=== PATIENT | male | born 1935 | race Caucasian/White ===

== ENCOUNTER → 2016-04-10 | Outpatient (CLI) | payer BC ==
[~2016-04-10] MED LIST: ACET-1175 PO; ALBUAER INH; ASCA500 PO; ASPI81TA28 PO; ATOR-26 PO; CHOL100010 PO; CLOP1TAB15 PO; DICL1GEL12 TOP; DOCU-94 PO; DXY100 PO; FINA5TAB PO; FLVHFA110 INH; INSDGI SC; INSPMPHMLG; INSPMPHMLG SC; IPRA1AER2 INH; LEVO-17 PO; LSN5 PO; MELO15TA4 PO; METO-217 PO; METO100T44 PO; MGNO400 PO; MULT-618 PO; MULT-845 PO; OXYC-57 PO; PHEN-876 PO; PLN/10 PO; PLV75 PO; POLY335019 PO; RBTUDL5 PO; SULF800T23 PO; TAMS0.4C38 PO
[2016-04-10 11:00] LABS: ESTIMATED AVERAGE GLUCOSE 169 mg/dl; HA1C FLAG Normal (Normal)
== END | disposition home or self-care (01) ==
LOC: C.LABBC 08:39
PROVIDERS: ATTEND Nurse Practitioner Adult Health
DX: E10.8 Type 1 diabetes mellitus with unspecified complications (principal)

== ENCOUNTER → 2016-05-24 | Outpatient (CLI) | payer BC ==
[~2016-05-24] MED LIST changes: -CHOL100010 PO; -DXY100 PO; -FLVHFA110 INH; -INSPMPHMLG SC; -METO100T44 PO; +METO1TAB69 PO; -SULF800T23 PO
--- NOTE | 2016-05-24 14:19 | DIAGNOSTIC IMAGING REPORT ---
ULTRASOUND KIDNEYS AND BLADDER CLINICAL HISTORY: Chronic kidney disease. COMPARISON STUDY: Abdominal CT dated 11/05/2015. Renal ultrasound dated 02/07/2014. TECHNIQUE: Real-time, grayscale, and color flow sonography of the kidneys and bladder is performed. Images are reviewed in the transverse and longitudinal planes. FINDINGS: Kidneys: The kidneys are enlarged and demonstrate cortical atrophy. The kidneys are echogenic echogenic suggest with medical renal disease. The right kidney measures 16.5 x 8.4 x 7.6 cm and the left kidney measures 14.1 x 5.0 x 5.3 cm. There is no hydronephrosis. No shadowing renal calculi are identified. There is no sonographic evidence of contour deforming renal mass lesion. No perinephric fluid is identified. Bladder: Prostatomegaly is noted. The bladder is decompressed. The bladder wall appears thickened and trabeculated suggesting chronic outlet obstruction. A left ureteral jet was noted. IMPRESSION: 1. The kidneys are enlarged but demonstrate cortical atrophy and increased echotexture consistent with medical renal disease. 2. There is mild right hydronephrosis. No hydronephrosis is seen on the left. 3. Prostatomegaly with evidence of chronic bladder outlet obstruction. Electronically signed by: Arvind Rea M.D. 05/24/2016 2:18 PM Dictated Date/Time: 05/24/2016 2:15 PM
[2016-05-24 16:55] LABS: BLOOD UREA NITROGEN 52 mg/dl (7-18)
== END | disposition home or self-care (01) ==
LOC: C.ULTRBC 13:02
PROVIDERS: ATTEND Nurse Practitioner Family
DX: D49.4 Neoplasm of unspecified behavior of bladder (principal); N28.9 Disorder of kidney and ureter, unspecified

== ENCOUNTER → 2016-05-30 | Outpatient (CLI) | payer BC ==
[2016-05-30 14:48] LABS: BLOOD UREA NITROGEN 51 mg/dl (7-18); BUN/CREATININE RATIO 17.1 (10-20); CALCIUM 8.7 mg/dl (8.5-10.1); CARBON DIOXIDE 23 mmol/L (21-32); CHLORIDE 107 mmol/L (98-107); GLUCOSE 157 mg/dl (70-99); MAGNESIUM 1.9 mg/dl (1.8-2.4); PHOSPHORUS 3.8 mg/dl (2.5-4.9); POTASSIUM 4.1 mmol/L (3.5-5.1); SODIUM 139 mmol/L (136-145)
== END | disposition home or self-care (01) ==
LOC: C.LAB1850 12:25
PROVIDERS: ATTEND Internal Medicine Nephrology
DX: N28.9 Disorder of kidney and ureter, unspecified (principal)

== ENCOUNTER 2016-06-03 05:04 | Day surgery (SDC) | payer BC ==
[2016-05-23 09:37] VITALS: BMI 29.0
--- NOTE | 2016-05-23 10:18 | PAT Medication Instructions ---
Service Date May 23, 2016. Current Home Medication List Acetaminophen (Tylenol), 650 MG PO HS Albuterol (Proventil Hfa), 2 PUFFS INH Q4 PRN for Cough Ascorbic Acid (Vitamin C), 1 TAB PO QAM Aspirin (Aspirin Ec), 81 MG PO QAM Atorvastatin (Lipitor), 80 MG PO HS Diclofenac Sodium (Topical) (Voltaren 1% Top Gel), 1 DOSE TOP UD PRN for Pain Felodipine (Felodipine ER), 10 MG PO QAM Finasteride (Proscar), 5 MG PO QAM Insulin Human Lispro (Insulin Humalog Pump ), 1 EA N/A UD Ipratropium-Albuterol (Combivent Respimat), 1 PUFFS INH QID PRN for SOB/Wheezing Lisinopril (Lisinopril), 5 MG PO QAM Meloxicam (Meloxicam), 15 MG PO DAILY Metoprolol Succ (Toprol Xl) (Toprol-Xl ), 100 MG PO QAM Metoprolol Succinate (Toprol Xl), 50 MG PO HS Multiple Vitamins W/ Minerals (Centrum Silver Adult 50+), 1 TAB PO QAM Tamsulosin Hcl (Flomax), 0.4 MG PO HS Medication Instructions For Your Scheduled Surgery - Hold the following medications 24 hours prior to surgery: Diclofenac Sodium (Topical) (Voltaren 1% Top Gel), 1 DOSE TOP UD PRN for Pain - Hold the following medications the morning of surgery: Ascorbic Acid (Vitamin C), 1 TAB PO QAM Multiple Vitamins W/ Minerals (Centrum Silver Adult 50+), 1 TAB PO QAM Meloxicam (Meloxicam), 15 MG PO DAILY (otherwise okay to continue per surgeon) Lisinopril (Lisinopril), 5 MG PO QAM - Take the following medications the morning of surgery with a sip of water: Aspirin (Aspirin Ec), 81 MG PO QAM Albuterol (Proventil Hfa), 2 PUFFS INH Q4 PRN for Cough (use if needed; BRING TO HOSPITAL) Metoprolol Succ (Toprol Xl) (Toprol-Xl ), 100 MG PO QAM Felodipine (Felodipine ER), 10 MG PO QAM Finasteride (Proscar), 5 MG PO QAM Ipratropium-Albuterol (Combivent Respimat), 1 PUFFS INH QID PRN for SOB/Wheezing - Take the following medications as scheduled the night before surgery: Tamsulosin Hcl (Flomax), 0.4 MG PO HS Albuterol (Proventil Hfa), 2 PUFFS INH Q4 PRN for Cough Metoprolol Succinate (Toprol Xl), 50 MG PO HS Acetaminophen (Tylenol), 650 MG PO HS Atorvastatin (Lipitor), 80 MG PO HS Ipratropium-Albuterol (Combivent Respimat), 1 PUFFS INH QID PRN for SOB/Wheezing - Keep at basal rate and do not bolus after midnight: Insulin Human Lispro (Insulin Humalog Pump ), 1 EA N/A UD If you have any questions please call us at [phone] or [phone] or [phone]
[2016-05-23 10:56] LABS: BASO % 0.1 %; BASO ABS # 0.01 K/uL (0-0.2); COMPLETE YES; EOS % 1.3 %; HEMATOCRIT 40.1 % (42-52); IG% 0.4 %; LYMPH % 14.7 %; LYMPH ABS # 1.22 K/uL (1.2-3.4); MEAN CELL VOLUME 87.9 fL (80-100); MEAN CORPUSCULAR HEMOGLOBIN 29.4 pg (25-34); MEAN CORPUSCULAR HGB CONC 33.4 g/dl (32-36); MEAN PLATELET VOLUME 10.6 fL (7.4-10.4); MONO % 10.5 %; PLATELET COUNT 202 K/uL (130-400); RED BLOOD COUNT 4.56 M/uL (4.7-6.1)
[2016-05-23 10:58] LABS: URINE APPEARANCE CLEAR (CLEAR); URINE BILIRUBIN NEG (NEG); URINE COLOR YELLOW; URINE EPITHELIAL CELL AUTO 20-30 /lpf (0-5); URINE NITRITE NEG (NEG); URINE PH 5.5 (4.5-7.5); URINE SPECIFIC GRAVITY 1.016 (1.000-1.030); UROBILINOGEN NEG (NEG)
[2016-05-23 11:00] LABS: MANUAL MICROSCOPIC REQUIRED? NO; REVIEW REQ? NO
--- NOTE | 2016-05-23 11:07 | DIAGNOSTIC IMAGING REPORT ---
TWO VIEW CHEST CLINICAL HISTORY: Preoperative examination. FINDINGS: AP and lateral chest radiographs are compared to study dated 11/08/2015 and correlated with chest CT dated 08/31/2011. The heart is enlarged and there is atherosclerotic calcification of the thoracic and. The pulmonary vascular is noncongested. Enlargement the central pulmonary arteries suggests pulmonary artery hypertension. Advanced emphysema with chronic interstitial thickening and nodularity are similar to previous. There is no airspace consolidation typical for pneumonia and no pleural effusion is seen. Apical scarring is observed. There is no pneumothorax. The skeletal structures are osteopenic. The bony thorax appears intact. IMPRESSION: Cardiomegaly and emphysema with no active disease in the chest. Electronically signed by: Arvind Rea M.D. 05/23/2016 11:06 AM Dictated Date/Time: 05/23/2016 11:04 AM
[2016-05-23 11:21] LABS: BUN/CREATININE RATIO 18.6 (10-20); CALCIUM 8.6 mg/dl (8.5-10.1); CREATININE 3.1 mg/dl (0.60-1.40); POTASSIUM 4.1 mmol/L (3.5-5.1)
[~2016-06-03] VITALS: Ht 185.4 cm; Wt 101.6 kg
[~2016-06-03 05:04] MED LIST changes: -CLOP1TAB15 PO; -DOCU-94 PO; -INSDGI SC; -LEVO-17 PO; -MGNO400 PO; -MULT-618 PO; -OXYC-57 PO; -PHEN-876 PO; -PLV75 PO; -POLY335019 PO; -RBTUDL5 PO
[2016-06-03 05:40] VITALS: BP 190/73; PULSE 89; TEMP 36.7; O2SAT 91; Ht 185.4 cm; Wt 101.6 kg
[2016-06-03] MEDS ORDERED: LEVO-17 PO (05:58)
[2016-06-03] MEDS ORDERED: CIPROFLOXACIN / D5W 400 MG IV SCH (06:00)
[2016-06-03] MEDS ORDERED: SODIUM CHLORIDE 0.9% 1000ML 1,000 ML IV ONE (06:00)
[2016-06-03 06:23] LABS: BUN/CREATININE RATIO 18.9 (10-20); CALCIUM 8.3 mg/dl (8.5-10.1); CREATININE 2.9 mg/dl (0.60-1.40)
[2016-06-03 06:34] LABS: BETA-HYDROXYBUTYRATE 6.34 mg/dL (0.2-2.81)
[2016-06-03] MEDS ORDERED: PROPOFOL IV EMULSION 10 MG/ML 20 ML VIAL IV ONE (06:43)
[2016-06-03] MEDS ORDERED: DEXAMETHASONE SOD INJ 4 MG/ML VIAL ONE (06:43)
[2016-06-03] MEDS ORDERED: LIDOCAINE HCL 2% 2 ML VIAL (20MG/ML) ONE (06:43)
[2016-06-03] MEDS ORDERED: FENTANYL CITRATE INJ 50 MCG/1 ML 2 ML VIAL ONE ×2 (06:43→07:58)
[2016-06-03] MEDS ORDERED: MIDAZOLAM HCL 1 MG/ML 2ML VIAL ONE (06:43)
[2016-06-03] MEDS ORDERED: ONDANSETRON INJ 2 MG/ML 2 ML VIAL ONE (06:43)
--- NOTE | 2016-06-03 06:51 | History & Physical Bridge Note ---
H&P Re-Evaluation Bridge Note: I have examined the patient, reviewed the History & Physical and in the interval since the performance of the History & Physical I have noted the following changes of clinical significance: No changes noted
[2016-06-03] MEDS ORDERED: SODIUM CHLORIDE 0.9% 1000ML 1,000 ML IV PRN (07:00)
[2016-06-03] MEDS ORDERED: FENTANYL CITRATE INJ 50 MCG/1 ML 2 ML VIAL IV PRN (07:00)
[2016-06-03] MEDS ORDERED: ONDANSETRON INJ 2 MG/ML 2 ML VIAL IV PRN (07:00)
[2016-06-03] MEDS ORDERED: CONRAY 30% 150ML BOTTLE INSTIL ONE (08:34)
--- NOTE | 2016-06-03 08:36 | [facility] Post Operative Brief Note ---
Immediate Operative Summary Operative Date Jun 03, 2016. Pre-Operative Diagnosis Bladder cancer Post-Operative Diagnosis Bladder cancer Procedure(s) Performed Transuretheral resection bladder tumor Surgeon Dr. 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 Bladder tumor (sent at 0800) - results called by Dr. Duke at 0822; muscle invasive cancer
[2016-06-03] MEDS ORDERED: OXYC-57 PO (08:37)
[2016-06-03] MEDS ORDERED: PHEN-876 PO (08:37)
--- NOTE | 2016-06-03 08:38 | Discharge Instructions ---
Discharge Instructions Visit Reason for Visit: Bladder Neoplasm Discharge Discharge Diagnosis / Problem: BLADDER CANCER Discharge Goals Goal(s): Therapeutic intervention Activity Recommendations Activity Limitations: resume your previous activity (TAKE IT EASY TODAY) Anesthesia . Post Anesthesia Instructions: If you have had General Anesthesia or IV Sedation: * Do not drive today. * Resume driving when surgeon permits. * Do not make important decisions or sign legal documents today. * Call surgeon for: 1. Temperature elevations greater than 101 degrees F. 2. Uncontrollable pain. 3. Excessive bleeding. 4. Persistent nausea and vomiting. 5. Medication intolerance (nausea, vomiting or rash). * For nausea and vomiting use only clear liquids such as: tea, soda, bouillon until nausea subsides, then gradually increase diet as tolerated. * If you have any concerns or questions, call your surgeon's office. If physician is unavailable and it is an emergency, call 911 or go to the nearest emergency room. . Diet Recommendations Recommended Home Diet: resume previous diet Procedures Procedures Performed: Transuretheral resection bladder tumor Pending Studies Studies pending at discharge: no Medical Emergencies . Who to Call and When: Medical Emergencies: If at any time you feel your situation is an emergency, please call 911 immediately. . Non-Emergent Contact Non-Emergency issues call your: Urologist . . "Provider Documentation" section prepared by Corby Jon. PA Drug Monitoring Program Search Results: patient reviewed within database
[2016-06-03] MEDS ORDERED: OXYCODONE/ACETAMINOPHEN 5-325 TAB PO PRN (08:45)
--- NOTE | 2016-06-03 09:04 | Anesthesiology Progress Note ---
Anesthesia Post Op Note Date & Time Jun 03, 2016 at 09:04 Vital Signs Pain Intensity: 0 Vital Signs Past 12 Hours Date Time Temp Pulse Resp B/P Pulse Ox O2 Delivery O2 Flow Rate FiO2 06/03/16 08:55 80 11 06/03/16 08:55 80 11 95 06/03/16 08:54 145/66 06/03/16 08:50 78 15 100 06/03/16 08:50 78 15 06/03/16 08:49 78 15 06/03/16 08:49 78 15 148/68 100 06/03/16 08:44 82 18 153/64 100 06/03/16 08:44 82 18 06/03/16 08:39 36.7 80 19 139/64 99 Mask 10 06/03/16 08:39 80 27 146/64 98 06/03/16 08:39 80 27 06/03/16 05:40 36.7 89 20 190/73 91 Room Air Notes Mental Status: alert / awake / arousable, participated in evaluation Pt Amnestic to Procedure: Yes Nausea / Vomiting: adequately controlled Pain: adequately controlled Airway Patency, RR, SpO2: stable & adequate BP & HR: stable & adequate Hydration State: stable & adequate Anesthetic Complications: no major complications apparent
[2016-06-03 09:23] VITALS: BP 143/69; PULSE 78; TEMP 36.2; O2SAT 86
--- NOTE | 2016-06-03 09:37 | OPERATIVE REPORT ---
DATE OF OPERATION: 06/03/2016 PREOPERATIVE DIAGNOSIS: Bladder cancer. POSTOPERATIVE DIAGNOSIS: Muscle invasive bladder cancer, plus distal right ureteral stricture. PROCEDURE: Cystoscopy, bilateral retrograde pyelograms, transurethral resection of large bladder tumor with fulguration. FINDINGS: Cystoscopic exam revealed normal urethra, prostatic fossa was ischemic secondary to his radiation. Bladder showed a papillary frondular tumor on the dome and right lateral wall. Left and right retrogrades showed a distal right ureteral stricture with proximal hydronephrosis. There were no filling defects in the collecting system. SURGEON: Dr. Jon. ANESTHESIA: General. DRAINS: None. COMPLICATIONS: None. SPECIMENS: Bladder tumor fragments. INDICATIONS: The patient is an 81-year-old white male who on routine surveillance cystoscopy for hematuria evaluation was found to have a large bladder tumor. He is being brought in for resection. PROCEDURE: After the induction of an adequate general anesthetic and appropriate time-out, the patient was placed in the dorsal lithotomy position, lower abdomen and genitalia were prepped with Hibiclens and draped in a sterile fashion. Next, using an open ended catheter, retrograde pyelograms were performed on the left side. The dye went up freely on the right side. There was a distal ureteral stricture. I tried to pass a wire on the right side past the stricture, but was unable to get anything to go by the stricture, but as I watched the right ureteral orifice dye that I put up and the kidney did drain. After completing the retrograde I switched to a resection scope and hot cautery loop and resected the tumor primarily at the dome, and then fulgurated the area for hemostasis. I sent some of the fragments for frozen section and they came back as a muscle invasive carcinoma. So at this point I fulgurated the rest of the resection site for hemostasis. There is still some tumor remaining, but since the patient is going to need additional treatment, I felt that I did not need to resect anymore. After completing this and making sure there was no bleeding and getting all of the tumor fragments out of the bladder with an Ellik evacuator, the bladder was drained. The resection scope and sheath were removed. All needle, sponge and instrument counts were correct at the end of the case. The patient tolerated the procedure well and went to the recovery room in stable condition. I attest to the content of the Intraoperative Record and any orders documented therein. Any exceptio ns are noted below.
--- NOTE | 2016-06-03 09:49 | DIAGNOSTIC IMAGING REPORT ---
Retrograde pyelogram RETROGRADE INCLUDES KUB CLINICAL HISTORY: RETROGRADE abnormal ultrasound TECHNIQUE: Image intensifier COMPARISON STUDY: None FINDINGS: Retrograde opacification of the left ureter and collecting system shows a small filling defect of the left ureteropelvic junction. This potentially represents an air bubble. Retrograde opacification of the right ureter and collecting system demonstrates moderate dilatation of the right ureter and collecting system. Etiology is unknown. IMPRESSION: Moderate dilatation right ureter and right renal collecting system. Negative upper left tracts possible, with a small filling defect versus air bubble at ureteral pelvic junction. Electronically signed by: Jose Pereyra M.D. 06/03/2016 9:48 AM Dictated Date/Time: 06/03/2016 9:46 AM
[2016-06-03 09:54] VITALS: BP 133/54; PULSE 77; O2SAT 98
[2016-06-03 10:41] VITALS: BP 133/54; PULSE 77; TEMP 36.2; O2SAT 98
[2016-08-29] MEDS ORDERED: MGNO400 PO (15:30)
[2016-08-29] MEDS ORDERED: RBTUDL5 PO (15:30)
[2016-09-04] MEDS ORDERED: DOCU-94 PO (11:52)
[2016-09-04] MEDS ORDERED: INSPMPHMLG (12:12)
[2016-11-21] MEDS ORDERED: PLV75 PO (11:06)
[2016-11-22] MEDS ORDERED: CLOP1TAB15 PO (09:26)
== END 2016-06-03 10:20 | disposition home or self-care (01) ==
LOC: C.ACU 05:04
PROVIDERS: ATTEND Urology
DX: C67.1 Malignant neoplasm of dome of bladder (principal); C67.2 Malignant neoplasm of lateral wall of bladder; L57.0 Actinic keratosis; N13.1 Hydronephrosis with ureteral stricture, not elsewhere classified; E10.3299 Type 1 diabetes mellitus with mild nonproliferative diabetic retinopathy without macular edema, unspecified eye; R80.9 Proteinuria, unspecified; I25.10 Atherosclerotic heart disease of native coronary artery without angina pectoris; E10.21 Type 1 diabetes mellitus with diabetic nephropathy; E78.5 Hyperlipidemia, unspecified; Z85.46 Personal history of malignant neoplasm of prostate; G47.33 Obstructive sleep apnea (adult) (pediatric); I73.9 Peripheral vascular disease, unspecified; I10 Essential (primary) hypertension; Z87.891 Personal history of nicotine dependence

== ENCOUNTER → 2016-06-05 | Outpatient (CLI) | payer BC ==
[~2016-06-05] MED LIST changes: +CLOP1TAB15 PO; +DOCU-94 PO; +INSDGI SC; +LEVO-17 PO; -LSN5 PO; +MGNO400 PO; +MULT-618 PO; +OXYC-57 PO; +PHEN-876 PO; +PLV75 PO; +POLY335019 PO; +RBTUDL5 PO
[2016-06-05 16:58] LABS: BLOOD UREA NITROGEN 45 mg/dl (7-18); GLUCOSE 151 mg/dl (70-99)
[2016-06-05 16:59] LABS: BUN/CREATININE RATIO 15.6 (10-20); CALCIUM 8.6 mg/dl (8.5-10.1); CARBON DIOXIDE 23 mmol/L (21-32); CHLORIDE 109 mmol/L (98-107); PHOSPHORUS 3.8 mg/dl (2.5-4.9); POTASSIUM 3.9 mmol/L (3.5-5.1); SODIUM 143 mmol/L (136-145)
== END | disposition home or self-care (01) ==
LOC: C.LABBC 14:51
PROVIDERS: ATTEND Urology
DX: N28.9 Disorder of kidney and ureter, unspecified (principal)

== ENCOUNTER → 2016-06-11 | Outpatient (CLI) | payer BC ==
--- NOTE | 2016-06-11 16:02 | DIAGNOSTIC IMAGING REPORT ---
ABDOMEN AND PELVIS CT WITHOUT CONTRAST CT DOSE: 1002.26 mGycm HISTORY: Prostate carcinoma C61 Malignant neoplasm of [id number] Bladder cancer non contra TECHNIQUE: Multiaxial CT images of the abdomen and pelvis were performed without contrast. COMPARISON STUDY: Retrograde Amended dated 05/24/2016 FINDINGS: Bases are clear. Liver spleen and pancreas are unremarkable. Small gallstone the region of the gallbladder neck. Kidneys negative for hydronephrosis. There is significant right renal hydroureteronephrosis. Somewhat progressive perinephric fat stranding is present. Etiology of the obstructive change is not clear. There is significant bladder wall thickening. There is air within the bladder. Bowel pattern overall is nonobstructive. IMPRESSION: 1. Right renal hydroureteronephrosis with distended right ureter extending to the bladder. 2. Bladder wall thickening of uncertain etiology. 3. Repeat cystoscope of the bladder is recommended to exclude to exclude an obstructing lesion at the ureteropelvic junction. 4. Study is otherwise negative status post total left hip arthroplasty Electronically signed by: Jose Pereyra M.D. 06/11/2016 4:00 PM Dictated Date/Time: 06/11/2016 3:56 PM
== END | disposition home or self-care (01) ==
LOC: C.CTS 15:39
PROVIDERS: ATTEND Urology
DX: C61 Malignant neoplasm of prostate (principal); C67.9 Malignant neoplasm of bladder, unspecified; N13.30 Unspecified hydronephrosis; Z96.642 Presence of left artificial hip joint

== ENCOUNTER → 2016-06-21 | Outpatient (CLI) | payer BC ==
--- NOTE | 2016-06-21 17:48 | DIAGNOSTIC IMAGING REPORT ---
ABDOMEN AND PELVIS CT WITHOUT CONTRAST CT DOSE: 887.60 mGy.cm HISTORY: Bladder carcinoma. Kidney obstruction. BLADDER CANCER TECHNIQUE: Multiaxial CT images of the abdomen and pelvis were performed without contrast. COMPARISON STUDY: 06/11/2016 FINDINGS: 3 mm nodular density posterior aspect right lower lobe. Lung bases otherwise are clear. Small calcified granuloma medial aspect left base. Underlying emphysematous change. Gallstone within the gallbladder. Liver is uniform. Spleen contains multiple calcified granulomas. Left kidney is negative for hydronephrosis. There are findings of progressive hydroureteronephrosis of the right kidney. Progressive right perinephric infiltrative change as well as periureteral infiltrative change. Possible debris distal aspect right ureter. A persistent asymmetric bladder wall thickening. Total left hip arthroplasty. Radioactive seeds within the prosthetic bed. Bowel pattern overall is nonobstructive. IMPRESSION: 1. Progressive right-sided hydroureteronephrosis. 2. Progressive right perinephric and periureteral infiltrative change. 3. Possible abnormal debris and/or soft tissue within the distal right ureter. Graft 4. Unchanged asymmetric bladder wall thickening. 5. Nonobstructive bowel pattern. 6. Small gallstone unchanged Electronically signed by: Jose Pereyra M.D. 06/21/2016 5:46 PM Dictated Date/Time: 06/21/2016 5:42 PM
== END | disposition home or self-care (01) ==
LOC: C.CTS 17:05
PROVIDERS: ATTEND Urology
DX: C61 Malignant neoplasm of prostate (principal); C67.9 Malignant neoplasm of bladder, unspecified

== ENCOUNTER → 2016-06-28 | Outpatient (CLI) | payer BC ==
--- NOTE | 2016-06-28 16:46 | DIAGNOSTIC IMAGING REPORT ---
CHEST CT WITHOUT CONTRAST CT DOSE: 528.49 mGy.cm HISTORY: Leukemia ACUTE MYELOID LEUKEMIA WITH 11Q23 TECHNIQUE: Multiaxial CT images of the chest were performed without contrast. COMPARISON: 05/24/2008 FINDINGS: Lungs are considered generally clear. Minimal scattered fibrotic changes present. There are several scattered calcified granulomas. Several nodular densities right midlung measuring up to 7 mm. Several calcified mediastinal and/or hilar nodes. Several noncalcified nodes are present measuring up to 1.9 cm in the pretracheal region. There is moderate atherosclerotic change thoracic aorta. Evaluation the upper abdomen shows presence of small gallstone the region of the gallbladder neck. Moderate right renal hydronephrosis. There is fatty Lasix of the pancreas. IMPRESSION: 1. Lungs are grossly clear. 2. Scattered calcified granulomas as well as several noncalcified nodules as well as mediastinal and hilar nodes. 3. Right renal hydronephrosis. 4. Small gallstone. 5. Follow-up per Fleischner criteria Please refer to below summary of Fleischner criteria recommendations for follow-up of incidental CT nodules (Clay Jordan, Guidelines for management of small pulmonary nodules detected on CT scans: A statement from the Fleischner Society, Radiology 237: [phone].) Low Risk Patient: Minimal or no smoking or other known risk factors for malignancy <=4 mm: No follow-up needed. >4-6 mm: Initial follow-up CT at 12 months; if unchanged, no further follow-up. >6-8 mm: Initial follow-up CT at 6-12 months then at 18-24 months if no change. >8 mm: Follow-up CT at \R\3, 9, 24 months, or PET and/or biopsy. High Risk Patient: History of smoking or other known risk factors <=4 mm: Follow-up at 12 months; if unchanged, no further follow-up. >4-6 mm: Initial follow-up CT at 6-12 months then at 18-24 months if no change. >6-8 mm: Initial follow-up CT at 3-6 months then at 9-12 and 24 months if no change. >8 mm: Same as low risk patient. Note: Nodule size measured as average of length and width. Ground glass or partly solid nodules may require longer follow-up to exclude indolent adenocarcinoma. Electronically signed by: Jose Pereyra M.D. 06/28/2016 4:45 PM Dictated Date/Time: 06/28/2016 4:42 PM
== END | disposition home or self-care (01) ==
LOC: C.CTS 15:30
PROVIDERS: ATTEND Family Medicine
DX: C92.62 Acute myeloid leukemia with 11q23-abnormality in relapse (principal); J84.10 Pulmonary fibrosis, unspecified; R91.8 Other nonspecific abnormal finding of lung field; N13.30 Unspecified hydronephrosis

== ENCOUNTER → 2016-07-24 | Outpatient (CLI) | payer BC ==
[~2016-07-24] MED LIST changes: +METO100T44 PO; -METO1TAB69 PO
[2016-07-24 09:55] LABS: BLOOD UREA NITROGEN 57 mg/dl (7-18); BUN/CREATININE RATIO 29.8 (10-20); CALCIUM 8.9 mg/dl (8.5-10.1); CARBON DIOXIDE 23 mmol/L (21-32); CHLORIDE 108 mmol/L (98-107); GLUCOSE 252 mg/dl (70-99); PHOSPHORUS 4.1 mg/dl (2.5-4.9); POTASSIUM 4.4 mmol/L (3.5-5.1); SODIUM 140 mmol/L (136-145)
[2016-07-24 09:56] LABS: ESTIMATED AVERAGE GLUCOSE 151 mg/dl; HA1C FLAG Normal (Normal)
== END | disposition home or self-care (01) ==
LOC: C.LAB1850 07:57
PROVIDERS: ATTEND Internal Medicine Nephrology
DX: N28.9 Disorder of kidney and ureter, unspecified (principal); E10.649 Type 1 diabetes mellitus with hypoglycemia without coma

== ENCOUNTER → 2016-08-15 | Outpatient (CLI) | payer BC ==
--- NOTE | 2016-08-15 12:47 | DIAGNOSTIC IMAGING REPORT ---
CT SCAN OF THE ABDOMEN AND PELVIS WITHOUT CONTRAST CLINICAL HISTORY: Bladder carcinoma COMPARISON STUDY: 06/21/2016 TECHNIQUE: CT scan of the abdomen and pelvis was performed from the lung bases to the proximal femurs. Images are reviewed in the axial, sagittal, and coronal planes. IV contrast was not administered for this examination. CT DOSE: 729.35 mGy.cm FINDINGS: Lower chest: There is underlying pulmonary emphysema. Calcified left lower lobe granulomas are visualized. There is small hiatal hernia. Liver: The unenhanced liver is normal in size, contour, and attenuation. There is no intrahepatic biliary ductal dilatation. Gallbladder: Cholelithiasis Spleen: There is scattered granulomatous calcifications. Pancreas: Unremarkable. Adrenal glands: Unremarkable. Kidneys: No renal calculi are visualized. There is persistent but decreasing right-sided hydronephrosis. There is decreased perinephric and periureteral edema. The patient appears to have a right lower quadrant ileal loop diversion. Bowel: There are no transition zones to indicate bowel obstruction. No acute inflammatory changes are visualized Peritoneum: There is no intraperitoneal free air or abdominal ascites. Vasculature: The abdominal aorta is normal in course and caliber. Adenopathy: None. Pelvic viscera: The patient appears be status post an interval cystectomy and right lower quadrant ileal loop diversion. Skeletal structures: No destructive osseous lesions are seen. IMPRESSION: 1. Interval cystectomy and creation of a right lower quadrant ileal loop diversion 2. No evidence of pathologic adenopathy 3. Persistent but decreasing right-sided hydronephrosis with decreasing right perinephric and periureteral edema 4. No evidence of bowel obstruction. No evidence of free air 5. No evidence of pathologic adenopathy 6. Cholelithiasis Electronically signed by: Cornell Morales M.D. 08/15/2016 12:46 PM Dictated Date/Time: 08/15/2016 12:41 PM
--- NOTE | 2016-08-15 12:54 | DIAGNOSTIC IMAGING REPORT ---
CHEST CT WITHOUT CONTRAST CT DOSE: HISTORY: Pulmonary nodularity BLADDER CA TECHNIQUE: Multiaxial CT images of the chest were performed without contrast. COMPARISON: 06/28/2016 FINDINGS: Several parenchymal nodules in the right to lesser extent left hemithoracic region. Nodular densities on the right and shows slight interval increase in size by approximately 1 to a maximum 2 mm. Nodular density transaxial images 38 and has increased to 8 mm from 6.9 mm. Small pleural-based densities posterior aspect right hemithorax have increased by no more than 1 mm. A nodular density right lateral costophrenic angle has increased to 8 mm from 5 mm. Several calcific granulomas bilaterally are stable. There are no focal infiltrative changes. Mid mediastinal adenopathy is unaltered. IMPRESSION: 1. Very slight increase in size of several small parenchymal nodules primarily in the right hemithorax. 2. Unchanging mediastinal adenopathy. Electronically signed by: Jose Pereyra M.D. 08/15/2016 12:52 PM Dictated Date/Time: 08/15/2016 12:50 PM
== END | disposition home or self-care (01) ==
LOC: C.CTS 12:12
PROVIDERS: ATTEND Internal Medicine Hematology & Oncology
DX: C67.9 Malignant neoplasm of bladder, unspecified (principal)

== ENCOUNTER 2016-08-24 10:58 | Inpatient (IN) | payer BC, OTHER ==
[~2016-08-24] VITALS: Ht 185.4 cm; Wt 91.5 kg
[2016-08-24] VITALS (8 sets, daily range): BP systolic 112–130; BP diastolic 46–53; PULSE 81–91; TEMP 36.5–36.8; O2SAT 94–96; BMI 26.6
[~2016-08-24 10:58] MED LIST changes: -CLOP1TAB15 PO; -DOCU-94 PO; -INSDGI SC; -MGNO400 PO; -MULT-618 PO; -PLV75 PO; -POLY335019 PO; -RBTUDL5 PO
[2016-08-24] MEDS ORDERED: NovoLIN-R INSULIN PER UNIT CHARGE IV STA (11:05)
[2016-08-24] MEDS ORDERED: SODIUM CHLORIDE 0.9% 1000ML 1,000 ML IV STA ×2 (11:05)
[2016-08-24] MEDS ORDERED: ONDANSETRON INJ 2 MG/ML 2 ML VIAL IV STA (11:05)
--- NOTE | 2016-08-24 11:22 | DIAGNOSTIC IMAGING REPORT ---
CHEST ONE VIEW PORTABLE CLINICAL HISTORY: EVALUATE ALTERED MENTAL STATUS/WEAKNESS dyspnea COMPARISON STUDY: 05/23/2016 FINDINGS: Mild stable cardiomegaly. Subtle chronic interstitial change. No focal infiltrate. Diaphragms smooth. IMPRESSION: Chronic change. No acute process. Electronically signed by: Jose Pereyra M.D. 08/24/2016 11:21 AM Dictated Date/Time: 08/24/2016 11:20 AM
--- NOTE | 2016-08-24 11:45 | EMERGENCY ROOM VISIT NOTE ---
History Report prepared by Yulissa: Rosie Hunt Under the Supervision of: Dr. Arvind Chavez M.D. First contact with patient: 11:01 Chief Complaint: HYPERGLYCEMIA Stated Complaint: HYPERGLYCEMIA History of Present Illness The patient is an 81 year old male who presents to the Emergency Room with complaints of worsening weakness starting 5 days ago. He arrives to the ED by EMS. His blood sugar was found to be elevated. He is currently undergoing immunotherapy for bladder cancer. He has had his bladder removed and now has a urostomy in place. He has been feeling weak for awhile, but 5 days ago, his weakness worsened. Yesterday he started vomiting. He denies any diarrhea or fever. He reports that he feels thirsty enough to drink a gallon of water. He has not been eating well. He denies making any adjustments to his insulin pump. Source of History: patient Onset: 5 days ago Position: other (global) Quality: other (weakness) Timing: worsening Associated Symptoms: + vomiting, No diarrhea, No fevers Note: Pt reports thirst, decreased appetite. Review of Systems See HPI for pertinent positives & negatives. A total of 10 systems reviewed and were otherwise negative. Past Medical & Surgical Medical Problems: (1) Asthmatic bronchitis with acute exacerbation (2) Bladder cancer (3) Diabetes mellitus type 1 (4) Hypoxia (5) Tachycardia Family History Diabetes mellitus Heart disease Hypertension Social History Smoking Status: Former Smoker Alcohol Use: occasionally Drug Use: none Marital Status: Housing Status: lives with family Occupation Status: retired Current/Historical Medications Scheduled Acetaminophen (Tylenol), 650 MG PO HS Ascorbic Acid (Vitamin C), 1 TAB PO QAM Aspirin (Aspirin Ec), 81 MG PO QAM Atorvastatin (Lipitor), 80 MG PO HS Felodipine (Felodipine ER), 10 MG PO QAM Finasteride (Proscar), 5 MG PO QAM Insulin Human Lispro (Insulin Humalog Pump ), 1 EA N/A UD Levofloxacin (Levaquin), 250 MG PO QPM Meloxicam (Meloxicam), 15 MG PO DAILY Metoprolol Succ (Toprol Xl) (Toprol-Xl ), 100 MG PO QAM Metoprolol Succinate (Toprol Xl), 50 MG PO HS Multiple Vitamins W/ Minerals (Centrum Silver Adult 50+), 1 TAB PO QAM Tamsulosin Hcl (Flomax), 0.4 MG PO HS Scheduled PRN Albuterol (Proventil Hfa), 2 PUFFS INH Q4 PRN for Cough Diclofenac Sodium (Topical) (Voltaren 1% Top Gel), 1 DOSE TOP UD PRN for Pain Ipratropium-Albuterol (Combivent Respimat), 1 PUFFS INH QID PRN for SOB/Wheezing Oxycodone/Acetaminophen 5MG/325MG (Percocet 5MG/325MG), 1-2 TABLETS PO Q4H PRN for Pain Phenazopyridine HCl (Pyridium), 200 MG PO TID PRN for Bladder pain Allergies Coded Allergies: Iodine (Verified Adverse Reaction, Mild, GI SYMPTOMS, 06/03/16) Shellfish (Verified Adverse Reaction, Unknown, VOMITING, 06/03/16) Physical Exam Vital Signs Date Time Temp Pulse Resp B/P Pulse Ox O2 Delivery O2 Flow Rate FiO2 08/24/16 12:30 91 26 142/54 100 Nebulizer 7.0 08/24/16 12:12 94 30 151/53 97 Room Air 08/24/16 11:10 99 Room Air 08/24/16 11:07 36.5 101 20 160/57 98 Room Air 08/24/16 11:06 102 Physical Exam GENERAL: Patient is in no acute distress. HEENT: No acute trauma, normocephalic atraumatic, mucous membranes extremely dry , no nasal congestion, no scleral icterus. NECK: No stridor, no adenopathy, no meningismus, trachea is midline. LUNGS: Clear to auscultation bilaterally, no wheeze, no rhonchi, breath sounds equal, increased respiratory rate. HEART: Without murmurs gallops or rubs, regular rate and rhythm. ABDOMEN: Soft, nontender, bowel sounds positive, no hernias, no peritonitis, urostomy present draining yellow urine. EXTREMITIES: No cyanosis or edema, full range of motion of all the joints without pain or difficulty, no signs for acute trauma. NEUROLOGIC: Oriented x 3, no acute motor or sensory deficits, no focal weakness. SKIN: No rash, no jaundice, no diaphoresis. Medical Decision & Procedures ER Provider Diagnostic Interpretation: X-ray results as stated below per interpretation by me and the radiologist: CHEST ONE VIEW PORTABLE CLINICAL HISTORY: EVALUATE ALTERED MENTAL STATUS/WEAKNESS dyspnea COMPARISON STUDY: 05/23/2016 FINDINGS: Mild stable cardiomegaly. Subtle chronic interstitial change. No focal infiltrate. Diaphragms smooth. IMPRESSION: Chronic change. No acute process. Electronically signed by: Jose Pereyra M.D. 08/24/2016 11:21 AM Dictated Date/Time: 08/24/2016 11:20 AM Laboratory Results 08/24/16 10:50 Red Blood Count 4.15, Mean Corpuscular Volume 90.4, Mean Corpuscular Hemoglobin 27.7, Mean Corpuscular Hemoglobin Concent 30.7, Mean Platelet Volume 10.4, Neutrophils (%) (Auto) 89.1, Lymphocytes (%) (Auto) 3.5, Monocytes (%) (Auto) 5.9, Eosinophils (%) (Auto) 0.0, Basophils (%) (Auto) 0.0, Neutrophils # (Auto) 20.50, Lymphocytes # (Auto) 0.80, Monocytes # (Auto) 1.35, Eosinophils # (Auto) 0.00, Basophils # (Auto) 0.00 08/24/16 10:50 Test 08/24/16 10:50 08/24/16 11:05 08/24/16 11:10 White Blood Count 23.00 K/uL (4.8-10.8) Red Blood Count 4.15 M/uL (4.7-6.1) Hemoglobin 11.5 g/dL (14.0-18.0) Hematocrit 37.5 % (42-52) Mean Corpuscular Volume 90.4 fL (80-100) Mean Corpuscular Hemoglobin 27.7 pg (25-34) Mean Corpuscular Hemoglobin Concent 30.7 g/dl (32-36) Platelet Count 470 K/uL (130-400) Mean Platelet Volume 10.4 fL (7.4-10.4) Neutrophils (%) (Auto) 89.1 % Lymphocytes (%) (Auto) 3.5 % Monocytes (%) (Auto) 5.9 % Eosinophils (%) (Auto) 0.0 % Basophils (%) (Auto) 0.0 % Neutrophils # (Auto) 20.50 K/uL (1.4-6.5) Lymphocytes # (Auto) 0.80 K/uL (1.2-3.4) Monocytes # (Auto) 1.35 K/uL (0.11-0.59) Eosinophils # (Auto) 0.00 K/uL (0-0.5) Basophils # (Auto) 0.00 K/uL (0-0.2) RDW Standard Deviation 54.8 fL (36.4-46.3) RDW Coefficient of Variation 16.4 % (11.5-14.5) Immature Granulocyte % (Auto) 1.5 % Immature Granulocyte # (Auto) 0.35 K/uL (0.00-0.02) Hypersegmented Polys 1+ Toxic Vacuolation 1+ Anion Gap 32.0 mmol/L (3-11) Est Creatinine Clear Calc Drug Dose 20.4 ml/min Estimated GFR () 20.5 Estimated GFR (Non- 17.6 BUN/Creatinine Ratio 26.7 (10-20) Calcium Level 8.8 mg/dl (8.5-10.1) Magnesium Level 2.5 mg/dl (1.8-2.4) Total Bilirubin 0.5 mg/dl (0.2-1) Aspartate Amino Transf (AST/SGOT) 17 U/L (15-37) Alanine Aminotransferase (ALT/SGPT) 29 U/L (12-78) Alkaline Phosphatase 168 U/L (45-117) Total Creatine Kinase 42 U/L (39-308) Troponin I 0.019 ng/ml (0-0.045) Total Protein 7.4 gm/dl (6.4-8.2) Albumin 2.1 gm/dl (3.4-5.0) Globulin 5.3 gm/dl (2.5-4.0) Albumin/Globulin Ratio 0.4 (0.9-2) Beta-Hydroxybutyric Acid 112.70 mg/dL (0.2-2.81) Thyroid Stimulating Hormone (TSH) 3.010 uIu/ml (0.300-4.500) Bedside Glucose > 600 mg/dl (70-99) Laboratory results reviewed by me. Medications Administered Medications (Trade) Dose Ordered Sig/Sosa Route Start Time Stop Time Status Last Admin Dose Admin Ondansetron HCl 4 mg 4 mg NOW STAT IV 08/24/16 11:05 08/24/16 11:09 DC 08/24/16 11:22 4 MG Sodium Chloride 1,000 ml @ 999 mls/hr Q1H1M STAT IV 08/24/16 11:05 08/24/16 12:05 DC 08/24/16 11:24 999 MLS/HR Sodium Chloride (Nss 1000ml) 1,000 ml @ 200 mls/hr Q5H STAT IV 08/24/16 11:05 08/24/16 16:04 08/24/16 12:11 200 MLS/HR Insulin Human Regular (novoLIN-R U-100 PER UNIT) 10 units NOW STAT IV 08/24/16 11:05 08/24/16 11:09 DC 08/24/16 11:22 10 UNITS Albuterol/ Ipratropium (Duoneb) 3 ml NOW STAT INH 08/24/16 12:00 08/24/16 12:05 DC 08/24/16 12:36 3 ML ECG Indication: weakness Rate (beats per minute): 98 Rhythm: normal sinus Findings: no acute ischemic change, no ectopy ED Course 1103: The patient was evaluated in room C9. A complete history and physical exam was performed. 1105: Insulin Human Regular 10 units IV, NSS 1000 ml @ 200 mls/hr IV, NSS 1000 ml @ 999 mls/hr IV, Zofran Inj 4 mg IV. 1200: Duoneb 3 ml INH, Insulin Protocol Severe Stress 1 ea, Insulin Protocol Dka Goal Range 1 ea, Insulin IV Infusion Protocol 1 ea. 1205: I reevaluated the patient. I discussed results and treatment plan with the patient and his family. They verbalize agreement and understanding. The patient will be evaluated for further management. 1209: I discussed the patient's case with Dr. Dowell, [facility] [place] - hospitalist. The patient will be evaluated for further management. Medical Decision Differential diagnoses considered include DKA, UTI, pneumonia, cellulitis, electrolyte imbalance, anemia, cardiac ischemia, medication reaction. There is a significant leukocytosis at over 20,000, this could be consistent with infection or just the stress of his situation. No concerning anemia. Renal panel testing shows acidosis and hyperkalemia with acute renal failure. Blood sugar was quite elevated at around 1 thousand. There was no hepatitis. The patient appeared to be in a euthyroid state. Chest film does not show pneumonia or CHF. EKG shows a sinus rhythm, no acute ischemia. Cardiac enzyme testing times one is not consistent with acute cardiac injury. Urinalysis result is pending, blood cultures are pending. The patient appeared to be in DKA, he was quite dehydrated. He received IV insulin, IV saline. He was given a DuoNeb because of the hyperkalemia. He was placed on an insulin drip per protocol. He was given some IV Zofran for nausea. The patient is in need of hospitalization. I spoke with the patient and to case management. I talked with his family. The on-call hospitalist has been consulted. The patient does seem to be doing fairly well with his treatment here in the emergency room. Consults Time Called: 1208 Consulting Physician: Dr. Dowell [facility] [place] - hospitalist Returned Call: 1202 I discussed the patient's case with him. The patient will be evaluated for further management. Impression Primary Impression: DKA (diabetic ketoacidoses) Additional Impressions: Dehydration Vomiting Critical Care I have personally spent greater than 30 minutes of critical care time in the direct management of this patient. This includes bedside care, interpretation of diagnostic studies and testing, discussion with consultants, the patient, and family members, and other required patient management activities. This 30 minutes is in excess of all separately billable procedures. Scribe Attestation The scribe's documentation has been prepared under my direction and personally reviewed by me in its entirety. I confirm that the note above accurately reflects all work, treatment, procedures, and medical decision making performed by me. Departure Information Dispostion Being Evaluated By Hospitalist Referrals Vick Almanzar M.D. (PCP) Patient Instructions My [facility] Problem Qualifiers
[2016-08-24 11:55] LABS: ALB/GLOB RATIO 0.4 (0.9-2); BUN/CREATININE RATIO 26.7 (10-20); CALCIUM 8.8 mg/dl (8.5-10.1); CREATININE 3.1 mg/dl (0.60-1.40); MAGNESIUM 2.5 mg/dl (1.8-2.4); POTASSIUM 6.1 mmol/L (3.5-5.1); THYROID STIMULATING HORMONE 3.01 uIu/ml (0.300-4.500)
[2016-08-24] MEDS ORDERED: ALBUT/IPRATROP 3MG/0.5MG NEB 3 ML VIAL INH STA (12:00)
[2016-08-24] MEDS ORDERED: INSULIN IV INFUSION PROTOCOL STA ×2 (12:00→12:46)
[2016-08-24] MEDS ORDERED: SEVERE STRESS LEVEL ONE ×2 (12:00→13:00)
[2016-08-24] MEDS ORDERED: DKA GOAL RANGE 150-250 mg/dl 1 EA ONE ×2 (12:00→13:00)
[2016-08-24 12:04] LABS: HEMATOCRIT 37.5 % (42-52); MEAN CELL VOLUME 90.4 fL (80-100); MEAN CORPUSCULAR HEMOGLOBIN 27.7 pg (25-34); MEAN CORPUSCULAR HGB CONC 30.7 g/dl (32-36); MEAN PLATELET VOLUME 10.4 fL (7.4-10.4); PLATELET COUNT 470 K/uL (130-400); RED BLOOD COUNT 4.15 M/uL (4.7-6.1)
[2016-08-24 12:05] LABS: COMPLETE YES; HYPERSEGMENTED POLYS 1+; IG% 1.5 %; LYMPH % 3.5 %; MONO % 5.9 %; NEUT % 89.1 %; VACUOLIZATION 1+
[2016-08-24 12:26] LABS: BETA-HYDROXYBUTYRATE 112.7 mg/dL (0.2-2.81)
[2016-08-24] MEDS ORDERED: INSULIN HUMAN REGULAR IV BOLUS 3.5 UNIT in SYRINGE 0 ML IV ONE (12:45)
[2016-08-24] MEDS ORDERED: GLUCOSE 40% GEL 15 GM TUBE PO PRN (12:45)
[2016-08-24] MEDS ORDERED: GLUCAGON FOR INJ 1 MG VIAL SQ PRN (12:45)
[2016-08-24] MEDS ORDERED: DEXTROSE 50% 50 ML SYR IV PRN (12:45)
[2016-08-24] MEDS ORDERED: GLUCOSE 10 TABS/TUBE PO PRN (12:45)
[2016-08-24] MEDS ORDERED: POLY335019 PO (12:46)
[2016-08-24] MEDS ORDERED: INSDGI SC (12:46)
[2016-08-24] MEDS ORDERED: SODIUM CHLORIDE 0.9% 1000ML 1,000 ML IV ONE (12:46)
[2016-08-24] MEDS ORDERED: INSPMPHMLG (12:46)
[2016-08-24] MEDS ORDERED: MULT-618 PO (12:46)
[2016-08-24] MEDS ORDERED: INSULIN REGULAR 250 UNITS in SODIUM CHLORIDE 0.9% 250ML 250 ML IV SCH (12:50)
[2016-08-24] MEDS ORDERED: MoRPHine SULFATE 2 MG/ML CARP IV PRN (13:00)
[2016-08-24] MEDS ORDERED: ACETAMINOPHEN 325 MG TAB PO PRN (13:00)
[2016-08-24] MEDS ORDERED: INSULIN ASPART 100 UNITS/ML 3 ML PEN SC SCH (13:00)
[2016-08-24] MEDS ORDERED: ALBUT/IPRATROP 3MG/0.5MG NEB 3 ML VIAL INH PRN (13:00)
--- NOTE | 2016-08-24 13:15 | History and Physical ---
History & Physical Date & Time of Service: August 24, 2016 at 13:06 Chief Complaint: Hyperglycemia Primary Care Physician: Vick Almanzar M.D. History of Present Illness Source: patient, family, clinic records, hospital records This patient is an 81-year-old male that presents the emergency Department via ALS with complaints of weakness and vomiting that started last night. Most of the history is taken from the patient's daughter as the patient is receiving a nebulizer treatment. According to the daughter, he has been progressively weak for about 1 week. There are no reported fever or chills. They do note that the patient had a mild cough starting 2 days ago. He currently reports feeling slightly short of breath. He denies any pain. No changes in bowel habits. The patient has a history of bladder cancer and underwent a radical cystectomy with [facility] at the end of May. He received his first chemotherapy treatment 2 weeks ago. 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 History of prostate cancer History of bladder cancer status post radical cystectomy Obstructive sleep apnea Status: Chronic Status post appendectomy Family History Diabetes mellitus Heart disease Hypertension Social History Smoking Status: Former Smoker Alcohol Use: socially Drug Use: none Marital Status: Housing status: lives with family Occupational Status: retired Immunizations History of Influenza Vaccine: Yes Influenza Vaccine Date: Feb 22, 2008 History of Tetanus Vaccine?: Yes History of Pneumococcal: Yes Pneumococcal Date: May 24, 2004 History of Hepatitis B Vaccine: Unknown Multi-Drug Resistant Organisms History of MDRO: No Allergies Coded Allergies: Iodine (Verified Adverse Reaction, Mild, GI SYMPTOMS, 06/03/16) Shellfish (Verified Adverse Reaction, Unknown, VOMITING, 06/03/16) Home Medications Scheduled Ascorbic Acid (Vitamin C), 2 TAB PO DAILY Aspirin (Aspirin Ec), 81 MG PO QAM Atorvastatin (Lipitor), 80 MG PO HS Felodipine (Felodipine ER), 10 MG PO QAM Finasteride (Proscar), 5 MG PO QAM Insulin Glargine (Lantus), UNITS SC DAILY Insulin Human Lispro (Insulin Humalog Pump ), 70-85 UNITS N/A DAILY Levofloxacin (Levaquin), 250 MG PO QPM Metoprolol Succ (Toprol Xl) (Toprol-Xl ), 100 MG PO QAM Metoprolol Succinate (Toprol Xl), 50 MG PO HS Multiple Vitamins W/ Minerals (Centrum Silver Ultra Mens), 1 TAB PO DAILY Tamsulosin Hcl (Flomax), 0.4 MG PO HS Scheduled PRN Diclofenac Sodium (Topical) (Voltaren 1% Top Gel), 1 DOSE TOP UD PRN for Pain Ipratropium-Albuterol (Combivent Respimat), 1 PUFF INH UD PRN for SOB/Wheezing Polyethylene Glycol 3350 (Miralax), 17 GM PO DAILY PRN for Constipation Review of Systems 10 system review performed and negative unless noted in HPI or below. These were reviewed with the daughter. Physical Exam Vital Signs Date Time Temp Pulse Resp B/P Pulse Ox O2 Delivery O2 Flow Rate FiO2 08/24/16 12:30 91 26 142/54 100 Nebulizer 7.0 08/24/16 12:12 94 30 151/53 97 Room Air 08/24/16 11:10 99 Room Air 08/24/16 11:07 36.5 101 20 160/57 98 Room Air 08/24/16 11:06 102 General Appearance: + mild distress (tachypneic) Head: normocephalic Eyes: EOMI ENT: + pertinent finding (oral mucosa very dry) Neck: no JVD Respiratory/Chest: + pertinent finding (tachypneic. Clear to auscultation bilaterally.) Cardiovascular: regular rate, rhythm Abdomen/GI: normal bowel sounds, non tender, soft, + pertinent finding ( ileostomy in place with clear yellow urine in bag) Extremities/Musculoskelatal: no calf tenderness, no pedal edema Neurologic/Psych: + pertinent finding (fatigue. Wakes up to answer questions appropriately. ) Skin: warm/dry Diagnostics Laboratory Results Results Past 24 Hours Test 08/24/16 10:50 08/24/16 11:05 08/24/16 11:10 08/24/16 12:53 Range/Units White Blood Count 23.00 4.8-10.8 K/uL Red Blood Count 4.15 4.7-6.1 M/uL Hemoglobin 11.5 14.0-18.0 g/dL Hematocrit 37.5 42-52 % Mean Corpuscular Volume 90.4 80-100 fL Mean Corpuscular Hemoglobin 27.7 25-34 pg Mean Corpuscular Hemoglobin Concent 30.7 32-36 g/dl Platelet Count 470 130-400 K/uL Mean Platelet Volume 10.4 7.4-10.4 fL Neutrophils (%) (Auto) 89.1 % Lymphocytes (%) (Auto) 3.5 % Monocytes (%) (Auto) 5.9 % Eosinophils (%) (Auto) 0.0 % Basophils (%) (Auto) 0.0 % Neutrophils # (Auto) 20.50 1.4-6.5 K/uL Lymphocytes # (Auto) 0.80 1.2-3.4 K/uL Monocytes # (Auto) 1.35 0.11-0.59 K/uL Eosinophils # (Auto) 0.00 0-0.5 K/uL Basophils # (Auto) 0.00 0-0.2 K/uL RDW Standard Deviation 54.8 36.4-46.3 fL RDW Coefficient of Variation 16.4 11.5-14.5 % Immature Granulocyte % (Auto) 1.5 % Immature Granulocyte # (Auto) 0.35 0.00-0.02 K/uL Hypersegmented Polys 1+ Toxic Vacuolation 1+ Sodium Level 130 136-145 mmol/L Potassium Level 6.1 3.5-5.1 mmol/L Chloride Level 92 98-107 mmol/L Carbon Dioxide Level 6 21-32 mmol/L Anion Gap 32.0 3-11 mmol/L Blood Urea Nitrogen 83 7-18 mg/dl Creatinine 3.10 0.60-1.40 mg/dl Est Creatinine Clear Calc Drug Dose 20.4 ml/min Estimated GFR () 20.5 Estimated GFR (Non- 17.6 BUN/Creatinine Ratio 26.7 10-20 Random Glucose 1094 70-99 mg/dl Calcium Level 8.8 8.5-10.1 mg/dl Magnesium Level 2.5 1.8-2.4 mg/dl Total Bilirubin 0.5 0.2-1 mg/dl Aspartate Amino Transf (AST/SGOT) 17 15-37 U/L Alanine Aminotransferase (ALT/SGPT) 29 12-78 U/L Alkaline Phosphatase 168 45-117 U/L Total Creatine Kinase 42 39-308 U/L Troponin I 0.019 0-0.045 ng/ml Total Protein 7.4 6.4-8.2 gm/dl Albumin 2.1 3.4-5.0 gm/dl Globulin 5.3 2.5-4.0 gm/dl Albumin/Globulin Ratio 0.4 0.9-2 Beta-Hydroxybutyric Acid 112.70 0.2-2.81 mg/dL Thyroid Stimulating Hormone (TSH) 3.010 0.300-4.500 uIu/ml Bedside Glucose > 600 > 600 70-99 mg/dl Microbiology Results 08/24/16 Blood Culture, Received Pending 08/24/16 Blood Culture, Received Pending Diagnostic Radiology CHEST ONE VIEW PORTABLE CLINICAL HISTORY: EVALUATE ALTERED MENTAL STATUS/WEAKNESS dyspnea COMPARISON STUDY: 05/23/2016 FINDINGS: Mild stable cardiomegaly. Subtle chronic interstitial change. No focal infiltrate. Diaphragms smooth. IMPRESSION: Chronic change. No acute process. Electronically signed by: Jose Pereyra M.D. 08/24/2016 11:21 AM Dictated Date/Time: 08/24/2016 11:20 AM The status of this report is Signed. Draft = Not yet reviewed or approved by Radiologist. Signed = Reviewed and approved by Radiologist. Impression Assessment and Plan 81-year-old male history of type 1 diabetes and bladder cancer status post radical cystectomy presented to the emergency department with weakness, vomiting and hyperglycemia DKA-->? infectious etiology. -Admit to ICU -turn off pump -Given additional NS 1 L bolus now -Then run NS @ 150 cc/hr -PRP, Mg, phos, VBG q 4 h -insulin gtt-severe stress -salgado culture Hyperkalemia -getting neb tx now -will likely respond to IVF HTN -continue felodipine 10 mg daily, Toprol XL 100 mg qam and 50 mg qpm Acute on chronic renal failure-likely volume depleted -IVF as noted above Hx CAD -continue ASA 81 mg daily, atorvastatin 80 mg daily DVT prophylaxis -Heparin 5000 u subQ BID -TEDS, SCDs CODE STATUS -LEVEL I FULL CODE i personally examined pt and verified all saldana points w A [facility] PAC. feeling better now that he's had some IV fluids. notes he's never seen his sugar that high before. no focal infectious s/s - wonders if related to immunotherapy. can't remember what the name of it is, notes it's immunotherapy for bladder cancer, starts w a "T" and gets at cancer center here. 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 (check CRP, repeat WBC w labs this evening to look for precipitous drop in white count that would favor demargination rather than infection) -for other possible infection sites: CXR clear and cough as only sign c/ w pneumonia (and cough ongoing for a while); blood cultures pending; no appearance of cellulitis -he's uncertain what his immunotherapy is; reviewing all records i have access to at this time, i can't find what's been given. on review of immunotherapy for bladder cancer, it appears Tecentriq most likely possibility and DKA is specifically listed as an ADR. will want to confirm what his immunotherapy truly is, but that makes this the most likely culprit. unclear if that means a change in therapy will be warranted or just aggressive hydration and DM management during treatment, given his overall situation. will need input from heme/onc (outpatient unless in hospital consult ends up being required) for further thoughts in this regard - especially if no infection is unearthed. otherwise as above and as per Dr Kramer Level of Care Critical Care Resuscitation Status FULL RESUSCITATION VTE Prophylaxis VTE Risk Assessment Done? Y/N: Yes Risk Level: Moderate Given or contraindicated: Unfractionated heparin SQ, T.E.D. Stockings, SCD's
[2016-08-24] MEDS: SODIUM CHLORIDE 0.9% 1000ML 1,000 ML IV SCH ×2 (14:14→23:00)
[2016-08-24 14:42] LABS: BUN/CREATININE RATIO 30.8 (10-20); CREATININE 2.8 mg/dl (0.60-1.40); PHOSPHORUS 6.5 mg/dl (2.5-4.9); POTASSIUM 5.2 mmol/L (3.5-5.1)
[2016-08-24] MEDS ORDERED: SODIUM CHLORIDE 0.9% 1000ML 1,000 ML IV SCH (14:45)
[2016-08-24 14:52] LABS: CALCIUM 7.8 mg/dl (8.5-10.1)
[2016-08-24] MEDS ORDERED: PANTOprazole INJ 40 MG in SYRINGE 0 ML IV ONE (15:00)
[2016-08-24 15:10] LABS: BETA-HYDROXYBUTYRATE 81.1 mg/dL (0.2-2.81)
[2016-08-24] MEDS ORDERED: NURSING VERBAL MED ORDER ONE ×2 (15:45→17:30)
[2016-08-24 15:51] LABS: URINE APPEARANCE CLEAR (CLEAR); URINE BILIRUBIN NEG (NEG); URINE COLOR YELLOW; URINE EPITHELIAL CELL AUTO 0-5 /lpf (0-5); URINE NITRITE NEG (NEG); URINE PH 5.5 (4.5-7.5); UROBILINOGEN NEG (NEG); ZZURINE CULT IF INDIC CATH YES
[2016-08-24 15:56] LABS: MANUAL MICROSCOPIC REQUIRED? NO; REVIEW REQ? NO
[2016-08-24] MEDS: INSULIN ASPART 100 UNITS/ML 3 ML PEN SC SCH ×2 (16:38→20:00)
[2016-08-24 16:40] LABS: BETA-HYDROXYBUTYRATE 43.88 mg/dL (0.2-2.81)
[2016-08-24] MEDS ORDERED: LEVOFLOXACIN / D5W 500 MG in PREMIXED IN D5W 100 ML IV ONE (18:00)
[2016-08-24] MEDS: GUAIFENESIN SUGAR FREE 100 MG/5 ML UDC PO PRN (18:27)
[2016-08-24 18:36] LABS: C-REACTIVE PROTEIN 24.1 mg/dl (0-0.29)
[2016-08-24 18:54] LABS: BETA-HYDROXYBUTYRATE 25.7 mg/dL (0.2-2.81)
[2016-08-24] MEDS: ATORVASTATIN 40 MG TAB PO SCH (20:00)
[2016-08-24] MEDS: METOPROLOL SUCC 50MG EXT REL TAB PO SCH (20:00)
[2016-08-24 20:27] LABS: BASO % 0.1 %; BASO ABS # 0.01 K/uL (0-0.2); COMPLETE YES; EOS % 0.2 %; HEMATOCRIT 28.7 % (42-52); IG% 0.7 %; LYMPH % 6.4 %; LYMPH ABS # 0.94 K/uL (1.2-3.4); MEAN CELL VOLUME 86.4 fL (80-100); MEAN CORPUSCULAR HEMOGLOBIN 28.6 pg (25-34); MEAN CORPUSCULAR HGB CONC 33.1 g/dl (32-36); MEAN PLATELET VOLUME 10.2 fL (7.4-10.4); MONO % 7.7 %; NEUT % 84.9 %; PLATELET COUNT 296 K/uL (130-400); RED BLOOD COUNT 3.32 M/uL (4.7-6.1); WHITE BLOOD COUNT 14.68 K/uL (4.8-10.8)
[2016-08-24 20:54] LABS: BUN/CREATININE RATIO 30.8 (10-20); CALCIUM 7.1 mg/dl (8.5-10.1); CREATININE 2.6 mg/dl (0.60-1.40)
[2016-08-24 20:55] LABS: POTASSIUM 4.2 mmol/L (3.5-5.1)
[2016-08-24 21:06] LABS: BETA-HYDROXYBUTYRATE 6.03 mg/dL (0.2-2.81)
[2016-08-25] VITALS (14 sets, daily range): BP systolic 123–154; BP diastolic 49–80; PULSE 73–96; TEMP 36.5–36.8; O2SAT 90–96
[2016-08-25 00:38] LABS: BUN/CREATININE RATIO 31.8 (10-20); CALCIUM 7.3 mg/dl (8.5-10.1); CREATININE 2.5 mg/dl (0.60-1.40); POTASSIUM 3.9 mmol/L (3.5-5.1)
[2016-08-25 00:49] LABS: BETA-HYDROXYBUTYRATE 0.59 mg/dL (0.2-2.81)
[2016-08-25] MEDS: SODIUM CHLORIDE 0.9% 1000ML 1,000 ML IV SCH (02:40)
[2016-08-25] MEDS ORDERED: D5W AND 1/2NSS 1,000 ML IV SCH (03:45)
[2016-08-25] MEDS ORDERED: NURSING VERBAL MED ORDER ONE (03:45)
[2016-08-25 04:21] LABS: BUN/CREATININE RATIO 32.8 (10-20); CALCIUM 7.5 mg/dl (8.5-10.1); CREATININE 2.3 mg/dl (0.60-1.40); POTASSIUM 3.8 mmol/L (3.5-5.1)
--- NOTE | 2016-08-25 07:35 | CRITICAL CARE CONSULTATION ---
DATE OF CONSULTATION: 08/24/2016 CHIEF COMPLAINT: Weakness. HISTORY OF PRESENT ILLNESS: The patient is a very nice 81-year-old gentleman with a history of bladder cancer who underwent TURBT in 05/2016. He was found to have bladder cancer and proceeded to radical cystectomy with right lower quadrant loop ileostomy at [facility] on 07/05/2016. He did well postop and has been seeing Dr. Chinchilla for immunotherapy, his first dose was given approximately 17 days ago. Neither he nor his family can tell me what the medication is, but he does say he is to receive it every 3 weeks. Over the past 5 days, he has felt weak and has had some mild shortness of breath. He has been coughing for 7 days, nonproductive. Last night, he had nausea and vomited several times. He also vomited his breakfast this morning. He is a type 1 diabetic since the and manages his blood sugars aggressively using an insulin pump. He denies any problems with the pump, although his family is concerned that he may have had some trouble adjusting it. About a week ago, he gave himself a bolus which was much larger than he had planned and had to set his alarm every hour to check his blood sugar and give himself orange juice. He complains of thirst and feels like he has been urinating excessively. His vomitus may have been black in color at one point. He denies hematemesis, melena, bright red blood per rectum or abdominal pain. He denies fevers but has felt chilled. He denies chest pain and presyncopal symptoms. He was seen in the Emergency Department and found to have a blood sugar greater than 1000. He was given 1 liter normal saline bolus then 200 mL per hour. He was also given 10 units of IV regular insulin as a bolus and placed on an insulin infusion. He received one DuoNeb as well. He was then transferred to the intensive care unit. PAST MEDICAL HISTORY: Bladder cancer. Presently, receiving immunotherapy, status post radical cystectomy with loop ileostomy, prostate cancer status post brachytherapy, bronchitis, diabetes mellitus type 1, benign prostatic hypertrophy diagnosed in year 1999, remote myocardial infarction and bare-metal stents around 2000, hypertension, chronic kidney disease, obstructive sleep apnea for which he wore CPAP until his insurance changed and he is waiting for another sleep study. He does not have a CPAP device. COPD by CT findings recently. PAST SURGICAL HISTORY: Status post appendectomy, left hip replacement, cystectomy, TURBT, bilateral cataract extractions, cardiac catheterization. ALLERGIES: TO IODINE AND SHELLFISH. OUTPATIENT MEDICATIONS: Acetaminophen, aspirin, Lipitor, felodipine, Humalog, Toprol-XL. SOCIAL HISTORY: He smoked for about 20 years and quit in the 1980s. He lives alone with family support. He does not drink any alcohol. FAMILY HISTORY: Significant for diabetes mellitus, heart disease, hypertension. REVIEW OF SYSTEMS: He reports a "sore" on his buttocks that he has had since his hospitalization at [facility]. He denies focal weakness, numbness or tingling. He denies diarrhea, falls, rashes. Additional review of systems in a 12-point system are either negative or noncontributory or as presented in the history of present illness. PHYSICAL EXAMINATION: GENERAL: This is a very nice elderly man sitting in bed, mildly tachypneic. VITAL SIGNS: Are as follows: Temperature is pending, heart rate 93, respiratory rate 18, blood pressure 120/80, oxygen saturation 95% on room air. HEENT: Pupils are about 2 mm and difficult to tell if they react. No scleral icterus. Oral mucosa is very dry. Posterior pharynx is mildly erythematous. NECK: No adenopathy, veins are flat. LUNGS: Clear to auscultation bilaterally. No rales, rhonchi or wheezes. HEART: Regular rate and rhythm. No murmurs. ABDOMEN: Soft, nondistended, nontender. There is a right lower quadrant ileostomy with some fibrinous exudate at the perimeter of the stoma, clear yellow urine is in the bag. EXTREMITIES: Warm. No edema. SKIN: Very dry. LABORATORY DATA: White blood cell count 23, hemoglobin 11.5, hematocrit 37.5, platelets 470. Sodium 131, potassium 6, chloride 92, CO2 6, BUN 83, creatinine 3.1. Blood sugar 1094. Magnesium 2.5, total bilirubin 0.5, AST 17, ALT 29, alkaline phosphatase 160, total CPK 42. Troponin 0.019, albumin 2.1. TSH 3. Beta-hydroxybutyrate 112.7. Urine analysis was canceled. Blood cultures are pending. IMAGING: Portable chest x-ray shows no acute infiltrate, mild cardiomegaly, subtle chronic interstitial changes according to the report. INPATIENT MEDICATIONS: Acetaminophen, DuoNeb p.r.n., aspirin 81 mg daily, Lipitor 80 mg at bedtime, felodipine 10 mg daily, NovoLog sliding scale insulin infusion, Toprol-XL 100 mg in the morning and 50 mg in the evening., Morphine p.r.n., Protonix 40 mg IV daily, normal saline at 200 mL per hour. IMPRESSION: 1. Diabetic ketoacidosis, unclear if his pump is not working properly or if this is related to infection or his immunotherapy. Blood cultures have been drawn and no focal infection is apparent yet. Urinalysis is pending. 2. Acute kidney injury secondary to number 1. 3. Cough, nonproductive. No infiltrate on chest x-ray. 4. Leukocytosis. 5. Bladder cancer status post cystectomy and loop ileostomy. 6. Pseudohyponatremia and hyperkalemia, improving. 7. History of hypertension. 8. History of obstructive sleep apnea. 9. History of coronary artery disease. EKG was reviewed and shows normal sinus rhythm with prolonged QT interval. PLAN: 1. Continue aggressive volume resuscitation. 2. Continue insulin infusion. 3. Follow PRP q. 4 hours. 4. Add dextrose to fluids once the blood sugar is at 250 or below. 5. Follow up U/A and cultures. 6. Robitussin for cough. 7. Follow H\\T\\H and continue Protonix. 8. SCDs for DVT prophylaxis, begin pharmacological prophylaxis once it is clear that he is not GI bleeding. 9. His insulin pump will need to be checked to ensure it is functioning properly. 10. I will try to find out which immunotherapy medication he is taking. I discussed his care in detail with both the patient and the family. Questions were answered and support was provided. Critical care time 60 minutes. [facility]
[2016-08-25] MEDS: INSULIN ASPART 100 UNITS/ML 3 ML PEN SC SCH ×4 (08:00→21:18)
[2016-08-25 08:16] LABS: HEMATOCRIT 30.3 % (42-52); MEAN CELL VOLUME 83.7 fL (80-100); MEAN CORPUSCULAR HEMOGLOBIN 27.3 pg (25-34); MEAN CORPUSCULAR HGB CONC 32.7 g/dl (32-36); MEAN PLATELET VOLUME 9.6 fL (7.4-10.4); PLATELET COUNT 294 K/uL (130-400); RED BLOOD COUNT 3.62 M/uL (4.7-6.1); WHITE BLOOD COUNT 16.01 K/uL (4.8-10.8)
[2016-08-25] MEDS ORDERED: PHARMACY GLYCEMIC MGMT CONSULT PRN (08:16)
[2016-08-25] MEDS: INSULIN REGULAR 250 UNITS in SODIUM CHLORIDE 0.9% 250ML 250 ML IV SCH ×2 (08:31→12:40)
[2016-08-25] MEDS: FELODIPINE 5 MG TABCR PO SCH (08:33)
[2016-08-25] MEDS: GUAIFENESIN SUGAR FREE 100 MG/5 ML UDC PO PRN ×2 (08:33→16:25)
[2016-08-25] MEDS: ASPIRIN 81 MG ECTAB PO SCH (08:33)
[2016-08-25] MEDS: METOPROLOL SUCC 50MG EXT REL TAB PO SCH ×2 (08:34→21:15)
[2016-08-25 08:39] LABS: BUN/CREATININE RATIO 36.4 (10-20); CREATININE 2.1 mg/dl (0.60-1.40); MAGNESIUM 1.7 mg/dl (1.8-2.4); PHOSPHORUS 2.6 mg/dl (2.5-4.9); POTASSIUM 3.5 mmol/L (3.5-5.1)
[2016-08-25 08:49] LABS: CALCIUM 7.5 mg/dl (8.5-10.1)
[2016-08-25 09:31] LABS: BASO % 0.1 %; BASO ABS # 0.01 K/uL (0-0.2); COMPLETE YES; EOS % 0.6 %; IG% 0.4 %; LYMPH % 5.1 %; LYMPH ABS # 0.82 K/uL (1.2-3.4); MONO % 6.2 %; NEUT % 87.6 %
[2016-08-25] MEDS ORDERED: INSULIN GLARGINE SOLOSTAR 100 UNITS/ML 3 ML PEN SC ONE (09:45)
[2016-08-25] MEDS: D5W AND 1/2NSS + 20MEQ KCL 1,000 ML IV SCH ×3 (10:13→23:00)
[2016-08-25] MEDS: MAGNESIUM SULFATE 1GM / D5W 1 GM in PREMIXED IN D5W 100 ML IV SCH ×2 (10:13→11:29)
[2016-08-25] MEDS: PANTOprazole INJ 40 MG in SYRINGE 0 ML IV SCH (10:13)
--- NOTE | 2016-08-25 10:19 | Pharmacy Progress Note ---
Glycemic Control Intl Consult Date of Service August 25, 2016. Scope Glycemic Pharmacist consulted by Dr Kramer on 08/25/16 for glycemic control and to write orders per [facility] inpatient glycemic control protocol Objective Weight (Kilograms): 91.500 Accuchecks BSG (last 24hrs): Test 08/24/16 10:50 08/24/16 11:10 08/24/16 12:53 08/24/16 13:36 Random Glucose 1094 mg/dl (70-99) Bedside Glucose > 600 mg/dl (70-99) > 600 mg/dl (70-99) > 600 mg/dl (70-99) Test 08/24/16 14:05 08/24/16 15:58 08/24/16 17:51 08/24/16 19:49 Random Glucose 922 mg/dl (70-99) 836 mg/dl (70-99) 663 mg/dl (70-99) Bedside Glucose 547 mg/dl (70-99) Test 08/24/16 20:05 08/24/16 21:04 08/24/16 22:19 08/24/16 23:49 Random Glucose 621 mg/dl (70-99) Bedside Glucose 485 mg/dl (70-99) 452 mg/dl (70-99) 385 mg/dl (70-99) Test 08/24/16 23:59 08/25/16 01:17 08/25/16 02:21 08/25/16 03:23 Random Glucose 385 mg/dl (70-99) Bedside Glucose 311 mg/dl (70-99) 264 mg/dl (70-99) 204 mg/dl (70-99) Test 08/25/16 03:50 08/25/16 04:27 08/25/16 05:42 08/25/16 07:06 Random Glucose 197 mg/dl (70-99) Bedside Glucose 177 mg/dl (70-99) 178 mg/dl (70-99) 183 mg/dl (70-99) Test 08/25/16 08:05 08/25/16 08:22 08/25/16 09:20 Random Glucose 174 mg/dl (70-99) Bedside Glucose 179 mg/dl (70-99) 167 mg/dl (70-99) Laboratory Data (last 24hrs) Test 08/24/16 10:50 08/24/16 14:05 08/24/16 20:05 08/24/16 23:59 Anion Gap 32.0 mmol/L 26.0 mmol/L 12.0 mmol/L 10.0 mmol/L BUN/Creatinine Ratio 26.7 30.8 30.8 31.8 Blood Urea Nitrogen 83 mg/dl 86 mg/dl 80 mg/dl 79 mg/dl Creatinine 3.10 mg/dl 2.80 mg/dl 2.60 mg/dl 2.50 mg/dl Potassium Level 6.1 mmol/L 5.2 mmol/L 4.2 mmol/L 3.9 mmol/L Sodium Level 130 mmol/L 131 mmol/L 135 mmol/L 140 mmol/L White Blood Count 23.00 K/uL 14.68 K/uL Red Blood Count 4.15 M/uL 3.32 M/uL Hemoglobin 11.5 g/dL 9.5 g/dL Hematocrit 37.5 % 28.7 % Mean Corpuscular Volume 90.4 fL 86.4 fL Mean Corpuscular Hemoglobin 27.7 pg 28.6 pg Mean Corpuscular Hemoglobin Concent 30.7 g/dl 33.1 g/dl Platelet Count 470 K/uL 296 K/uL Mean Platelet Volume 10.4 fL 10.2 fL Neutrophils (%) (Auto) 89.1 % 84.9 % Lymphocytes (%) (Auto) 3.5 % 6.4 % Monocytes (%) (Auto) 5.9 % 7.7 % Eosinophils (%) (Auto) 0.0 % 0.2 % Basophils (%) (Auto) 0.0 % 0.1 % Neutrophils # (Auto) 20.50 K/uL 12.47 K/uL Lymphocytes # (Auto) 0.80 K/uL 0.94 K/uL Monocytes # (Auto) 1.35 K/uL 1.13 K/uL Eosinophils # (Auto) 0.00 K/uL 0.03 K/uL Basophils # (Auto) 0.00 K/uL 0.01 K/uL Test 08/25/16 03:50 08/25/16 08:05 Anion Gap 11.0 mmol/L 10.0 mmol/L BUN/Creatinine Ratio 32.8 36.4 Blood Urea Nitrogen 75 mg/dl 76 mg/dl Creatinine 2.30 mg/dl 2.10 mg/dl Potassium Level 3.8 mmol/L 3.5 mmol/L Sodium Level 143 mmol/L 141 mmol/L White Blood Count 16.01 K/uL Red Blood Count 3.62 M/uL Hemoglobin 9.9 g/dL Hematocrit 30.3 % Mean Corpuscular Volume 83.7 fL Mean Corpuscular Hemoglobin 27.3 pg Mean Corpuscular Hemoglobin Concent 32.7 g/dl Platelet Count 294 K/uL Mean Platelet Volume 9.6 fL Neutrophils (%) (Auto) 87.6 % Lymphocytes (%) (Auto) 5.1 % Monocytes (%) (Auto) 6.2 % Eosinophils (%) (Auto) 0.6 % Basophils (%) (Auto) 0.1 % Neutrophils # (Auto) 14.03 K/uL Lymphocytes # (Auto) 0.82 K/uL Monocytes # (Auto) 1.00 K/uL Eosinophils # (Auto) 0.09 K/uL Basophils # (Auto) 0.01 K/uL Recent Pertinent Medications Outpatient Anti-diabetic Regimen: * Humalog insulin pump - [employer] (I confirmed the settings myself through review of the pump) * Basal 35.6 units/day: 12 am - 1.2 u/hr, 4 am - 1.5 u/hr, 4 pm - 1.6 u/hr * Goal 100-150 * CF 25 * CR 7 w/ breakfast, 5 w/ lunch, 5 w/ dinner * A1c = 6.9 % 07/24/16 The patient is currently receiving: * Insulin infusion at 3.4 units/hr Risk Factors for Insulin Resistance: * Infection: on Levaquin for possible UTI * IVF: D51/2NS @ 150 cc/hr * Diet: NPO Assessment & Plan ASSESSMENT: 08/25/16 * Mr. Callejas is an 81 y/o type 1 diabetic, well known to the pharmacy glycemic service * He was admitted yesterday for DKA and started on an insulin infusion * He manages his diabetes with an insulin pump (has been using one for quite some time), A1c from a month ago shows great control; however, patient reports that he feels his pump has not been functioning properly lately. He thinks there was a change since his surgery ~2 months ago at [facility]. * Upon review of his pump, I could see that he has been bolusing himself. BSGs over the past week have mostly been in the 400-500 range, which could be due to his current infection. He showed me a screen that comes up on the pump (looks like it's related to a CGM) that never came up before. I told him we could probably call [employer] tomorrow to sort things out with that. * For now, I told him the best plan would be to utilize Lantus + Novolog until we can get his pump straightened out. Both Dr. Kramer and the patient are in agreement with this. He meets criteria to transition to SQ at this point. Insulin drip rates (while on continuous dextrose) are providing ~80 u/day. His basal on his pump provides ~35 units/day. Will plan to give a one time dose of 40 units of Lantus and place him on q4h accuchecks to provide additional coverage if needed. I would anticipate that he needs more insulin with the current infection. * In preparation for discharge: * Will see if the in service educator can look at his pump further tomorrow and call [employer] to ask about the screen that keeps coming up for the patient * Depending on his insulin requirements as an inpatient, his pump settings may need adjusted, but I do wonder if he's just having issues using the pump appropriately? Dr. Kramer noted that family members were thinking that could be possible. PLAN FOR INPATIENT GLYCEMIC CONTROL: * Lantus 40 units x 1 now * D/C insulin drip 6 hours after Lantus dose given, or sooner if directed by insulin infusion calculator * Tighten goal range for insulin drip to 150-250 * Novolog q4h to start after drip d/c'd * Goal 140-180 * CF 20 * CR 1 unit per 5 gm CHO * Will need further Lantus orders tomorrow depending on how much correctional insulin he requires * Please note that the plan above was derived based on current level of insulin resistance and hospital stress. These recommendations are appropriate for inpatient admission only. Plan of care upon discharge will need to be reassessed to avoid potential outpatient hypo/hyperglycemia. Thank you.
--- NOTE | 2016-08-25 11:36 | Hospitalist Progress Note ---
Hospitalist Progress Note Date of Service August 25, 2016. Subjective Pt evaluation today including: conversation w/ patient, conversation w/ family , physical exam, chart review, lab review, conversation w/ dietitian consultant, review of inpatient medication list Patient reports feeling much better today. He currently denies any pain. No nausea. He denies any chest pain or shortness of breath. He does have a mild nonproductive cough. Denies any fever or chills. Additional Comments: 6 system review negative. Please see pertinent positives in the history of present illness section. Objective Vital Signs Date Time Temp Pulse Resp B/P Pulse Ox O2 Delivery O2 Flow Rate FiO2 08/25/16 10:00 87 27 123/72 90 Nasal Cannula 3.0 08/25/16 08:00 Nasal Cannula 3.0 08/25/16 08:00 36.8 91 23 150/55 96 Nasal Cannula 3.0 08/25/16 06:01 90 26 138/53 94 Nasal Cannula 2.0 08/25/16 05:01 87 23 133/53 94 Nasal Cannula 2.0 08/25/16 04:01 36.6 86 23 133/51 95 Nasal Cannula 2.0 08/25/16 04:00 Nasal Cannula 2.0 08/25/16 03:01 88 24 141/54 94 Nasal Cannula 2.0 08/25/16 02:01 86 25 137/51 94 Nasal Cannula 2.0 08/25/16 01:01 86 24 135/49 94 Nasal Cannula 2.0 08/25/16 00:01 36.6 92 28 138/61 96 Nasal Cannula 2.0 08/25/16 00:01 Nasal Cannula 2.0 08/24/16 23:01 84 25 124/50 94 Nasal Cannula 2.0 08/24/16 22:01 88 21 118/46 96 Nasal Cannula 2.0 08/24/16 21:01 83 24 123/49 94 Nasal Cannula 2.0 08/24/16 20:06 36.5 82 28 112/48 94 Nasal Cannula 2.0 08/24/16 20:00 Nasal Cannula 2.0 08/24/16 19:01 81 18 116/50 95 Nasal Cannula 2.0 08/24/16 18:00 87 24 130/53 95 Nasal Cannula 2.0 08/24/16 16:00 36.8 91 24 127/51 95 Nasal Cannula 2.0 08/24/16 16:00 94 Room Air 08/24/16 14:45 91 25 129/51 96 08/24/16 13:30 93 18 120/84 95 08/24/16 13:07 93 08/24/16 13:05 Room Air 08/24/16 13:04 94 18 120/84 95 Room Air 08/24/16 12:30 91 26 142/54 100 Nebulizer 7.0 08/24/16 12:12 94 30 151/53 97 Room Air Physical Exam General Appearance: no apparent distress Eyes: EOMI Neck: thyroid normal Respiratory/Chest: lungs clear Cardiovascular: regular rate, rhythm Abdomen: normal bowel sounds, non tender, soft Extremities: non-tender, no pedal edema Neurologic/Psychiatric: no motor/sensory deficits, oriented x 3 Skin: warm/dry Laboratory Results 08/25/16 08:05 Red Blood Count 3.62, Mean Corpuscular Volume 83.7, Mean Corpuscular Hemoglobin 27.3, Mean Corpuscular Hemoglobin Concent 32.7, Mean Platelet Volume 9.6, Neutrophils (%) (Auto) 87.6, Lymphocytes (%) (Auto) 5.1, Monocytes (%) (Auto) 6.2, Eosinophils (%) (Auto) 0.6, Basophils (%) (Auto) 0.1, Neutrophils # (Auto) 14.03, Lymphocytes # (Auto) 0.82, Monocytes # (Auto) 1.00, Eosinophils # (Auto) 0.09, Basophils # (Auto) 0.01 08/25/16 08:05 Test 08/24/16 14:05 08/24/16 15:00 08/24/16 17:51 08/24/16 23:59 Venous Blood pH 7.18 (7.36-7.41) Urine Color YELLOW Urine Appearance CLEAR (CLEAR) Urine pH 5.5 (4.5-7.5) Urine Specific Dewitt 1.020 (1.000-1.030) Urine Protein 2+ (NEG) Urine Glucose (UA) 3+ (NEG) Urine Ketones 2+ (NEG) Urine Occult Blood 2+ (NEG) Urine Nitrite NEG (NEG) Urine Bilirubin NEG (NEG) Urine Urobilinogen NEG (NEG) Urine Leukocyte Esterase MODERATE (NEG) Urine WBC (Auto) >30 /hpf (0-5) Urine RBC (Auto) 0-4 /hpf (0-4) Urine Hyaline Casts (Auto) 1-5 /lpf (0-5) Urine Epithelial Cells (Auto) 0-5 /lpf (0-5) Urine Bacteria (Auto) 1+ (NEG) C-Reactive Protein 24.10 mg/dl (0-0.29) Beta-Hydroxybutyric Acid 0.59 mg/dL (0.2-2.81) Test 08/25/16 03:50 08/25/16 08:05 08/25/16 10:04 Procalcitonin 3.58 ng/ml (0-0.5) White Blood Count 16.01 K/uL (4.8-10.8) Red Blood Count 3.62 M/uL (4.7-6.1) Hemoglobin 9.9 g/dL (14.0-18.0) Hematocrit 30.3 % (42-52) Mean Corpuscular Volume 83.7 fL (80-100) Mean Corpuscular Hemoglobin 27.3 pg (25-34) Mean Corpuscular Hemoglobin Concent 32.7 g/dl (32-36) Platelet Count 294 K/uL (130-400) Mean Platelet Volume 9.6 fL (7.4-10.4) Neutrophils (%) (Auto) 87.6 % Lymphocytes (%) (Auto) 5.1 % Monocytes (%) (Auto) 6.2 % Eosinophils (%) (Auto) 0.6 % Basophils (%) (Auto) 0.1 % Neutrophils # (Auto) 14.03 K/uL (1.4-6.5) Lymphocytes # (Auto) 0.82 K/uL (1.2-3.4) Monocytes # (Auto) 1.00 K/uL (0.11-0.59) Eosinophils # (Auto) 0.09 K/uL (0-0.5) Basophils # (Auto) 0.01 K/uL (0-0.2) RDW Standard Deviation 48.8 fL (36.4-46.3) RDW Coefficient of Variation 15.7 % (11.5-14.5) Immature Granulocyte % (Auto) 0.4 % Immature Granulocyte # (Auto) 0.06 K/uL (0.00-0.02) Anion Gap 10.0 mmol/L (3-11) Est Creatinine Clear Calc Drug Dose 30.1 ml/min Estimated GFR () 32.7 Estimated GFR (Non- 28.3 BUN/Creatinine Ratio 36.4 (10-20) Calcium Level 7.5 mg/dl (8.5-10.1) Phosphorus Level 2.6 mg/dl (2.5-4.9) Magnesium Level 1.7 mg/dl (1.8-2.4) Bedside Glucose 167 mg/dl (70-99) Date/Time Source Procedure Growth Status 08/24/16 14:55 Nasal MRSA DNA Surveillance Screen - Final Specimen Negative for MRSA by DNA Probe Complete 08/24/16 15:00 Urine,Catheterized Urine Culture - Final GREATER THAN THREE TYPES OF ORGANISMS... Complete Last 24 Hours Test 08/24/16 12:53 08/24/16 13:36 08/24/16 14:05 08/24/16 15:00 Bedside Glucose > 600 mg/dl > 600 mg/dl Venous Blood pH 7.18 Sodium Level 131 mmol/L Potassium Level 5.2 mmol/L Chloride Level 97 mmol/L Carbon Dioxide Level 8 mmol/L Anion Gap 26.0 mmol/L Blood Urea Nitrogen 86 mg/dl Creatinine 2.80 mg/dl Est Creatinine Clear Calc Drug Dose 22.6 ml/min Estimated GFR () 23.1 Estimated GFR (Non- 20.0 BUN/Creatinine Ratio 30.8 Random Glucose 922 mg/dl Calcium Level 7.8 mg/dl Phosphorus Level 6.5 mg/dl Beta-Hydroxybutyric Acid 81.10 mg/dL Urine Color YELLOW Urine Appearance CLEAR Urine pH 5.5 Urine Specific Dewitt 1.020 Urine Protein 2+ Urine Glucose (UA) 3+ Urine Ketones 2+ Urine Occult Blood 2+ Urine Nitrite NEG Urine Bilirubin NEG Urine Urobilinogen NEG Urine Leukocyte Esterase MODERATE Urine WBC (Auto) >30 /hpf Urine RBC (Auto) 0-4 /hpf Urine Hyaline Casts (Auto) 1-5 /lpf Urine Epithelial Cells (Auto) 0-5 /lpf Urine Bacteria (Auto) 1+ Test 08/24/16 15:58 08/24/16 17:51 08/24/16 19:49 08/24/16 20:05 Random Glucose 836 mg/dl 663 mg/dl 621 mg/dl Beta-Hydroxybutyric Acid 43.88 mg/dL 25.70 mg/dL 6.03 mg/dL C-Reactive Protein 24.10 mg/dl Bedside Glucose 547 mg/dl White Blood Count 14.68 K/uL Red Blood Count 3.32 M/uL Hemoglobin 9.5 g/dL Hematocrit 28.7 % Mean Corpuscular Volume 86.4 fL Mean Corpuscular Hemoglobin 28.6 pg Mean Corpuscular Hemoglobin Concent 33.1 g/dl Platelet Count 296 K/uL Mean Platelet Volume 10.2 fL Neutrophils (%) (Auto) 84.9 % Lymphocytes (%) (Auto) 6.4 % Monocytes (%) (Auto) 7.7 % Eosinophils (%) (Auto) 0.2 % Basophils (%) (Auto) 0.1 % Neutrophils # (Auto) 12.47 K/uL Lymphocytes # (Auto) 0.94 K/uL Monocytes # (Auto) 1.13 K/uL Eosinophils # (Auto) 0.03 K/uL Basophils # (Auto) 0.01 K/uL RDW Standard Deviation 51.3 fL RDW Coefficient of Variation 15.8 % Immature Granulocyte % (Auto) 0.7 % Immature Granulocyte # (Auto) 0.10 K/uL Sodium Level 135 mmol/L Potassium Level 4.2 mmol/L Chloride Level 105 mmol/L Carbon Dioxide Level 18 mmol/L Anion Gap 12.0 mmol/L Blood Urea Nitrogen 80 mg/dl Creatinine 2.60 mg/dl Est Creatinine Clear Calc Drug Dose 24.3 ml/min Estimated GFR () 25.3 Estimated GFR (Non- 21.8 BUN/Creatinine Ratio 30.8 Calcium Level 7.1 mg/dl Procalcitonin 3.36 ng/ml Test 08/24/16 21:04 08/24/16 22:19 08/24/16 23:49 08/24/16 23:59 Bedside Glucose 485 mg/dl 452 mg/dl 385 mg/dl Sodium Level 140 mmol/L Potassium Level 3.9 mmol/L Chloride Level 108 mmol/L Carbon Dioxide Level 22 mmol/L Anion Gap 10.0 mmol/L Blood Urea Nitrogen 79 mg/dl Creatinine 2.50 mg/dl Est Creatinine Clear Calc Drug Dose 25.3 ml/min Estimated GFR () 26.5 Estimated GFR (Non- 22.9 BUN/Creatinine Ratio 31.8 Random Glucose 385 mg/dl Calcium Level 7.3 mg/dl Beta-Hydroxybutyric Acid 0.59 mg/dL Test 08/25/16 01:17 08/25/16 02:21 08/25/16 03:23 08/25/16 03:50 Bedside Glucose 311 mg/dl 264 mg/dl 204 mg/dl Sodium Level 143 mmol/L Potassium Level 3.8 mmol/L Chloride Level 112 mmol/L Carbon Dioxide Level 20 mmol/L Anion Gap 11.0 mmol/L Blood Urea Nitrogen 75 mg/dl Creatinine 2.30 mg/dl Est Creatinine Clear Calc Drug Dose 27.5 ml/min Estimated GFR () 29.3 Estimated GFR (Non- 25.3 BUN/Creatinine Ratio 32.8 Random Glucose 197 mg/dl Calcium Level 7.5 mg/dl Phosphorus Level 3.0 mg/dl Procalcitonin 3.58 ng/ml Test 08/25/16 04:27 08/25/16 05:42 08/25/16 07:06 08/25/16 08:05 Bedside Glucose 177 mg/dl 178 mg/dl 183 mg/dl White Blood Count 16.01 K/uL Red Blood Count 3.62 M/uL Hemoglobin 9.9 g/dL Hematocrit 30.3 % Mean Corpuscular Volume 83.7 fL Mean Corpuscular Hemoglobin 27.3 pg Mean Corpuscular Hemoglobin Concent 32.7 g/dl Platelet Count 294 K/uL Mean Platelet Volume 9.6 fL Neutrophils (%) (Auto) 87.6 % Lymphocytes (%) (Auto) 5.1 % Monocytes (%) (Auto) 6.2 % Eosinophils (%) (Auto) 0.6 % Basophils (%) (Auto) 0.1 % Neutrophils # (Auto) 14.03 K/uL Lymphocytes # (Auto) 0.82 K/uL Monocytes # (Auto) 1.00 K/uL Eosinophils # (Auto) 0.09 K/uL Basophils # (Auto) 0.01 K/uL RDW Standard Deviation 48.8 fL RDW Coefficient of Variation 15.7 % Immature Granulocyte % (Auto) 0.4 % Immature Granulocyte # (Auto) 0.06 K/uL Sodium Level 141 mmol/L Potassium Level 3.5 mmol/L Chloride Level 112 mmol/L Carbon Dioxide Level 19 mmol/L Anion Gap 10.0 mmol/L Blood Urea Nitrogen 76 mg/dl Creatinine 2.10 mg/dl Est Creatinine Clear Calc Drug Dose 30.1 ml/min Estimated GFR () 32.7 Estimated GFR (Non- 28.3 BUN/Creatinine Ratio 36.4 Random Glucose 174 mg/dl Calcium Level 7.5 mg/dl Phosphorus Level 2.6 mg/dl Magnesium Level 1.7 mg/dl Test 08/25/16 08:22 08/25/16 09:20 08/25/16 10:04 Bedside Glucose 179 mg/dl 167 mg/dl 167 mg/dl Assessment and Plan 81-year-old male history of type 1 diabetes and bladder cancer status post radical cystectomy presented to the emergency department with weakness, vomiting and hyperglycemia DKA-->? secondary to immunomodulator for hx of bladder CA s/p cystectomy in june vs infectious source such as UTI -awaiting urine and bl cx -on Levaquin 250 mg IV daily -stable for transfer to medical floor -pharmacy managing blood sugars-->d/c insulin gtt. Start Lantus 40 u x 1 with novolog sliding scale. Will likely resume insulin pump in the next day or so -continue D5 1/2 NS with KCl @ 150 cc/hr for now. Hyperkalemia-resolved. -getting neb tx now -will likely respond to IVF HTN-BP stable -continue felodipine 10 mg daily, Toprol XL 100 mg qam and 50 mg qpm Acute on chronic renal failure-secondary to volume depletion. Improving -IVF as noted above Hx CAD -continue ASA 81 mg daily, atorvastatin 80 mg daily DVT prophylaxis -Heparin 5000 u subQ BID -TEDS, SCDs CODE STATUS -LEVEL I FULL CODE DISPO -pt lives alone, but has good family support. Will need PT/OT prior to d/c This chart was completed in part utilizing [email or web address] Speech Voice Recognition software. Attempts were made to minimize the grammatical errors, random word insertions, pronoun errors and incomplete sentences. Any formal questions or concerns about the content, text or information contained within the body of this dictation should be directly addressed to the provider for clarification.
--- NOTE | 2016-08-25 12:15 | CRITICAL CARE PROGRESS NOTE ---
DATE: 08/25/2016 GENERAL INFORMATION: This is a patient who is 81 years old and was admitted yesterday for diabetic ketoacidosis. He has a history of bladder cancer and recently had his first treatment with Tecentriq. He is due for another dose on Friday, but came in yesterday with nausea, vomiting and a blood sugar over 1000. He was on an insulin infusion last night and his anion gap has closed. Symptomatically, he is feeling much better, although he still thirsty. He continues to have a dry cough, which has been present for over a week now. He has not had a bowel movement and he has no specific complaints. PHYSICAL EXAMINATION: VITAL SIGNS: Maximum temperature 36.6, heart rate 80-92, respiratory rate 23-26, blood pressure 118-141/50s, and oxygen saturation 94% on 2 liters nasal cannula. 24-hour fluid balance positive 2.5 liters. NEUROLOGIC: He is awake, alert and in no distress. He follows commands and is overall weak if he tries to move about the bed. LUNGS: Have decreased breath sounds in the bases. No rales, rhonchi or wheezes. HEART: Regular rate and rhythm. No murmurs. ABDOMEN: Soft, nondistended, and nontender. Active bowel sounds. There is an ileostomy in the right lower quadrant with some fibrinous exudate around the stoma. Urine is yellow and clear. EXTREMITIES: Warm. No edema. SCDs in place. LABORATORY DATA: White blood cell count 16.01, hemoglobin 9.9, hematocrit 30.3, and platelets 294. Sodium 141, potassium 3.5, chloride 112, CO2 of 19, BUN 76, creatinine 2.1, blood sugar 174, calcium 7.5, and magnesium 1.7. MICROBIOLOGY DATA: Urine culture shows greater than 3 types of organisms, all in high counts. This is not surprising given it was taken from the ileostomy. Blood cultures are pending. PRESENT MEDICATIONS: Acetaminophen, DuoNeb p.r.n., aspirin 81 mg daily, atorvastatin, felodipine, Robitussin, insulin sliding scale, insulin infusion, Levaquin day #2, Toprol-XL, morphine p.r.n., Protonix, and D5 half normal saline with 20 mEq of potassium per liter at 150 mL per hour. EKG from today was reviewed and shows normal sinus rhythm with nonspecific ST-T wave changes and QT interval 491 milliseconds. IMPRESSION: 1. Diabetic ketoacidosis, unclear to me whether or not this might be due to infection, insulin pump malfunction or churn operator margarine error or even a side effect of his Tecentriq. In looking at some of the Tecentriq can cause immune related side effects such as diabetic ketoacidosis. His anion gap has closed. Symptomatically, he is also feeling better. 2. Acute kidney injury, improving. I think he is still hypovolemic and he remains on D5 half normal saline with 20 mEq of potassium chloride per liter at 150 mL per hour. 3. Cough, nonproductive, unchanged. 4. Leukocytosis. He also has a left shift. No infiltrate on chest x-ray and blood cultures are negative. I am not convincing that he has a urinary tract infection. He has been afebrile. 5. Bladder cancer, status post radical cystectomy and loop ileostomy in July 05 of this year, followed by Dr. Chinchilla. 6. History of hypertension. 7. History of obstructive sleep apnea. 8. History of coronary artery disease. 9. Prolonged QT interval, improved. PLAN: NEUROLOGIC: Avoid any sedative medications, in particular Ativan or benzodiazepines. He had a little bit of delirium yesterday. PULMONARY: Continue p.r.n. bronchodilators as well as Robitussin. Consider followup chest x-ray. He is scheduled for sleep study at the end of this month in order to obtain another CPAP device. CARDIOVASCULAR: Continue volume expansion and antihypertensive medications. ENDOCRINE: Transition to b.i.d. long acting insulin with sliding scale and investigate whether or not his pump is working correctly. I discussed this with the pharmacy service, who has looked at the pump itself. Consult diabetes education. HEMATOLOGY/ONCOLOGY: The oncology service will need to be notified of his admission and the possibility that his diabetic ketoacidosis might have come from his new medication. I will leave that to the primary service. RENAL: Continue to appropriately dose medications and replete electrolytes. INFECTIOUS DISEASE: Continue empiric Levaquin. I favor a 7-day course unless clear evidence of infection exists. I discussed the patient's care in detail with his daughter and the patient himself. After transitioning to long acting insulin, if he is stable this afternoon, he may be a candidate for transfer to telemetry. Please call me with any questions or concerns. DANILOD
[2016-08-25 12:36] LABS: PARTIAL THROMBOPLASTIN RATIO 1.1; PROTHROMBIN TIME (PATIENT) 10.8 SECONDS (9.0-12.0)
[2016-08-25] MEDS ORDERED: INSULIN ASPART 100 UNITS/ML 3 ML PEN SC SCH ×2 (16:00→18:00)
[2016-08-25] MEDS ORDERED: LEVOFLOXACIN 250MG / D5W IV SCH (16:00)
[2016-08-25] MEDS ORDERED: [UNRECOGNIZED DRUG - REMARK] ONE (16:00)
[2016-08-25 16:08] LABS: HEMATOCRIT 30.7 % (42-52); MEAN CELL VOLUME 83.9 fL (80-100); MEAN CORPUSCULAR HEMOGLOBIN 27.6 pg (25-34); MEAN CORPUSCULAR HGB CONC 32.9 g/dl (32-36); MEAN PLATELET VOLUME 9.6 fL (7.4-10.4); PLATELET COUNT 293 K/uL (130-400); RED BLOOD COUNT 3.66 M/uL (4.7-6.1); WHITE BLOOD COUNT 15.76 K/uL (4.8-10.8)
[2016-08-25 16:28] LABS: BASO % 0.1 %; BASO ABS # 0.01 K/uL (0-0.2); BUN/CREATININE RATIO 30.1 (10-20); CALCIUM 7.7 mg/dl (8.5-10.1); COMPLETE YES; CREATININE 2.1 mg/dl (0.60-1.40); ECHINOCYTES 1+; EOS % 0.5 %; IG% 0.6 %; LYMPH % 4.6 %; LYMPH ABS # 0.73 K/uL (1.2-3.4); MONO % 5.2 %; POTASSIUM 3.8 mmol/L (3.5-5.1)
[2016-08-25] MEDS ORDERED: NURSING DECISION MEDICATION ORDER SCH (17:45)
[2016-08-25] MEDS ORDERED: EUCERIN CR 120 GM JAR EXT PRN (17:45)
[2016-08-25] MEDS: ATORVASTATIN 40 MG TAB PO SCH (21:15)
[2016-08-25] MEDS: HEPARIN SOD 5000 UNIT/0.5 ML CARP SQ SCH (21:19)
[2016-08-26 00:01] VITALS: BP 122/65; PULSE 95; TEMP 37; O2SAT 90
[2016-08-26] MEDS: INSULIN ASPART 100 UNITS/ML 3 ML PEN SC SCH ×6 (00:28→20:44)
[2016-08-26] MEDS: D5W AND 1/2NSS + 20MEQ KCL 1,000 ML IV SCH (05:20)
[2016-08-26 05:37] LABS: HEMATOCRIT 28.6 % (42-52); MEAN CELL VOLUME 84.9 fL (80-100); MEAN CORPUSCULAR HEMOGLOBIN 28.5 pg (25-34); MEAN CORPUSCULAR HGB CONC 33.6 g/dl (32-36); PLATELET COUNT 277 K/uL (130-400); RED BLOOD COUNT 3.37 M/uL (4.7-6.1); WHITE BLOOD COUNT 11.89 K/uL (4.8-10.8)
[2016-08-26 05:55] LABS: BASO % 0.1 %; BASO ABS # 0.01 K/uL (0-0.2); COMPLETE YES; ECHINOCYTES 1+; EOS % 1.3 %; HYPERSEGMENTED POLYS OCCASIONAL; IG% 0.6 %; LYMPH % 7.8 %; LYMPH ABS # 0.93 K/uL (1.2-3.4); MONO % 7.1 %; NEUT % 83.1 %
[2016-08-26] MEDS: GUAIFENESIN SUGAR FREE 100 MG/5 ML UDC PO PRN (06:03)
[2016-08-26 06:09] LABS: BUN/CREATININE RATIO 29.7 (10-20); CALCIUM 7.3 mg/dl (8.5-10.1); CREATININE 1.8 mg/dl (0.60-1.40); MAGNESIUM 1.9 mg/dl (1.8-2.4); POTASSIUM 3.7 mmol/L (3.5-5.1)
[2016-08-26 07:50] VITALS: BP 146/73; PULSE 91; TEMP 36.5; O2SAT 91
[2016-08-26 08:00] VITALS: O2SAT 93
[2016-08-26] MEDS: FELODIPINE 5 MG TABCR PO SCH (08:41)
[2016-08-26] MEDS: ASPIRIN 81 MG ECTAB PO SCH (08:41)
[2016-08-26] MEDS: METOPROLOL SUCC 50MG EXT REL TAB PO SCH ×2 (08:42→20:37)
[2016-08-26] MEDS ORDERED: INSULIN GLARGINE SOLOSTAR 100 UNITS/ML 3 ML PEN SC ONE (08:45)
[2016-08-26] MEDS: HEPARIN SOD 5000 UNIT/0.5 ML CARP SQ SCH ×2 (08:52→20:42)
[2016-08-26] MEDS ORDERED: INSULIN HUMAN REGULAR IV BOLUS 5 UNIT in SYRINGE 0 ML IV SCH (12:00)
[2016-08-26] MEDS: PANTOprazole INJ 40 MG in SYRINGE 0 ML IV SCH (12:09)
[2016-08-26] MEDS ORDERED: AZITHROMYCIN 250 MG TAB PO ONE (12:30)
--- NOTE | 2016-08-26 12:31 | Progress Note ---
Subjective Date of Service: August 26, 2016. 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 consultant, review of inpatient medication list Feeling okay, no fever and chill, has some chronic cough with yellow-green sputum, for couple days, urostomy back has good production of urine, left lower heel has blisters and pain Blood glucose is around 300 after stop insulin drip, Problem List Medical Problems: (1) Anterior epistaxis Status: Acute (2) Cough Status: Acute (3) Dehydration Status: Acute (4) DKA (diabetic ketoacidoses) Status: Acute (5) Small bowel obstruction Status: Acute (6) Vomiting Status: Acute Review of Systems Constitutional: + see HPI, No chills, No fatigue, No fever, No problem reported , No sweats, No weakness, No weight loss Eyes: No diplopia, No discharge, No eye pain, No redness, No worsening of vision ENT: No dental problems, No hearing loss, No nasal symptoms, No sore throat, No tinnitus, No trouble swallowing, No unusual epistaxis Respiratory: No cough, No dyspnea at rest, No dyspnea on exertion, No hemoptysis, No shortness of breath, No sputum, No wheezing Cardiac: No PND, No chest pain, No claudication, No edema, No orthopnea, No palpitations Abdomen: No constipation, No diarrhea, No nausea, No pain, No vomiting Musculoskeletal: No calf pain, No joint pain, No muscle pain, No swelling Male : No dysuria, No hematuria, No incontinence, No nocturia more than once/ night, No slowing stream, No urinary frequency Neurologic: No balance problems, No memory loss, No numbness/tingling, No paralysis, No vertigo, No weakness Psychiatric: No anhedonism, No anxiety, No depression symptoms, No insomnia, No substance abuse Heme: No abnormal bleeding/bruising, No clotting problems, No night sweats, No swollen lymph nodes Endo: No excessive thirst, No excessive urination, No fatigue Skin: + see HPI, No bleeding, No color change, No itch, No new/changing skin lesions, No rash Objective Vital Signs Date Time Temp Pulse Resp B/P Pulse Ox O2 Delivery O2 Flow Rate FiO2 08/26/16 08:00 93 Nasal Cannula 2.0 08/26/16 07:50 36.5 91 20 146/73 91 08/26/16 00:01 37.0 95 20 122/65 90 Room Air 08/26/16 00:00 Nasal Cannula 2.0 08/25/16 16:58 93 Nasal Cannula 2.0 08/25/16 15:10 36.8 73 18 131/62 93 Nasal Cannula 2.0 08/25/16 14:38 36.5 96 22 127/57 91 2.0 08/25/16 14:00 89 22 154/80 95 Nasal Cannula 3.0 08/25/16 13:48 36.8 84 24 96 3.0 Physical Exam General Appearance: WD/WN, no apparent distress, + pertinent finding (look better than last time I saw him, present awake and alert and orientated) Eyes: normal inspection, PERRL, EOMI, sclerae normal ENT: normal ENT inspection, hearing grossly normal, pharynx normal Neck: supple, no adenopathy, thyroid normal, no JVD, no carotid bruits, trachea midline Respiratory/Chest: chest non-tender, normal breath sounds, no respiratory distress, no accessory muscle use, + decreased breath sounds Cardiovascular: regular rate, rhythm, no edema, no gallop, no JVD, no murmur Abdomen: normal bowel sounds, non tender, soft, no organomegaly, no pulsatile mass, + pertinent finding (urostomy bag in place with yellow urine production) Extremities: normal range of motion, non-tender, normal inspection, no pedal edema, no calf tenderness, normal capillary refill, pelvis stable Neurologic/Psychiatric: supervisor telephone information II-XII nml as tested, no motor/sensory deficits, alert, normal mood/affect, oriented x 3 Skin: normal color, warm/dry, no rash, + pertinent finding (left posterior heel has blisters 2.52.5 cm, no open wound, local tender) Lymphatic: no adenopathy Laboratory Results Last 24 Hours Test 08/25/16 12:23 08/25/16 13:53 08/25/16 16:01 08/25/16 16:18 Bedside Glucose 193 mg/dl 174 mg/dl 132 mg/dl White Blood Count 15.76 K/uL Red Blood Count 3.66 M/uL Hemoglobin 10.1 g/dL Hematocrit 30.7 % Mean Corpuscular Volume 83.9 fL Mean Corpuscular Hemoglobin 27.6 pg Mean Corpuscular Hemoglobin Concent 32.9 g/dl Platelet Count 293 K/uL Mean Platelet Volume 9.6 fL Neutrophils (%) (Auto) 89.0 % Lymphocytes (%) (Auto) 4.6 % Monocytes (%) (Auto) 5.2 % Eosinophils (%) (Auto) 0.5 % Basophils (%) (Auto) 0.1 % Neutrophils # (Auto) 14.03 K/uL Lymphocytes # (Auto) 0.73 K/uL Monocytes # (Auto) 0.82 K/uL Eosinophils # (Auto) 0.08 K/uL Basophils # (Auto) 0.01 K/uL RDW Standard Deviation 49.3 fL RDW Coefficient of Variation 15.9 % Immature Granulocyte % (Auto) 0.6 % Immature Granulocyte # (Auto) 0.09 K/uL Echinocytes 1+ Sodium Level 142 mmol/L Potassium Level 3.8 mmol/L Chloride Level 112 mmol/L Carbon Dioxide Level 19 mmol/L Anion Gap 11.0 mmol/L Blood Urea Nitrogen 63 mg/dl Creatinine 2.10 mg/dl Est Creatinine Clear Calc Drug Dose 30.1 ml/min Estimated GFR () 32.7 Estimated GFR (Non- 28.3 BUN/Creatinine Ratio 30.1 Random Glucose 131 mg/dl Calcium Level 7.7 mg/dl Test 08/25/16 20:16 08/26/16 00:06 08/26/16 03:12 08/26/16 05:07 Bedside Glucose 286 mg/dl 323 mg/dl 243 mg/dl White Blood Count 11.89 K/uL Red Blood Count 3.37 M/uL Hemoglobin 9.6 g/dL Hematocrit 28.6 % Mean Corpuscular Volume 84.9 fL Mean Corpuscular Hemoglobin 28.5 pg Mean Corpuscular Hemoglobin Concent 33.6 g/dl Platelet Count 277 K/uL Mean Platelet Volume 10.0 fL Neutrophils (%) (Auto) 83.1 % Lymphocytes (%) (Auto) 7.8 % Monocytes (%) (Auto) 7.1 % Eosinophils (%) (Auto) 1.3 % Basophils (%) (Auto) 0.1 % Neutrophils # (Auto) 9.88 K/uL Lymphocytes # (Auto) 0.93 K/uL Monocytes # (Auto) 0.84 K/uL Eosinophils # (Auto) 0.16 K/uL Basophils # (Auto) 0.01 K/uL RDW Standard Deviation 50.4 fL RDW Coefficient of Variation 16.1 % Immature Granulocyte % (Auto) 0.6 % Immature Granulocyte # (Auto) 0.07 K/uL Hypersegmented Polys OCCASIONAL Echinocytes 1+ Sodium Level 141 mmol/L Potassium Level 3.7 mmol/L Chloride Level 111 mmol/L Carbon Dioxide Level 19 mmol/L Anion Gap 11.0 mmol/L Blood Urea Nitrogen 53 mg/dl Creatinine 1.80 mg/dl Est Creatinine Clear Calc Drug Dose 35.1 ml/min Estimated GFR () 39.5 Estimated GFR (Non- 34.0 BUN/Creatinine Ratio 29.7 Random Glucose 233 mg/dl Calcium Level 7.3 mg/dl Magnesium Level 1.9 mg/dl Test 08/26/16 07:05 08/26/16 11:13 08/26/16 11:52 Bedside Glucose 252 mg/dl 387 mg/dl Assessment and Plan 81-year-old male history of type 1 diabetes and bladder cancer status post radical cystectomy presented to the emergency department with weakness, vomiting and hyperglycemia Patient was admitted because of DKA on 08/24/2016 DKA- Possible secondary to immunomodulator for hx of bladder CA s/p cystectomy in june vs infectious source such as UTI Which cause poor by mouth intake and nausea and dehydration urine and bl cx , has been negative Possible UTI Has been on Levaquin since admission, today is 3 out of 7, will continue for total 7 days for possible UTI, UA positive but urine culture negative Possible bronchitis with cough and yellow sputum, however chest x-ray negative for pneumonia, currently is on Levaquin, we'll continue -pharmacy managing blood sugars-->d/c insulin gtt. discontinue IV fluid , continue Lantus with novolog sliding scale. Will likely resume insulin pump in the next day or so Hyperkalemia-resolved. HTN-BP stable Acute on chronic renal failure-secondary to volume depletion. Improving Hx CAD The above condition stable continue current medication Left heel blister continue wound care DVT prophylaxis -Heparin 5000 u subQ BID -TEDS, SCDs CODE STATUS -LEVEL I FULL CODE Discussed with patient, 2 daughters in bedside about the condition and care plan , answer all questions Continued [facility] stay due to: home environment unsafe for pt Discharge planning: home
[2016-08-26 12:40] LABS: BUN/CREATININE RATIO 26.5 (10-20); CREATININE 1.9 mg/dl (0.60-1.40); MAGNESIUM 1.8 mg/dl (1.8-2.4); POTASSIUM 4.2 mmol/L (3.5-5.1)
[2016-08-26 12:51] LABS: BETA-HYDROXYBUTYRATE 0.55 mg/dL (0.2-2.81)
--- NOTE | 2016-08-26 13:10 | Pharmacy Progress Note ---
Glycemic Control: Progress Nt Date of Service August 26, 2016. Scope Glycemic Pharmacist consulted by Dr Kramer on 08/25/16 for glycemic control and to write orders per [facility] inpatient glycemic control protocol. Objective Accuchecks BSG (last 24hrs): Test 08/25/16 13:53 08/25/16 16:01 08/25/16 16:18 08/25/16 20:16 Bedside Glucose 174 mg/dl (70-99) 132 mg/dl (70-99) 286 mg/dl (70-99) Random Glucose 131 mg/dl (70-99) Test 08/26/16 00:06 08/26/16 03:12 08/26/16 05:07 08/26/16 07:05 Bedside Glucose 323 mg/dl (70-99) 243 mg/dl (70-99) 252 mg/dl (70-99) Random Glucose 233 mg/dl (70-99) Test 08/26/16 11:13 08/26/16 11:52 Bedside Glucose 387 mg/dl (70-99) Random Glucose 338 mg/dl (70-99) Laboratory Data (last 24hrs) Test 08/25/16 16:01 08/26/16 05:07 08/26/16 11:52 Anion Gap 11.0 mmol/L 11.0 mmol/L 10.0 mmol/L BUN/Creatinine Ratio 30.1 29.7 26.5 Blood Urea Nitrogen 63 mg/dl 53 mg/dl 50 mg/dl Creatinine 2.10 mg/dl 1.80 mg/dl 1.90 mg/dl Potassium Level 3.8 mmol/L 3.7 mmol/L 4.2 mmol/L Sodium Level 142 mmol/L 141 mmol/L 136 mmol/L White Blood Count 15.76 K/uL 11.89 K/uL Red Blood Count 3.66 M/uL 3.37 M/uL Hemoglobin 10.1 g/dL 9.6 g/dL Hematocrit 30.7 % 28.6 % Mean Corpuscular Volume 83.9 fL 84.9 fL Mean Corpuscular Hemoglobin 27.6 pg 28.5 pg Mean Corpuscular Hemoglobin Concent 32.9 g/dl 33.6 g/dl Platelet Count 293 K/uL 277 K/uL Mean Platelet Volume 9.6 fL 10.0 fL Neutrophils (%) (Auto) 89.0 % 83.1 % Lymphocytes (%) (Auto) 4.6 % 7.8 % Monocytes (%) (Auto) 5.2 % 7.1 % Eosinophils (%) (Auto) 0.5 % 1.3 % Basophils (%) (Auto) 0.1 % 0.1 % Neutrophils # (Auto) 14.03 K/uL 9.88 K/uL Lymphocytes # (Auto) 0.73 K/uL 0.93 K/uL Monocytes # (Auto) 0.82 K/uL 0.84 K/uL Eosinophils # (Auto) 0.08 K/uL 0.16 K/uL Basophils # (Auto) 0.01 K/uL 0.01 K/uL Recent Pertinent Medications Outpatient Anti-diabetic Regimen: * Humalog Pump (70-85 units/day); basal = 35.6 units/day with CF 25 and CR * A1c = 6.9 % 07-24-16 The patient is currently receiving: * Basal insulin: Lantus 40 units x 1 on 08/25/16 * Correctional Insulin: Novolog Correction per scale ACHS Goal Range: Low 140 mg/dL - High 1800 mg/dL Correction Factor: 20 mg/dL/unit * Prandial insulin: Per carb ratio of 1 unit per 5 grams CHO consumed Risk Factors for Insulin Resistance: * Infection: possible pneumonia (antibiotics discontinued) * IVF: D51/2NS + 20 KCL @150 cc/hr until 0830 this morning * Diet: type 1 diabetic diet Assessment & Plan ASSESSMENT: * ADA & AACE recommend a goal blood sugar range 140-180 mg/dl for the majority of critically ill & non-critically ill patients. However, more stringent targets may be selected in individual cases. Will utilize more stringent goal of 140-180mg/dl based on patient age & comorbidities. Additionally, tighter glycemic control is warranted to facilitate wound/infection healing. * Mr Callejas was admitted 08/24/16 for DKA, unknown if source is infection, malfunctioning pump, or immunomodulating therapy. Patient was transitioned off of insulin gtt on 08/25/16 and given Lantus 40 units. His blood sugars climbed overnight to a high of 323 mg/dL. This was partially due to the D5 being continued at 150 cc/hr as well as the insulin resistance from being on on insulin gtt. * This morning patient was 252 mg/dL and his home dose of Lantus 35 units was given since an order was obtained to discontinue the dextrose gtt. A tighter goal was initiated for lunch since the patient was no longer in the ICU. Unfortunately, at lunchtime, the patient had a blood sugar of 387 mg/dL so 5 units of IV insulin was given. No changes were made to correctional insulin as the goal range was already tightened. If high blood sugars continue patient may require more IV insulin. PLAN FOR INPATIENT GLYCEMIC CONTROL: * Lantus 35 units x 1 since unsure if pump will be restarted tomorrow * Continuing correction factor of 20 mg/dl/unit * Continuing carb ratio of 1 unit per 5 grams CHO consumed * TIGHTENING goal range to Low 110 mg/dL - High 140 mg/dL RECOMMENDATIONS FOR DISCHARGE: * It is difficult to recommend for discharge at this point. If it is determined that the pump is working correctly the patient may require close followup to monitor blood sugars and adjustment of parameters. * * Please note that the plan above was derived based on current level of insulin resistance and hospital stress. These recommendations are appropriate for inpatient admission only. Plan of care upon discharge will need to be reassessed to avoid potential outpatient hypo/hyperglycemia. Thank you.
[2016-08-26 15:04] VITALS: BMI 26.6
[2016-08-26 16:49] VITALS: BP 120/68; PULSE 92; TEMP 36.4; O2SAT 95
[2016-08-26] MEDS: ATORVASTATIN 40 MG TAB PO SCH (20:37)
[2016-08-27 00:56] VITALS: BP 143/67; PULSE 91; TEMP 37.1; O2SAT 92
[2016-08-27] MEDS: GUAIFENESIN SUGAR FREE 100 MG/5 ML UDC PO PRN ×2 (06:26→14:36)
[2016-08-27 06:31] LABS: BUN/CREATININE RATIO 23.7 (10-20); CALCIUM 7.6 mg/dl (8.5-10.1); CREATININE 1.7 mg/dl (0.60-1.40); MAGNESIUM 1.7 mg/dl (1.8-2.4); POTASSIUM 3.7 mmol/L (3.5-5.1)
--- NOTE | 2016-08-27 07:12 | Clinical Documentation Query ---
CLINICAL DOCUMENTATION QUERY Dr. WAYNE, In your clinical opinion is this patient being managed for: ( x) Pressure ulcer of gluteal cleft, stage 2, POA ( ) Other explanation of clinical findings (Please Explain) ( ) Unable to determine (Please Define) ( ) Need to Discuss ( ) Not Agree The medical record reflects the following clinical findings, treatment, and risk factors. Clinical Indicators:Pt noted to have a WOCN consult. WOCN consult indicates pt has a stage II pressure ulcer at the gluteal cleft. Treatment: WOCN consult, cleanse and apply optifoam and change q 3 days and prn, turn/reposition q 2 hours, accumax/versacare mattress Risk Factors: DM, bladder cancer, lengthy illness, age Please clarify and document your clinical opinion in the progress notes and discharge summary. Terms such as "probable", "suspected", "likely", "questionable", "possible", or "still to be ruled out" are acceptable. IF IN AGREEMENT, YOU MUST DOCUMENT ABOVE DIAGNOSTIC STATEMENT IN DAILY PROGRESS NOTES AND DISCHARGE SUMMARY. This document is not part of the patient's record. Thank You, Alexandria Valero RN [phone]
[2016-08-27 07:27] VITALS: BP 150/73; PULSE 85; TEMP 36.7; O2SAT 94
[2016-08-27] MEDS: FELODIPINE 5 MG TABCR PO SCH (07:42)
[2016-08-27] MEDS: ASPIRIN 81 MG ECTAB PO SCH (07:42)
[2016-08-27] MEDS: METOPROLOL SUCC 50MG EXT REL TAB PO SCH ×2 (07:42→21:39)
[2016-08-27 07:45] VITALS: O2SAT 94
[2016-08-27] MEDS: INSULIN ASPART 100 UNITS/ML 3 ML PEN SC SCH ×2 (08:21→12:35)
[2016-08-27] MEDS: HEPARIN SOD 5000 UNIT/0.5 ML CARP SQ SCH ×2 (08:22→21:40)
[2016-08-27] MEDS ORDERED: MAGNESIUM SULFATE 1GM / D5W 1 GM in PREMIXED IN D5W 100 ML IV ONE (09:00)
[2016-08-27] MEDS ORDERED: AZITHROMYCIN 250 MG TAB PO SCH (09:00)
[2016-08-27] MEDS ORDERED: INSULIN GLARGINE SOLOSTAR 100 UNITS/ML 3 ML PEN SC ONE (09:00)
[2016-08-27] MEDS: MAGNESIUM OXIDE 400 MG TAB PO SCH ×2 (09:14→21:43)
[2016-08-27] MEDS ORDERED: INSULIN HUMAN LISPRO (humaLOG) 100 UNITS/ML VIAL SC PRN (14:00)
[2016-08-27 14:51] VITALS: BP 129/69; PULSE 85; TEMP 36.6; O2SAT 95
--- NOTE | 2016-08-27 15:14 | Pharmacy Progress Note ---
Glycemic Control: Progress Nt Date of Service August 27, 2016. Scope Glycemic Pharmacist consulted by Dr Kramer on 08/25/16 for glycemic control and to write orders per [facility] inpatient glycemic control protocol. Objective Accuchecks BSG (last 24hrs): Test 08/26/16 16:26 08/26/16 20:43 08/27/16 00:28 08/27/16 05:20 Bedside Glucose 73 mg/dl (70-99) 71 mg/dl (70-99) 147 mg/dl (70-99) Random Glucose 211 mg/dl (70-99) Test 08/27/16 07:21 08/27/16 11:18 08/27/16 14:08 Bedside Glucose 272 mg/dl (70-99) 318 mg/dl (70-99) 268 mg/dl (70-99) Laboratory Data (last 24hrs) Test 08/27/16 05:20 Anion Gap 10.0 mmol/L BUN/Creatinine Ratio 23.7 Blood Urea Nitrogen 40 mg/dl Creatinine 1.70 mg/dl Potassium Level 3.7 mmol/L Sodium Level 142 mmol/L Recent Pertinent Medications Outpatient Anti-diabetic Regimen: * Humalog Pump (70-85 units/day); basal = 35.6 units/day with CF 25 and CR * A1c = 6.9 % 07-24-16 The patient is currently receiving: * Basal insulin: Lantus 35 units x 1 on 08/26/16 * Correctional Insulin: Novolog Correction per scale ACHS Goal Range: Low 110 mg/dL - High 140 mg/dL Correction Factor: 20 mg/dL/unit * Prandial insulin: Per carb ratio of 1 unit per 5 grams CHO consumed Risk Factors for Insulin Resistance: * Diet: type 1 diabetic diet Assessment & Plan ASSESSMENT: * ADA & AACE recommend a goal blood sugar range 140-180 mg/dl for the majority of critically ill & non-critically ill patients. However, more stringent targets may be selected in individual cases. Will utilize more stringent goal of 140-180mg/dl based on patient age & comorbidities. Additionally, tighter glycemic control is warranted to facilitate wound/infection healing. * Mr Callejas was admitted 08/24/16 for DKA, unknown if source is infection, malfunctioning pump, or immunomodulating therapy. Patient was transitioned off of insulin gtt on 08/25/16 and given Lantus 40 units. On the 08/26/16 Mr Callejas was given Lantus 35 units x 1 (his home basal dose). He had elevated blood sugars until 1600 where when his blood sugar dropped to 73 mg/dL. He received a total of 82 units yesterday and his blood sugar fluctuated between 71 mg/dL and 387 mg/dL. * Today, Mr Callejas fasting was 211 mg/dL. I spoke with Dr Gonzalez who agreed that his pump could be started today. The pump was here but the supplies were not. Therefore I gave his a third of this total daily dose (12 units of Lantus) in preparation to have the pump placed on around 1400. He did have an elevated blood sugar at lunch and this was covered with correctional insulin. I went to see the patient and he was in agreement with the plan. He also told me that he would monitor his blood sugar closely. PLAN FOR INPATIENT GLYCEMIC CONTROL: * start insulin pump at 1400 after Lantus 12 units SQ x 1 dose. RECOMMENDATIONS FOR DISCHARGE: * It is difficult to recommend for discharge at this point. If it is determined that the pump is working correctly the patient may require close followup to monitor blood sugars and adjustment of parameters. I would recommend making an appointment with Dr Bowens after discharge to determine if pump settings needs changed due to his new medication. * Please note that the plan above was derived based on current level of insulin resistance and hospital stress. These recommendations are appropriate for inpatient admission only. Plan of care upon discharge will need to be reassessed to avoid potential outpatient hypo/hyperglycemia. Thank you.
--- NOTE | 2016-08-27 16:07 | Progress Note ---
Subjective Date of Service: August 27, 2016. Subjective Pt evaluation today including: conversation w/ patient, conversation w/ family , physical exam, chart review, lab review, review of studies, review of inpatient medication list Generally feeling much better, still has cough, the same as yesterday, is in the transition to insulin pump, has been up and walk with physiotherapist's assistant, Problem List Medical Problems: (1) Anterior epistaxis Status: Acute (2) Cough Status: Acute (3) Dehydration Status: Acute (4) DKA (diabetic ketoacidoses) Status: Acute (5) Small bowel obstruction Status: Acute (6) Vomiting Status: Acute Review of Systems Constitutional: No chills, No fatigue, No fever, No problem reported, No sweats , No weakness, No weight loss Eyes: No diplopia, No discharge, No eye pain, No redness, No worsening of vision ENT: No dental problems, No hearing loss, No nasal symptoms, No sore throat, No tinnitus, No trouble swallowing, No unusual epistaxis Respiratory: + cough, + wheezing, No dyspnea at rest, No dyspnea on exertion, No hemoptysis, No shortness of breath, No sputum Cardiac: No PND, No chest pain, No claudication, No edema, No orthopnea, No palpitations Abdomen: No constipation, No diarrhea, No nausea, No pain, No vomiting Musculoskeletal: No calf pain, No joint pain, No muscle pain, No swelling Male : No dysuria, No hematuria, No incontinence, No nocturia more than once/ night, No slowing stream, No urinary frequency Neurologic: No balance problems, No memory loss, No numbness/tingling, No paralysis, No vertigo, No weakness Psychiatric: No anhedonism, No anxiety, No depression symptoms, No insomnia, No substance abuse Heme: No abnormal bleeding/bruising, No clotting problems, No night sweats, No swollen lymph nodes Endo: No excessive thirst, No excessive urination, No fatigue Skin: No bleeding, No color change, No itch, No new/changing skin lesions, No rash Objective Vital Signs Date Time Temp Pulse Resp B/P Pulse Ox O2 Delivery O2 Flow Rate FiO2 08/27/16 14:51 36.6 85 20 129/69 95 08/27/16 07:45 94 Nasal Cannula 2.0 08/27/16 07:27 36.7 85 20 150/73 94 08/27/16 00:56 37.1 91 22 143/67 92 Nasal Cannula 2.0 08/27/16 00:00 Nasal Cannula 2.0 08/26/16 16:49 36.4 92 16 120/68 95 Nasal Cannula 2.0 Physical Exam General Appearance: WD/WN, no apparent distress, + thin Eyes: normal inspection, PERRL, EOMI, sclerae normal ENT: normal ENT inspection, hearing grossly normal, pharynx normal Neck: supple, no adenopathy, thyroid normal, no JVD, no carotid bruits, trachea midline Respiratory/Chest: normal breath sounds, no respiratory distress, no accessory muscle use, + decreased breath sounds Cardiovascular: regular rate, rhythm, no edema, no gallop, no JVD, no murmur Abdomen: normal bowel sounds, non tender, soft, no organomegaly, no pulsatile mass, + pertinent finding (urostomy bag in place has urine output) Extremities: normal range of motion, non-tender, normal inspection, no pedal edema, no calf tenderness, normal capillary refill, pelvis stable Neurologic/Psychiatric: blockmason II-XII nml as tested, no motor/sensory deficits, alert, normal mood/affect, oriented x 3 Skin: normal color, warm/dry, no rash Lymphatic: no adenopathy Laboratory Results Last 24 Hours Test 08/26/16 16:26 08/26/16 20:43 08/27/16 00:28 08/27/16 05:20 Bedside Glucose 73 mg/dl 71 mg/dl 147 mg/dl Sodium Level 142 mmol/L Potassium Level 3.7 mmol/L Chloride Level 111 mmol/L Carbon Dioxide Level 21 mmol/L Anion Gap 10.0 mmol/L Blood Urea Nitrogen 40 mg/dl Creatinine 1.70 mg/dl Est Creatinine Clear Calc Drug Dose 37.2 ml/min Estimated GFR () 42.3 Estimated GFR (Non- 36.5 BUN/Creatinine Ratio 23.7 Random Glucose 211 mg/dl Calcium Level 7.6 mg/dl Magnesium Level 1.7 mg/dl Test 08/27/16 07:21 08/27/16 11:18 08/27/16 14:08 Bedside Glucose 272 mg/dl 318 mg/dl 268 mg/dl Assessment and Plan 81-year-old male history of type 1 diabetes and bladder cancer status post radical cystectomy presented to the emergency department with weakness, vomiting and hyperglycemia Patient was admitted because of DKA on 08/24/2016 DKA, resolved Possible secondary to immunomodulator for hx of bladder CA s/p cystectomy in june vs infectious source such as UTI Which cause poor by mouth intake and nausea and dehydration urine and bl cx , has been negative Hyperglycemia with insulin-dependent diabetic, is putting back his insulin pump Possible UTI Has been on Levaquin since admission, today is 4 out of 7, will continue for total 7 days for possible UTI, UA positive but urine culture negative Possible bronchitis with cough and yellow sputum, however chest x-ray negative for pneumonia, currently is on Levaquin, we'll continue Add DuoNeb, put Robitussin scheduled -pharmacy managing blood sugars-->d/c insulin gtt. discontinue IV fluid , continue Lantus with novolog sliding scale. Put it back on insulin pump Hyperkalemia-resolved. HTN-BP stable Acute on chronic renal failure-secondary to volume depletion. Improving Hx CAD The above condition stable continue current medication Left heel blister continue wound care DVT prophylaxis -Heparin 5000 u subQ BID -TEDS, SCDs CODE STATUS -LEVEL I FULL CODE Taper off oxygen if possible he was not on oxygen at home Continued [facility] stay due to: home environment unsafe for pt Discharge planning: home
[2016-08-27 19:30] VITALS: PULSE 77; O2SAT 94
[2016-08-27] MEDS: ALBUT/IPRATROP 3MG/0.5MG NEB 3 ML VIAL INH SCH (19:30)
[2016-08-27] MEDS: GUAIFENESIN SUGAR FREE 100 MG/5 ML UDC PO SCH (21:38)
[2016-08-27] MEDS: ATORVASTATIN 40 MG TAB PO SCH (21:43)
[2016-08-28] VITALS (10 sets, daily range): BP systolic 127–156; BP diastolic 61–70; PULSE 83–108; TEMP 36.3–36.9; O2SAT 91–96
[2016-08-28] MEDS: GUAIFENESIN SUGAR FREE 100 MG/5 ML UDC PO SCH ×4 (03:55→21:24)
[2016-08-28 06:40] LABS: HEMATOCRIT 31.1 % (42-52); MEAN CORPUSCULAR HEMOGLOBIN 28.1 pg (25-34); MEAN CORPUSCULAR HGB CONC 33.1 g/dl (32-36); MEAN PLATELET VOLUME 10.4 fL (7.4-10.4); PLATELET COUNT 342 K/uL (130-400); RED BLOOD COUNT 3.66 M/uL (4.7-6.1); WHITE BLOOD COUNT 12.07 K/uL (4.8-10.8)
[2016-08-28] MEDS: ALBUT/IPRATROP 3MG/0.5MG NEB 3 ML VIAL INH SCH ×4 (06:57→19:20)
[2016-08-28 07:07] LABS: BUN/CREATININE RATIO 28.1 (10-20); CREATININE 1.5 mg/dl (0.60-1.40); MAGNESIUM 1.8 mg/dl (1.8-2.4); POTASSIUM 3.4 mmol/L (3.5-5.1)
[2016-08-28] MEDS: ASPIRIN 81 MG ECTAB PO SCH (08:32)
[2016-08-28] MEDS: FELODIPINE 5 MG TABCR PO SCH (08:33)
[2016-08-28] MEDS: METOPROLOL SUCC 50MG EXT REL TAB PO SCH ×2 (08:33→21:25)
[2016-08-28] MEDS: MAGNESIUM OXIDE 400 MG TAB PO SCH ×2 (08:34→21:24)
[2016-08-28] MEDS: HEPARIN SOD 5000 UNIT/0.5 ML CARP SQ SCH ×2 (08:35→21:28)
[2016-08-28] MEDS ORDERED: NURSING VERBAL MED ORDER ONE (08:45)
--- NOTE | 2016-08-28 08:51 | Progress Note ---
Subjective Date of Service: August 28, 2016. Subjective Pt evaluation today including: conversation w/ patient, physical exam, chart review, lab review, review of studies, conversation w/ programmer analyst consultant, review of inpatient medication list sitting up in chair, doing good, has bm yesterday, on insulin pump, BG reasonable Problem List Medical Problems: (1) Anterior epistaxis Status: Acute (2) Cough Status: Acute (3) Dehydration Status: Acute (4) DKA (diabetic ketoacidoses) Status: Acute (5) Small bowel obstruction Status: Acute (6) Vomiting Status: Acute Review of Systems Constitutional: No chills, No fatigue, No fever, No problem reported, No sweats , No weakness, No weight loss Eyes: No diplopia, No discharge, No eye pain, No redness, No worsening of vision ENT: No dental problems, No hearing loss, No nasal symptoms, No sore throat, No tinnitus, No trouble swallowing, No unusual epistaxis Respiratory: No cough, No dyspnea at rest, No dyspnea on exertion, No hemoptysis, No shortness of breath, No sputum, No wheezing Cardiac: No PND, No chest pain, No claudication, No edema, No orthopnea, No palpitations Abdomen: No constipation, No diarrhea, No nausea, No pain, No vomiting Musculoskeletal: No calf pain, No joint pain, No muscle pain, No swelling Male : + problem reported (urostomy bag in place, ), No dysuria, No hematuria , No incontinence, No nocturia more than once/night, No slowing stream, No urinary frequency Neurologic: No balance problems, No memory loss, No numbness/tingling, No paralysis, No vertigo, No weakness Psychiatric: No anhedonism, No anxiety, No depression symptoms, No insomnia, No substance abuse Heme: No abnormal bleeding/bruising, No clotting problems, No night sweats, No swollen lymph nodes Endo: No excessive thirst, No excessive urination, No fatigue Skin: No bleeding, No color change, No itch, No new/changing skin lesions, No rash Objective Vital Signs Date Time Temp Pulse Resp B/P Pulse Ox O2 Delivery O2 Flow Rate FiO2 08/28/16 07:57 36.6 100 20 156/70 93 Room Air 08/28/16 06:57 85 16 96 Room Air 08/28/16 00:11 36.9 83 20 144/68 95 Nasal Cannula 2.0 08/28/16 00:00 Nasal Cannula 2.0 08/27/16 19:30 77 16 94 Nasal Cannula 2.0 08/27/16 16:00 Nasal Cannula 2.0 08/27/16 14:51 36.6 85 20 129/69 95 Physical Exam General Appearance: WD/WN, no apparent distress, + pertinent finding (frial, looks better) Eyes: normal inspection, PERRL, EOMI, sclerae normal ENT: normal ENT inspection, hearing grossly normal, pharynx normal Neck: supple, no adenopathy, thyroid normal, no JVD, no carotid bruits, trachea midline Respiratory/Chest: chest non-tender, normal breath sounds, no respiratory distress, no accessory muscle use, + decreased breath sounds Cardiovascular: regular rate, rhythm, no edema, no gallop, no JVD, no murmur Abdomen: normal bowel sounds, non tender, soft, no organomegaly, no pulsatile mass, + pertinent finding (urostomy bag in place, ) Extremities: normal range of motion, non-tender, normal inspection, no pedal edema, no calf tenderness, normal capillary refill, pelvis stable Neurologic/Psychiatric: die forger II-XII nml as tested, no motor/sensory deficits, alert, normal mood/affect, oriented x 3 Skin: normal color, warm/dry, no rash Lymphatic: no adenopathy Laboratory Results Last 24 Hours Test 08/27/16 11:18 08/27/16 14:08 08/27/16 16:52 08/27/16 20:16 Bedside Glucose 318 mg/dl 268 mg/dl 153 mg/dl 189 mg/dl Test 08/28/16 06:01 08/28/16 06:43 08/28/16 07:38 White Blood Count 12.07 K/uL Red Blood Count 3.66 M/uL Hemoglobin 10.3 g/dL Hematocrit 31.1 % Mean Corpuscular Volume 85.0 fL Mean Corpuscular Hemoglobin 28.1 pg Mean Corpuscular Hemoglobin Concent 33.1 g/dl RDW Standard Deviation 50.7 fL RDW Coefficient of Variation 16.3 % Platelet Count 342 K/uL Mean Platelet Volume 10.4 fL Sodium Level 143 mmol/L Potassium Level 3.4 mmol/L Chloride Level 111 mmol/L Carbon Dioxide Level 23 mmol/L Anion Gap 9.0 mmol/L Blood Urea Nitrogen 42 mg/dl Creatinine 1.50 mg/dl Est Creatinine Clear Calc Drug Dose 42.2 ml/min Estimated GFR () 49.2 Estimated GFR (Non- 42.4 BUN/Creatinine Ratio 28.1 Random Glucose 52 mg/dl Calcium Level 8.0 mg/dl Magnesium Level 1.8 mg/dl Bedside Glucose 111 mg/dl 168 mg/dl Assessment and Plan 81-year-old male history of type 1 diabetes and bladder cancer status post radical cystectomy presented to the emergency department with weakness, vomiting and hyperglycemia Patient was admitted because of DKA on 08/24/2016 DKA, resolved Possible secondary to immunomodulator for hx of bladder CA s/p cystectomy in june vs infectious source such as UTI Which cause poor by mouth intake and nausea and dehydration urine and bl cx , has been negative Hyperglycemia with insulin-dependent diabetic, has put back his insulin pump, pharmacy managing blood sugars-->d/c insulin gtt. discontinue IV fluid , was on Lantus with novolog sliding scale. Put it back on insulin pump BG fair controlled Possible UTI Has been on Levaquin since admission, today is 5 out of 7, will continue for total 7 days for possible UTI, UA positive but urine culture negative Possible bronchitis with cough and yellow sputum, however chest x-ray negative for pneumonia, today is better currently is on Levaquin, we'll continue cont DuoNeb, and Robitussin scheduled has tapered off oxygen, he was not on oxygen at home Hyperkalemia-resolved. HTN-BP stable Acute on chronic renal failure-secondary to volume depletion. 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
[2016-08-28] MEDS ORDERED: POTASSIUM CHLORIDE 20 MEQ TABCR PO ONE (09:00)
[2016-08-28] MEDS: LEVOFLOXACIN 250MG / D5W IV SCH (12:25)
--- NOTE | 2016-08-28 13:20 | Pharmacy Progress Note ---
Glycemic Control: Progress Nt Date of Service August 28, 2016. Scope Glycemic Pharmacist consulted by Dr Kramer on 08/25/16 for glycemic control and to write orders per [facility] inpatient glycemic control protocol. Objective Accuchecks BSG (last 24hrs): Test 08/27/16 14:08 08/27/16 16:52 08/27/16 20:16 08/28/16 06:01 Bedside Glucose 268 mg/dl (70-99) 153 mg/dl (70-99) 189 mg/dl (70-99) Random Glucose 52 mg/dl (70-99) Test 08/28/16 06:17 08/28/16 06:43 08/28/16 07:38 08/28/16 11:27 Bedside Glucose 62 mg/dl (70-99) 111 mg/dl (70-99) 168 mg/dl (70-99) 288 mg/dl (70-99) Laboratory Data (last 24hrs) Test 08/28/16 06:01 Anion Gap 9.0 mmol/L BUN/Creatinine Ratio 28.1 Blood Urea Nitrogen 42 mg/dl Creatinine 1.50 mg/dl Potassium Level 3.4 mmol/L Sodium Level 143 mmol/L White Blood Count 12.07 K/uL Recent Pertinent Medications Outpatient Anti-diabetic Regimen: * Humalog Pump (70-85 units/day); basal = 35.6 units/day with CF 25 and CR * A1c = 6.9 % 07-24-16 The patient is currently receiving: * Converted back to insulin pump based on home settings Assessment & Plan ASSESSMENT: * ADA & AACE recommend a goal blood sugar range 140-180 mg/dl for the majority of critically ill & non-critically ill patients. However, more stringent targets may be selected in individual cases. Will utilize more stringent goal of 140-180mg/dl based on patient age & comorbidities. Additionally, tighter glycemic control is warranted to facilitate wound/infection healing. * Mr Callejas was admitted 08/24/16 for DKA, unknown if source is infection, malfunctioning pump, or immunomodulating therapy. Patient was transitioned off of insulin gtt on 08/25/16 and given Lantus 40 units. On the 08/26/16 Mr Callejas was given Lantus 35 units x 1 (his home basal dose). He was given a partial dose of Lantus 12 units on 08/27 in anticipation of transition back to insulin pump in the afternoon. * Since transition back to pump, glycemic control has been adequate. BSGs have ranged from 52 to 288 mg/dL. * Patient was given orange juice for BSG of 52 mg/dL. * Elevated lunch time reading likely due to lack of correction coverage with breakfast. PLAN FOR INPATIENT GLYCEMIC CONTROL: * Continue current insulin pump RECOMMENDATIONS FOR DISCHARGE: * If it is determined that the pump is working correctly the patient may require close followup to monitor blood sugars and adjustment of parameters. * I would recommend making an appointment with patient's sales and service engineer soon after discharge to determine if pump settings need adjusted due to recent addition of chemo medication. * Patient was evaluated by Certified Diabetes Educators while in house. Please see their recommendations (pump is reportedly old and may require upgrade) * Please note that the plan above was derived based on current level of insulin resistance and hospital stress. These recommendations are appropriate for inpatient admission only. Plan of care upon discharge will need to be reassessed to avoid potential outpatient hypo/hyperglycemia. Thank you.
[2016-08-28] MEDS: ATORVASTATIN 40 MG TAB PO SCH (21:25)
[2016-08-29] VITALS: O2SAT 91
[2016-08-29] MEDS: GUAIFENESIN SUGAR FREE 100 MG/5 ML UDC PO SCH ×3 (04:18→16:00)
[2016-08-29] MEDS: ALBUT/IPRATROP 3MG/0.5MG NEB 3 ML VIAL INH SCH (06:02)
[2016-08-29 06:03] VITALS: PULSE 88; O2SAT 92
[2016-08-29 07:31] LABS: CALCIUM 7.9 mg/dl (8.5-10.1); CREATININE 1.6 mg/dl (0.60-1.40)
[2016-08-29 07:45] VITALS: O2SAT 91
[2016-08-29 08:01] VITALS: BP 147/56; PULSE 100; TEMP 36.4; O2SAT 91
[2016-08-29] MEDS: ASPIRIN 81 MG ECTAB PO SCH (08:07)
[2016-08-29] MEDS: MAGNESIUM OXIDE 400 MG TAB PO SCH (08:08)
[2016-08-29] MEDS: METOPROLOL SUCC 50MG EXT REL TAB PO SCH (08:08)
[2016-08-29] MEDS: FELODIPINE 5 MG TABCR PO SCH (08:08)
[2016-08-29] MEDS: HEPARIN SOD 5000 UNIT/0.5 ML CARP SQ SCH (08:12)
[2016-08-29] MEDS: LEVOFLOXACIN 250MG / D5W IV SCH (12:05)
--- NOTE | 2016-08-29 12:10 | Progress Note ---
Subjective Date of Service: August 29, 2016. Subjective Pt evaluation today including: conversation w/ patient, physical exam, chart review, lab review, review of studies, conversation w/ leasing sales consultant, review of inpatient medication list Sitting up in chair, feeling good, conversational, has taper off oxygen, feeling generalized weakness, requests to go to the [facility] Problem List Medical Problems: (1) Anterior epistaxis Status: Acute (2) Cough Status: Acute (3) Dehydration Status: Acute (4) DKA (diabetic ketoacidoses) Status: Acute (5) Small bowel obstruction Status: Acute (6) Vomiting Status: Acute Review of Systems Constitutional: No chills, No fatigue, No fever, No problem reported, No sweats , No weakness, No weight loss Eyes: No diplopia, No discharge, No eye pain, No redness, No worsening of vision ENT: No dental problems, No hearing loss, No nasal symptoms, No sore throat, No tinnitus, No trouble swallowing, No unusual epistaxis Respiratory: No cough, No dyspnea at rest, No dyspnea on exertion, No hemoptysis, No shortness of breath, No sputum, No wheezing Cardiac: No PND, No chest pain, No claudication, No edema, No orthopnea, No palpitations Abdomen: No constipation, No diarrhea, No nausea, No pain, No vomiting Musculoskeletal: No calf pain, No joint pain, No muscle pain, No swelling Male : No dysuria, No hematuria, No incontinence, No nocturia more than once/ night, No slowing stream, No urinary frequency Neurologic: No balance problems, No memory loss, No numbness/tingling, No paralysis, No vertigo, No weakness Psychiatric: No anhedonism, No anxiety, No depression symptoms, No insomnia, No substance abuse Heme: No abnormal bleeding/bruising, No clotting problems, No night sweats, No swollen lymph nodes Endo: No excessive thirst, No excessive urination, No fatigue Skin: No bleeding, No color change, No itch, No new/changing skin lesions, No rash Objective Vital Signs Date Time Temp Pulse Resp B/P Pulse Ox O2 Delivery O2 Flow Rate FiO2 08/29/16 08:01 36.4 100 20 147/56 91 Room Air 08/29/16 07:45 91 Room Air 08/29/16 06:03 88 20 92 Room Air 08/29/16 00:00 91 Room Air 08/28/16 23:49 36.7 98 18 127/64 91 Room Air 08/28/16 19:21 99 20 91 Room Air 08/28/16 16:10 95 Room Air 08/28/16 15:15 102 20 95 Room Air 08/28/16 15:01 36.3 108 19 134/61 96 Room Air Physical Exam General Appearance: WD/WN, no apparent distress, + thin, + pertinent finding ( frail) Eyes: normal inspection, PERRL, EOMI, sclerae normal ENT: normal ENT inspection, hearing grossly normal, pharynx normal Neck: supple, no adenopathy, thyroid normal, no JVD, no carotid bruits, trachea midline Respiratory/Chest: chest non-tender, lungs clear, normal breath sounds, no respiratory distress, no accessory muscle use Cardiovascular: regular rate, rhythm, no edema, no gallop, no JVD, no murmur Abdomen: normal bowel sounds, non tender, soft, no organomegaly, no pulsatile mass Extremities: normal range of motion, non-tender, normal inspection, no pedal edema, no calf tenderness, normal capillary refill, pelvis stable Neurologic/Psychiatric: anesthetic assistant II-XII nml as tested, no motor/sensory deficits, alert, normal mood/affect, oriented x 3 Skin: normal color, warm/dry, no rash Lymphatic: no adenopathy Laboratory Results Last 24 Hours Test 08/28/16 16:36 08/28/16 19:48 08/28/16 20:15 08/29/16 00:08 Bedside Glucose 224 mg/dl 240 mg/dl 142 mg/dl Random Glucose 228 mg/dl Test 08/29/16 04:07 08/29/16 06:43 08/29/16 07:35 08/29/16 11:05 Bedside Glucose 170 mg/dl 178 mg/dl 241 mg/dl Sodium Level 141 mmol/L Potassium Level 4.0 mmol/L Chloride Level 109 mmol/L Carbon Dioxide Level 23 mmol/L Anion Gap 9.0 mmol/L Blood Urea Nitrogen 42 mg/dl Creatinine 1.60 mg/dl Est Creatinine Clear Calc Drug Dose 39.5 ml/min Estimated GFR () 45.5 Estimated GFR (Non- 39.3 BUN/Creatinine Ratio 26.0 Random Glucose 175 mg/dl Calcium Level 7.9 mg/dl Assessment and Plan 81-year-old male history of type 1 diabetes and bladder cancer status post radical cystectomy presented to the emergency department with weakness, vomiting and hyperglycemia Patient was admitted because of DKA on 08/24/2016 DKA, resolved Possible secondary to immunomodulator for hx of bladder CA s/p cystectomy in june vs infectious source such as UTI Which cause poor by mouth intake and nausea and dehydration urine and bl cx , has been negative Hyperglycemia with insulin-dependent diabetic, has put back his insulin pump, blood glucose is fairly controlled pharmacy managing blood sugars-->d/c insulin gtt. discontinue IV fluid , was on Lantus with novolog sliding scale. Put it back on insulin pump BG fair controlled Possible UTI Has been on Levaquin since admission, he was missed to dose, restarted yesterday, , will continue on it for yesterday and tomorrow and today for possible UTI, UA positive but urine culture negative Possible bronchitis with cough and yellow sputum, however chest x-ray negative for pneumonia, cough continue getting better Has been on Levaquin, after today's antibiotics were no more need any antibiotic cont DuoNeb, and Robitussin scheduled has tapered off oxygen, he was not on oxygen upon discharge Hyperkalemia-resolved. HTN-BP stable Acute on chronic renal failure-secondary to volume depletion. 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
[2016-08-29] MEDS ORDERED: IPRATROPIUM BROMIDE/ALBUTEROL respimat INH INH SCH (13:00)
[2016-08-29] MEDS ORDERED: NURSING VERBAL MED ORDER ONE (14:45)
[2016-08-29 15:21] VITALS: BP 137/81; PULSE 93; TEMP 36.9; O2SAT 90
[2016-08-29] MEDS ORDERED: MGNO400 PO (15:30)
[2016-08-29] MEDS ORDERED: RBTUDL5 PO (15:30)
--- NOTE | 2016-08-29 15:31 | Discharge Instructions ---
Discharge Instructions Date of Service August 29, 2016. Admission Reason for Admission: Dka (Diabetic Ketoacidoses) Discharge Discharge Diagnosis / Problem: DKA, hyperglycemia Discharge Goals Goal(s): Decrease discomfort, Improve function, Increase independence, Improve disease control, Improve nutritional status, Learn about illness, Diagnostic testing, Therapeutic intervention, Prevent Disease Progression, Specific goals Activity Recommendations Activity Level: Up Ad Lana Therapies: Physical Therapy, Occupational Therapy . 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 - call your primary care physician OR go to local emergency room if has any fever/chill, chest pain, shortness of breathing, nausea/vomiting/abdominal pain , facial droop/slurry speech/local weakness, or if has any questions. - fall precaution - diet as instructed - you need to follow up with your subspecialist - you should understand that it is important to follow up the above instruction , and "not following the above instruction" may cause delayed or missed care of your medical conditions which may cause permanent organ damage and even . Current Hospital Diet Patient's current hospital diet: AHA Diet (Heart Healthy), Diabetes Type 1 Diet Discharge Diet Recommended Diet: Diabetes Type 1 Diet Pending Studies Studies pending at discharge: no Physician Orders On Transfer POLST Discussion: without POLST completion Laboratory Results Hemoglobin A1c Test 07/24/16 08:05 Range/Units Estimated Average Glucose 151 mg/dl Hemoglobin A1c 6.9 H 4.5-5.6 % Medical Emergencies . Who to Call and When: Medical Emergencies: If at any time you feel your situation is an emergency, please call 911 immediately. . Non-Emergent Contact Non-Emergency issues call your: Primary Care Provider, Urologist, Specialist ( router operator radial) . . "Provider Documentation" section prepared by Brent Gonzalez. . Core Measure Problem Core Measures: None
--- NOTE | 2016-08-29 15:40 | Discharge Summary ---
Discharge Summary Date of Service August 29, 2016. Discharge Summary Admission Date: August 24, 2016 at 12:56 Discharge Date: August 29, 2016 Discharge Disposition: [facility] facility Principal Diagnosis: type 1 diabetes and DKA Problems/Secondary Diagnoses: UTI and bronchitis , Immunizations: Have You Had Influenza Vaccine: Yes Influenza Vaccine Date: Feb 22, 2008 History of Tetanus Vaccine?: Yes History of Pneumococcal: Yes Pneumococcal Date: May 24, 2004 History of Hepatitis B Vaccine: Unknown Procedures: No Consultations: no Medication Reconciliation New Medications: Guaifenesin (Robitussin) 100 Mg/5 Ml Lenora 100 MG PO Q6H for 3 Days Magnesium Oxide (Magnesium-Oxide) 400 Mg Tab 400 MG PO BID for 3 Days, #6 TAB Continued Medications: Ascorbic Acid (Vitamin C) 500 Mg Tab 2 TAB PO DAILY Aspirin (Aspirin Ec) 81 Mg Tab 81 MG PO QAM Atorvastatin (Lipitor) 80 Mg Tab 80 MG PO HS, TAB Diclofenac Sodium (Topical) (Voltaren 1% Top Gel) 1 % Gel 1 DOSE TOP UD PRN for Pain Felodipine (Felodipine ER) 10 Mg Tabcr 10 MG PO QAM Finasteride (Proscar) 5 Mg Tab 5 MG PO QAM, TAB Insulin Human Lispro (Insulin Humalog Pump ) Pump 70-85 UNITS N/A DAILY, EA Ipratropium-Albuterol (Combivent Respimat) 1 Aer Aer 1 PUFF INH UD PRN for SOB/Wheezing, INH 1 PUFF INH 1-2 X DAILY Metoprolol Succ (Toprol Xl) (Toprol-Xl ) 100 Mg Tabcr 100 MG PO QAM, TAB Metoprolol Succinate (Toprol Xl) 50 Mg Tabcr 50 MG PO HS, #30 TAB Multiple Vitamins W/ Minerals (Centrum Silver Ultra Mens) 1 Tab Tab 1 TAB PO DAILY Polyethylene Glycol 3350 (Miralax) 1 Pow Pow 17 GM PO DAILY PRN for Constipation, #255 GM Tamsulosin Hcl (Flomax) 0.4 Mg Cap 0.4 MG PO HS, CAP Discontinued Medications: Insulin Glargine (Lantus) 100 Unit/Ml Inj UNITS SC DAILY, VIAL use UP TO 50 units per day Levofloxacin (Levaquin) 250 Mg Tab 250 MG PO QPM for 10 Days, TAB Discharge Exam Please see today's progress note Review of Systems: Constitutional: + problem reported (please see today's progress note) Physical Exam: General Appearance: + pertinent finding (see today's progress note) Hospital Course 81-year-old male history of type 1 diabetes and bladder cancer status post radical cystectomy presented to the emergency department with weakness, vomiting and hyperglycemia Patient was admitted because of DKA on 08/24/2016 DKA, resolved Possible secondary to immunomodulator for hx of bladder CA s/p cystectomy in june vs infectious source such as UTI Which cause poor by mouth intake and nausea and dehydration urine and bl cx , has been negative Hyperglycemia with insulin-dependent diabetic, has put back his insulin pump, blood glucose is fairly controlled pharmacy managing blood sugars-->d/c insulin gtt. discontinue IV fluid , was on Lantus with novolog sliding scale. Put it back on insulin pump BG fair controlled Possible UTI Has been on Levaquin since admission, he was missed to dose, restarted yesterday, , will continue on it for yesterday and tomorrow and today for possible UTI, UA positive but urine culture negative Possible bronchitis with cough and yellow sputum, however chest x-ray negative for pneumonia, cough continue getting better Has been on Levaquin, after today's antibiotics were no more need any antibiotic cont DuoNeb, and Robitussin scheduled has tapered off oxygen, he was not on oxygen upon discharge Hyperkalemia-resolved. HTN-BP stable Acute on chronic renal failure-secondary to volume depletion. Improving Hx CAD The above condition stable continue current medication pressure ulcer of gluteal cleft stage 2 POA and Left heel blister continue wound care K low: replaced DVT prophylaxis -Heparin 5000 u subQ BID -TEDS, SCDs CODE STATUS -LEVEL I FULL CODE Per recommendation of [facility]OT patient need to have ECF rehabilitation, transplant case manager on the case, we got group home to go today, patient will discharge in stable condition Instructions / Follow-Up you have type 1 diabetes and DKA on 08/24/2016 you need to continue insulin pump as instructed by , call him if have any questions You possible has UTI and bronchitis , which has been completely treated, no more need any antibiotic You have pressure ulcer of gluteal cleft stage 2 POA, you need to continue wound care - you need to follow up with your primary care physician in 1 week, - take medication as instructed, never overdose or any misuse, or take with alcohol, because misuse of medicine may cause organ damage or , call your primary care physician if have questions of medicaitons. - call your primary care physician OR go to local emergency room if has any fever/chill, chest pain, shortness of breathing, nausea/vomiting/abdominal pain , facial droop/slurry speech/local weakness, or if has any questions. - fall precaution - diet as instructed - you need to follow up with your subspecialist - you should understand that it is important to follow up the above instruction , and "not following the above instruction" may cause delayed or missed care of your medical conditions which may cause permanent organ damage and even . Total Time Spent: Less than 30 minutes This includes examination of the patient, discharge planning, medication reconciliation, and communication with other providers. Discharge Instructions Please refer to the electronic Patient Visit Report (Discharge Instructions) for additional information. Additional Copies To Vick Almanzar M.D.
[2016-08-29 16:26] VITALS: BP 137/81; PULSE 93; TEMP 36.9; O2SAT 90
[2016-08-29 16:28] VITALS: Ht 185.4 cm; Wt 91.5 kg
[2016-09-04] MEDS ORDERED: DOCU-94 PO (11:52)
[2016-09-04] MEDS ORDERED: INSPMPHMLG (12:12)
[2016-11-21] MEDS ORDERED: PLV75 PO (11:06)
[2016-11-22] MEDS ORDERED: CLOP1TAB15 PO (09:26)
== END 2016-08-29 17:15 | DRG 638 ==
LOC: ENRESERVTM → ENRESERVDT → EDBD 10:58 → C.EDC 10:59 → C.MSICU 12:56 → C.MS2W 08-25 14:30
PROVIDERS: ADMIT Family Medicine; ATTEND Hospitalist
DX: E10.10 Type 1 diabetes mellitus with ketoacidosis without coma (principal); N17.9 Acute kidney failure, unspecified; N39.0 Urinary tract infection, site not specified; E87.5 Hyperkalemia; N18.9 Chronic kidney disease, unspecified; I12.9 Hypertensive chronic kidney disease with stage 1 through stage 4 chronic kidney disease, or unspecified chronic kidney disease; E10.22 Type 1 diabetes mellitus with diabetic chronic kidney disease; I25.10 Atherosclerotic heart disease of native coronary artery without angina pectoris; C67.9 Malignant neoplasm of bladder, unspecified; G47.33 Obstructive sleep apnea (adult) (pediatric); J40 Bronchitis, not specified as acute or chronic; Z79.4 Long term (current) use of insulin; Z79.82 Long term (current) use of aspirin; Z79.899 Other long term (current) drug therapy; Z87.891 Personal history of nicotine dependence; Z83.3 Family history of diabetes mellitus; Z90.6 Acquired absence of other parts of urinary tract; L89.892 Pressure ulcer of other site, stage 2

== ENCOUNTER → 2016-09-05 | Outpatient (CLI) | payer BC ==
[~2016-09-05] MED LIST changes: -ACET-1175 PO; -ALBUAER INH; -ASCA500 PO; +CLOP1TAB15 PO; -DICL1GEL12 TOP; +DOCU-94 PO; -FINA5TAB PO; -LEVO-17 PO; -MELO15TA4 PO; +MGNO400 PO; -MULT-845 PO; -OXYC-57 PO; -PHEN-876 PO; +PLV75 PO; +POLY335019 PO; -TAMS0.4C38 PO
--- NOTE | 2016-09-05 16:13 | DIAGNOSTIC IMAGING REPORT ---
ULTRASOUND LEFT LOWER EXTREMITY ARTERIAL; ANKLE-BRACHIAL INDICES CLINICAL HISTORY: Left lower extremity nonhealing wound. COMPARISON STUDY: Left lower extremity arterial ultrasound dated 12/05/2014. TECHNIQUE: Real-time, grayscale, and color Doppler sonography of the arteries of the left lower extremity is performed from the inguinal crease to the foot. Ankle-brachial indices are calculated. FINDINGS: Ankle brachial indices: Right brachial pressure measures 122 and left brachial pressure measures 140. Pressures in the right posterior tibial artery measure 121 for an OSCAR of 0.86, and pressures in the right dorsalis pedis artery measure 144 for an OSCAR of 1.03. Pressures in the left posterior tibial artery measure 70 for an OSCAR of 0.50, and pressures in the left dorsalis pedis artery measure 67 for an OSCAR of 0.48. Left lower extremity: There is moderate echogenic shadowing atherosclerotic plaque seen throughout the arteries of the left lower extremity. There are biphasic arterial waveforms in the left common femoral artery with velocities measuring up to 62 cm/s. There are feuyxpkkef-vu-pdmnhkjf waveforms in the profunda femoris artery which are blunted. Velocities in the left profunda femoris artery measure up to 36 cm/s. There are lbbrcryiik-oe-pduwbwsd arterial waveforms throughout the left superficial femoral artery which demonstrate a delayed arterial upstroke. Velocities throughout the left superficial femoral artery measure up to 42 cm/s proximally, 42 cm/s in the midportion, and 32 cm/s distally. There are blunted monophasic arterial waveforms present in the popliteal artery with velocities measuring up to 30 cm/s. There is three-vessel runoff to the foot. Monophasic waveforms are present throughout the calf arteries. Velocities in the calf arteries measure up to 28 cm/s. The dorsalis pedis artery is patent with velocities measuring up to 20 cm/s. IMPRESSION: 1. Peripheral vascular disease with abnormally blunted arterial waveforms throughout the left lower extremity. 2. No elevated velocities are seen to suggest high-grade stenosis and no focal vessel cut off is identified. 3. The appearance is overall similar to the 12/05/2014 examination. 4. Ankle-brachial indices as above. Dictated: 09/05/2016 3:59 PM Transcribed: 09/05/2016 4:12 PM Lisa Electronically signed by: Arvind Rea M.D. 09/06/2016 4:09 PM Dictated Date/Time: 09/05/2016 3:59 PM
== END | disposition home or self-care (01) ==
LOC: C.ULTR 15:04
PROVIDERS: ATTEND Physician Assistant
DX: I73.9 Peripheral vascular disease, unspecified (principal); S91.002A Unspecified open wound, left ankle, initial encounter; X58.XXXA Exposure to other specified factors, initial encounter

== ENCOUNTER → 2016-09-20 | Outpatient (CLI) | payer BC ==
[2016-09-20 18:57] LABS: CALCIUM 8.8 mg/dl (8.5-10.1)
[2016-09-20 19:03] LABS: BLOOD UREA NITROGEN 64 mg/dl (7-18); CARBON DIOXIDE 23 mmol/L (21-32); CHLORIDE 111 mmol/L (98-107); GLUCOSE 117 mg/dl (70-99); MAGNESIUM 2.1 mg/dl (1.8-2.4); PHOSPHORUS 3.5 mg/dl (2.5-4.9); POTASSIUM 4.2 mmol/L (3.5-5.1); SODIUM 145 mmol/L (136-145)
== END | disposition home or self-care (01) ==
LOC: C.LAB1850 16:34
PROVIDERS: ATTEND Internal Medicine Nephrology
DX: N28.9 Disorder of kidney and ureter, unspecified (principal)

== ENCOUNTER → 2016-09-26 | Outpatient (CLI) | payer BC ==
[2016-09-26 15:37] LABS: BLOOD UREA NITROGEN 39 mg/dl (7-18); CALCIUM 8.3 mg/dl (8.5-10.1); CARBON DIOXIDE 21 mmol/L (21-32); CHLORIDE 109 mmol/L (98-107); GLUCOSE 277 mg/dl (70-99); PHOSPHORUS 3.4 mg/dl (2.5-4.9); POTASSIUM 4.2 mmol/L (3.5-5.1); SODIUM 139 mmol/L (136-145)
== END | disposition home or self-care (01) ==
LOC: C.LAB1850 13:53
PROVIDERS: ATTEND Internal Medicine Nephrology
DX: N28.9 Disorder of kidney and ureter, unspecified (principal)

== ENCOUNTER → 2016-10-11 | Day surgery (SDC) | payer BC ==
[~2016-10-11] VITALS: Ht 185.4 cm; Wt 87.5 kg
[~2016-10-11] MED LIST changes: -METO100T44 PO; +METO1TAB69 PO; +OPTIRAY 320 IV PRN; +SODIUM CHLORIDE 0.9% 1000ML 1,000 ML IV SCH
[2016-10-11 10:25] VITALS: BP 159/61; PULSE 86; TEMP 36.4; O2SAT 95; Ht 185.4 cm; Wt 87.5 kg
--- NOTE | 2016-10-11 14:02 | DIAGNOSTIC IMAGING REPORT ---
ANGIO AA JULIETTE LE RUNOFF CLINICAL HISTORY: 81 years-old Male presenting with peripheral artery disease. TECHNIQUE: Multidetector CT angiography of the abdomen and pelvis with bilateral lateral lower extremity runoff was performed after the administration of intravenous contrast. 3-D volumetric and maximum intensity projection (MIP) images were subsequently reconstructed for review. IV contrast: None. COMPARISON: Correlation made to ultrasound of the left lower extremity arteries on 09/05/2016. And CT of the abdomen and pelvis from 08/15/2016. CT DOSE: The estimated cumulative dose is 1539.45 mGy.cm. FINDINGS: Water Treatment Specialist topogram: Total left hip arthroplasty noted. Lung bases: Lung bases clear. No pericardial or pleural effusion. Liver: Normal morphology. Vague blush of contrast in the medial left hepatic lobe (series 2 image 76) disease, possibly hemangioma, similar appearing vague region noted in the medial right hepatic lobe (series 2 image 88). These may represent flash filling hemangiomas but are indeterminant. Patent hepatic vasculature. Biliary: No intrahepatic or extrahepatic biliary ductal dilatation. Small gallstone at the gallbladder neck. Pancreas: Moderate to severe fatty atrophy of the pancreatic parenchyma. Spleen: Scattered punctate calcifications likely indicate old granulomatous disease. Adrenal glands: Normal. Kidneys and ureters: Dilation of the right renal collecting system as on prior exam. Right urothelial thickening and enhancement. Heterogeneous and delayed perfusion of the right kidney relative to the left. Mild right ureteral dilatation. Mild left pelviectasis. Left urothelial thickening and enhancement noted to a lesser degree. The patient is status post cystectomy and ileal conduit creation in the right lower quadrant. The ureters are nondilated. Gastrointestinal tract: Moderate stool burden in the rectum. No perirectal inflammatory change. Widely patent anastomosis in the distal small bowel. Dilation of the terminal ileum up to 2.7 cm with inspissated material consistent with delayed transit. No bowel obstruction. Small hiatal hernia. Peritoneal cavity: No free fluid or intraperitoneal gas. Bladder: Patient is status post cystectomy. Pelvic organs: Patient is status post prostatectomy. Vasculature: Extensive atherosclerosis of the normal caliber abdominal aorta with calcified and noncalcified atherosclerotic plaque. Origins of the celiac and superior mesenteric arteries are patent. Single right main renal artery patent at its origin. 3 left renal arteries, a diminutive superior vessel and larger middle and inferior renal arteries. The diminutive superior artery and larger middle artery are patent at their origins, however, stenosis of the origin of the most inferior larger renal artery is noted. Occlusion of the left common iliac artery with recanalization of the left common iliac bifurcation, likely a result of retrograde flow. Filling via hypertrophied vessels in the left lateral abdominal wall via the common femoral artery. External iliacs arteries patent bilaterally. Lymph nodes: Enlarged peripancreatic lymph node measuring 20 x 8 mm (series 2 image 135). Additional enlarged portacaval lymph node measuring 26 x 9 mm (series 2 image 146). These are nonspecific. Abdominal wall: Right lower quadrant ileal conduit. Musculoskeletal: Degenerative changes of the right hip joint. Total left hip arthroplasty. Degenerative changes of the lumbar spine and sacroiliac joints. Lower extremities: Common femoral, superficial femoral, profunda femoris, popliteal, anterior and posterior tibial, and peroneal vessels patent bilaterally. Dorsalis pedis not opacified in the left foot. Common plantar and lateral plantar arteries patent bilaterally. IMPRESSION: 1. Postsurgical changes of cystoprostatectomy with ileal conduit creation in the right lower quadrant. Urothelial thickening and enhancement in the bilateral collecting systems, right greater than left, likely indicates chronic inflammation or infection. Heterogeneous hypoperfusion of the right kidney raises concern for pyelonephritis and/or obstruction. However, the dilated right renal collecting system is chronic. Correlate with urinalysis. 2. Delayed transit in the small bowel. Widely patent distal small bowel anastomosis. 3. Extensive atherosclerotic disease of the aortoiliac vessels with occlusion of the left common iliac artery. Reconstitution of the left common iliac bifurcation likely from retrograde flow. Bilateral lower extremity vessels patent. Nonopacification of the left dorsalis pedis. 4. Nonspecific enlarged peripancreatic and portacaval lymph nodes. These could be reactive. Electronically signed by: Hardik Suárez 10/11/2016 2:01 PM Dictated Date/Time: 10/11/2016 1:38 PM
== END | disposition home or self-care (01) ==
LOC: C.MTU 10-09 09:03 → EDSTATUS 10-09 10:20 → C.MTU 10:00
PROVIDERS: ATTEND Internal Medicine Interventional Cardiology
DX: I73.9 Peripheral vascular disease, unspecified (principal); Z96.642 Presence of left artificial hip joint

== ENCOUNTER → 2016-10-16 | Outpatient (CLI) | payer BC ==
[~2016-10-16] MED LIST changes: -OPTIRAY 320 IV PRN; -SODIUM CHLORIDE 0.9% 1000ML 1,000 ML IV SCH
--- NOTE | 2016-10-16 09:16 | DIAGNOSTIC IMAGING REPORT ---
RENAL ULTRASOUND HISTORY: Renal insufficiency CHECK KIDNEY FUNCTION COMPARISON: 05/24/2016 FINDINGS: Right kidney: Mild right renal hydronephrosis. Maximum linear dimension 14 cm. Cortical scarring and increased cortical echogenicity unchanged from the prior study Left kidney: No evidence for hydronephrosis. Maximum linear dimension 13 cm. Cortical scarring and increased cortical echogenicity and change Bladder: No bladder wall thickening. The bilateral ureteral jets were identified. IMPRESSION: Findings consistent with nonobstructive renal insufficiency. Mild right renal hydronephrosis unchanged from the prior exam. Electronically signed by: Jose Pereyra M.D. 10/16/2016 9:15 AM Dictated Date/Time: 10/16/2016 9:12 AM
== END | disposition home or self-care (01) ==
LOC: C.ULTR 08:41
PROVIDERS: ATTEND Emergency Medicine
DX: N28.9 Disorder of kidney and ureter, unspecified (principal)

== ENCOUNTER 2016-11-20 08:12 | Observation (INO) | payer BC ==
[~2016-11-20] VITALS: Ht 185.4 cm; Wt 90.5 kg
[~2016-11-20 08:12] MED LIST changes: -CLOP1TAB15 PO; -PLV75 PO; +RANITIDINE IV 50 MG in DEXTROSE 5% 100ML 100 ML IV PRN; +SODIUM CHLORIDE 0.9% 1000ML 1,000 ML IV ONE
[2016-11-20 08:46] VITALS: BP 158/63; PULSE 76; TEMP 36.5; O2SAT 95; BMI 26.0
[2016-11-20] MEDS ORDERED: NURSING VERBAL MED ORDER ONE ×2 (12:45→18:00)
[2016-11-20] MEDS ORDERED: NITROGLYCERIN 5 MG/ML 10 ML VIAL ONE (12:47)
[2016-11-20] MEDS ORDERED: HEPARIN SOD (PORCINE) 1000 UNIT/ML 10 ML VIAL ONE ×2 (12:47→15:00)
[2016-11-20] MEDS ORDERED: NiCARDipine HCL INJ 2.5 MG/ML 10 ML AMP ONE (12:47)
[2016-11-20] MEDS ORDERED: FENTANYL CITRATE INJ 50 MCG/1 ML 2 ML VIAL ONE (12:47)
[2016-11-20] MEDS ORDERED: MIDAZOLAM HCL 1 MG/ML 2ML VIAL ONE (12:48)
[2016-11-20 12:59] VITALS: BP 158/63; PULSE 76; TEMP 36.5; O2SAT 95
[2016-11-20] MEDS ORDERED: NITROGLYCERIN/D5W 100MCG/ML 20ML SYR ONE (12:59)
[2016-11-20] MEDS ORDERED: SODIUM CHLORIDE 0.9% 1000ML 1,000 ML IV SCH ×2 (13:00→16:26)
--- NOTE | 2016-11-20 13:06 | Procedure Note ---
Pre-Mod Sedation Assessment General Date of Moderate Sedation: Nov 20, 2016. Vital Signs: Vital Signs Past 12 Hours Date Time Temp Pulse Resp B/P (MAP) Pulse Ox O2 Delivery O2 Flow Rate FiO2 11/20/16 12:59 36.5 76 18 158/63 95 Room Air 11/20/16 08:46 36.5 76 18 158/63 (94) 95 Room Air Review Cardiovascular: regular rate, rhythm, no edema Abdomen: normal bowel sounds, non tender Lungs: chest non-tender, lungs clear Pre-Sedation Airway Assessment Oral Cavity: Dentures Able to Visualize Vocal Cords: No Short Thick Neck: No Hx of Sleep Apnea: Yes Smoking Status: Former Smoker Mallampati Classification: Class III ASA Classification: Class III Procedure Planning Contraindications-for Mod Sed: None Yes Notes The planned sedation has been discussed with the patient and consent obtained. I have identified the patient, determined the appropriateness of sedation and have assessed the patient immediately prior to the procedure. All medicine(s) and interventions are by my order.
[2016-11-20] MEDS ORDERED: METHYLPREDNISOLONE 125 MG VIAL ONE (13:13)
[2016-11-20] MEDS ORDERED: METHYLPREDNISOLONE IV 125 MG in SYRINGE 0 ML IV ONE (13:30)
[2016-11-20] MEDS ORDERED: LIDOCAINE HCL 1% 20 ML VIAL INJ ONE ×2 (14:06→14:16)
[2016-11-20] MEDS ORDERED: MIDAZOLAM HCL 1 MG/ML 2ML VIAL IV ONE ×2 (14:07→15:23)
[2016-11-20] MEDS ORDERED: FENTANYL CITRATE INJ 50 MCG/1 ML 2 ML VIAL IV ONE ×3 (14:07→15:53)
[2016-11-20] MEDS ORDERED: HEPARIN SOD (PORCINE) 1000 UNIT/ML 10 ML VIAL IV ONE ×2 (14:25→15:00)
[2016-11-20] MEDS ORDERED: VISIPAQUE IV ONE (16:06)
--- NOTE | 2016-11-20 16:19 | Procedure Note ---
Post-Mod Sedation Assessment General Date of Moderate Sedation Nov 20, 2016. Vital Signs: Vital Signs Past 12 Hours Date Time Temp Pulse Resp B/P (MAP) Pulse Ox O2 Delivery O2 Flow Rate FiO2 11/20/16 12:59 36.5 76 18 158/63 95 Room Air 11/20/16 08:46 36.5 76 18 158/63 (94) 95 Room Air Review - Discharge Criteria Vital Signs Stable: Yes Alert/Oriented/Conversant: Yes Returned to Baseline Mental St: Yes Nausea Absent/Minimal: Yes Pain/Discomfort/Absent/Minimal: Yes Normal/Baseline Respirations: Yes Active Bleeding?: No Pt Received D/C Instructions: N/A Prescriptions Given: None Specific Proced. D/C Criteria Distal Pulses Present (Cardiac: Yes Groin site assessed-Card Cath: N/A Voided Prior To Discharge: N/A Discharged Patients Adult Escort/Transportation: Yes
--- NOTE | 2016-11-20 16:22 | [facility] Operative Report ---
Operative Report Operative Date Nov 20, 2016. Pre-Operative Diagnosis Peripheral Artery Disease Post-Operative Diagnosis Peripheral Artery Disease Procedure(s) Performed Bilateral lower extremity angiogram Left common iliac stenting Bilateral MARKET DEVELOPMENT SPECIALIST closure device placement Surgeon Valero Shirt Operator Surgeon(s) Lizzy Dias Estimated Blood Loss 25 Findings Left lower extremity: Common iliac -Calcified ostial chronic total occlusion with reconstitution prior to iliac bifurcation External iliac - Minimal disease Internal iliac - Minimal disease MARKET DEVELOPMENT SPECIALIST - Minimal disease Profunda - Minimal disease SFA - Minimal disease Right lower extremity: Common iliac - Ostial 50-60% stenosis with post stenosis dilation External iliac - Mild disease Internal iliac - Minimal disease MARKET DEVELOPMENT SPECIALIST - Minimal disease, OK for closure device placement Profunda - Minimal disease SFA - Minimal disease Specimens None Drains None Anesthesia Moderate Complication(s) None Disposition PCU Indications PAD Lower extremity ulceration Description of Procedure Right common femoral access obtained, short 5Fr sheath placed Iliac angiogram performed with RIM catheter Left MARKET DEVELOPMENT SPECIALIST ultrasound guided access, with 6Fr short sheath placement Attempted to cross left common iliac occlusion in retrograde fashion with Glideadvantage wire and angled glide catheter. Entered into dissection plane early in external iliac artery and unable to re- enter into true lumen. Able to cross lesion in retrograde fashion from contralateral MARKET DEVELOPMENT SPECIALIST using RIM catheter and glide advantage. Wire passed down into right MARKET DEVELOPMENT SPECIALIST and eventually into R MARKET DEVELOPMENT SPECIALIST sheath and wire externalized. Common iliac dilated with 5.0 balloon Externalized glideadvantage removed via quickcross which was re-directed into infrarenal aorta. Left CONG ostium stented with balloon expandable 7.0 x 59 mm stent Post stent external iliac showed persistent dissection. Self expandable 7 x 100 mm stent overlapped with CONG stent into external iliac artery Post procedure angiogram showed well expanded stents, with no significant residual dissection. Good distal flow with new palpable left MARKET DEVELOPMENT SPECIALIST, DP/PT pulses. Bilateral MARKET DEVELOPMENT SPECIALIST closed with mynx devices. 135 cc of contrast used. Summary: 1. Occluded ostial left common iliac artery 2. 50-60% ostial right common iliac artery 3. Successful INTAKE RN and stenting of left CONG with 2 overlapping stents. I attest to the content of the Intraoperative Record and any orders documented therein. Any exceptions are noted below.
[2016-11-20] MEDS ORDERED: ONDANSETRON INJ 2 MG/ML 2 ML VIAL IV PRN (16:30)
[2016-11-20] MEDS ORDERED: IPRATROPIUM BROMIDE/ALBUTEROL respimat INH INH PRN (16:30)
[2016-11-20] MEDS ORDERED: ACETAMINOPHEN 325 MG TAB PO PRN (16:30)
[2016-11-20] MEDS ORDERED: DOCUSATE SODIUM 100 MG CAP PO PRN (16:30)
[2016-11-20] MEDS ORDERED: POLYETHYLENE (MIRALAX) 17 GM PACK PO PRN (16:30)
[2016-11-20] MEDS ORDERED: IV FLUIDS COMPLETED PRN (16:45)
[2016-11-20 17:00] VITALS: BP 159/71; PULSE 74; TEMP 37; O2SAT 94; Ht 185.4 cm; Wt 90.5 kg
[2016-11-20] MEDS ORDERED: INSULIN HUMAN LISPRO (humaLOG) 100 UNITS/ML VIAL SC PRN (17:15)
[2016-11-20] MEDS ORDERED: GLUCOSE 10 TABS/TUBE PO PRN (17:15)
[2016-11-20] MEDS ORDERED: GLUCAGON FOR INJ 1 MG VIAL SQ PRN (17:15)
[2016-11-20] MEDS ORDERED: DEXTROSE 50% 50 ML SYR IV PRN (17:15)
[2016-11-20] MEDS ORDERED: GLUCOSE 40% GEL 15 GM TUBE PO PRN (17:15)
[2016-11-20 19:29] VITALS: BP 145/76; PULSE 94; TEMP 36.7; O2SAT 95
[2016-11-20] MEDS ORDERED: CLOPIDOGREL BISULFATE 300 MG TAB PO ONE (19:30)
[2016-11-20] MEDS ORDERED: ATORVASTATIN 40 MG TAB PO SCH (21:00)
[2016-11-20] MEDS: SODIUM CHLORIDE 0.9% 1000ML 1,000 ML IV SCH (22:41)
[2016-11-21] VITALS: BP 162/72; PULSE 92; TEMP 36.5; O2SAT 95
[2016-11-21 04:20] VITALS: BP 147/71; PULSE 80; TEMP 37.3; O2SAT 94
[2016-11-21 07:18] VITALS: BP 146/73; PULSE 70; TEMP 36.5; O2SAT 97
[2016-11-21 08:00] VITALS: O2SAT 97
[2016-11-21 08:41] LABS: HEMATOCRIT 31.2 % (42-52); MEAN CELL VOLUME 90.2 fL (80-100); MEAN CORPUSCULAR HEMOGLOBIN 29.8 pg (25-34); MEAN PLATELET VOLUME 9.9 fL (7.4-10.4); PLATELET COUNT 238 K/uL (130-400); RED BLOOD COUNT 3.46 M/uL (4.7-6.1); WHITE BLOOD COUNT 11.13 K/uL (4.8-10.8)
[2016-11-21] MEDS: SODIUM CHLORIDE 0.9% 1000ML 1,000 ML IV SCH (08:52)
[2016-11-21] MEDS ORDERED: ASPIRIN 81 MG ECTAB PO SCH (09:00)
[2016-11-21] MEDS ORDERED: FELODIPINE 5 MG TABCR PO SCH (09:00)
[2016-11-21] MEDS ORDERED: METOPROLOL SUCC 50MG EXT REL TAB PO SCH (09:00)
[2016-11-21] MEDS ORDERED: CLOPIDOGREL BISULFATE 75 MG TAB PO SCH (09:00)
[2016-11-21 09:13] LABS: BUN/CREATININE RATIO 28.8 (10-20); CALCIUM 8.3 mg/dl (8.5-10.1); CREATININE 1.8 mg/dl (0.60-1.40); POTASSIUM 4.5 mmol/L (3.5-5.1)
[2016-11-21] MEDS ORDERED: PLV75 PO (11:06)
--- NOTE | 2016-11-21 11:08 | Discharge Instructions ---
Discharge Instructions Procedure Procedure Date: Nov 21, 2016. Reason for Visit: Peripheral Artery Disease. Discharge Discharge Date: Nov 21, 2016. Discharge Diagnosis: PAD Last Recorded Wt (Kilograms): 90.500 Anesthesia Post Anesthesia Instructions: If you have had General Anesthesia or IV Sedation: * Do not drive today. * Resume driving when surgeon permits. * Do not make important decisions or sign legal documents today. * Call surgeon for: 1. Temperature elevations greater than 101 degrees F. 2. Uncontrollable pain. 3. Excessive bleeding. 4. Persistent nausea and vomiting. 5. Medication intolerance (nausea, vomiting or rash). * For nausea and vomiting use only clear liquids such as: tea, soda, bouillon until nausea subsides, then gradually increase diet as tolerated. * If you have any concerns or questions, call your surgeon's office. If physician is unavailable and it is an emergency, call 911 or go to the nearest emergency room. Instructions Activity Recommendations: limitations as noted below Recommended Home Diet: resume previous diet, diabetes diet Allergies: Coded Allergies: Iodine (Verified Adverse Reaction, Mild, GI SYMPTOMS, 11/20/16) Shellfish (Verified Adverse Reaction, Mild, VOMITING, 11/20/16) Follow Up Additional Instructions: ACTIVITY RECOMMENDATIONS: It is common to feel weak and fatigue for a few days. * Do not drive or operate any motorized equipment for the next three days. * Limit stair usage (2 or 3 trips a day only) for the next three days. * Do not lift anything heavier than 10 pounds for the next three days. * Do not engage in vigorous exercise or any sports for the next five days. * You may shower the day after your procedure, but do not immerse the area for three days. Cleanse the site gently with soap and water. SPECIAL CARE INSTRUCTIONS: * You may replace the pressure dressing or band-aid the morning after the procedure. * After your procedure, it is normal to have a small bruise or small lump at the site. Examine your site daily for any change in the bruise or lump, redness, swelling, drainage or numbness. Notify your doctor if any change. BLEEDING: * If there is a small amount of bleeding at the site, lie down and apply firm pressure with a clean cloth for ten minutes. When the bleeding stops, lie quietly keeping the procedure limb straight for six hours. Notify your doctor as soon as possible. * If the bleeding does not stop after ten minutes or if there is a large amount of bleeding or spurting, call 911 immediately. Continue to lie down and hold firm pressure until help arrives. SKIN IRRITATION: * You may experience some redness and/or swelling in the area where radiation was administered. If any skin irritation occurs, please contact your family physician. FOLLOW UP VISIT: Keep any scheduled doctor appointments. Follow-up with: Dr. Valero in 1 month. Mika Reyes Recommendations: Call your doctor if: * Temperature above 101 degrees * Pain not relieved by pain medicine ordered * There is increased drainage or redness from any incision * You have any unanswered questions or concerns. Your Doctors Instructions noted above were prepared by provider Manuel Valero. Patient Signature Section: Patient Instructions Signature Page Colt Callejas Patient (or Guardian) Signature/Date: I have read and understand the instructions given to me by my caregivers. Caregiver/RN/Doctor Signature/Date: The above-named patient and/or guardian has received patient instructions on this date. + Original Patient Signature Page (only) stays with chart. Please make copy for patient.
[2016-11-21 11:10] VITALS: BP 146/73; PULSE 70; TEMP 36.5; O2SAT 97
[2016-11-22] MEDS ORDERED: CLOP1TAB15 PO (09:26)
--- NOTE | 2016-11-22 20:07 | DISCHARGE SUMMARY ---
PRINCIPAL DIAGNOSES: 1. Peripheral artery disease, left chronic common iliac occlusion. 2. Healed lower extremity ulceration. 3. Insulin-dependent diabetes. 4. Chronic kidney disease. 5. Coronary artery disease status post prior percutaneous transluminal coronary angioplasty. PROCEDURES: 1. Bilateral peripheral angiogram. 2. Left common iliac stenting. HISTORY OF PRESENT ILLNESS: Mr. Callejas is a very pleasant 81-year-old man with a history of type 1 diabetes, hypertension, chronic kidney disease, obstructive sleep apnea as well as prostate cancer status post brachytherapy and bladder cancer status post radical resection on immunotherapy as well as PAD diagnosed in the setting of a slow healing lower extremity ulceration. The patient was initially seen at the wound clinic where has been followed for almost 2 years in the setting of slow to heal ulcerations. A lower extremity ultrasound was remarkable for monophasic waveforms throughout the left arterial system and an OSCAR of 0.5. He eventually underwent a CT scan which confirmed an ostial left common iliac occlusion. He was brought in on 11/20/2016 for bilateral lower extremity angiogram and possible intervention. HOSPITAL COURSE: The patient underwent successful left common iliac intervention via bilateral common femoral access. He ended up having 2 stents placed from his common iliac down into his external iliac with good angiographic result. Post-procedure, he had palpable common femoral and PT and DP pulses. He received a total of 135 mL of contrast interprocedure. He was aggressively pretreated with fluids before and after the procedure as well as treated for his dye allergy. On hospital day #2, he had stable renal function, stable blood counts and was feeling well, he was thought safe for discharge to home and will follow up with the wound clinic and my office in 2-3 weeks. The patient was started on Plavix and will continue on aspirin and Plavix for the next month. DISCHARGE MEDICATIONS: 1. Clopidogrel 75 mg daily. 2. Aspirin 81. 3. Atorvastatin 80. 4. Docusate 100 mg p.o. b.i.d. p.r.n. 5. Felodipine 10 mg q.a.m. 6. Insulin Humalog pump. 7. Combivent inhaler p.r.n. 8. Metoprolol succinate 100 mg q.a.m. and 50 mg at bedtime. 9. MiraLax p.r.n.
== END 2016-11-21 11:41 | disposition home or self-care (01) ==
LOC: C.ACU 08:12 → C.2T 16:29
PROVIDERS: ADMIT Internal Medicine Interventional Cardiology; ATTEND Internal Medicine Interventional Cardiology
DX: I73.9 Peripheral vascular disease, unspecified (principal); I74.5 Embolism and thrombosis of iliac artery; E10.3299 Type 1 diabetes mellitus with mild nonproliferative diabetic retinopathy without macular edema, unspecified eye; E10.21 Type 1 diabetes mellitus with diabetic nephropathy; N18.9 Chronic kidney disease, unspecified; E78.5 Hyperlipidemia, unspecified; I25.10 Atherosclerotic heart disease of native coronary artery without angina pectoris; G47.33 Obstructive sleep apnea (adult) (pediatric); Z98.61 Coronary angioplasty status; Z85.46 Personal history of malignant neoplasm of prostate; Z85.51 Personal history of malignant neoplasm of bladder; Z79.82 Long term (current) use of aspirin; Z85.828 Personal history of other malignant neoplasm of skin; Z96.41 Presence of insulin pump (external) (internal); Z87.440 Personal history of urinary (tract) infections; Z90.49 Acquired absence of other specified parts of digestive tract; Z96.642 Presence of left artificial hip joint; Z83.3 Family history of diabetes mellitus

== ENCOUNTER → 2016-12-03 | Outpatient (CLI) | payer BC ==
[~2016-12-03] MED LIST changes: -MGNO400 PO; +PLV75 PO; -RANITIDINE IV 50 MG in DEXTROSE 5% 100ML 100 ML IV PRN; -SODIUM CHLORIDE 0.9% 1000ML 1,000 ML IV ONE
--- NOTE | 2016-12-03 13:57 | DIAGNOSTIC IMAGING REPORT ---
LEFT LOWER EXTREMITY VENOUS DOPPLER CLINICAL HISTORY: Left leg pain and swelling. COMPARISON STUDY: Bilateral lower extremity venous Doppler May 24, 2008. TECHNIQUE: Sonography of the deep venous system of the left lower extremity was performed. Compression and augmentation were evaluated. FINDINGS: The left common femoral, superficial femoral and popliteal veins were compressible. Augmentation was normal. Flow was shown within the deep calf vessels. Note is made of left calf subcutaneous edema. IMPRESSION: No evidence of deep venous thrombus within the left lower extremity. Electronically signed by: Mike Krishnamurthy M.D. 12/03/2016 1:55 PM Dictated Date/Time: 12/03/2016 1:55 PM
== END | disposition home or self-care (01) ==
LOC: C.ULTRBC 13:20
PROVIDERS: ATTEND Physician Assistant
DX: M79.605 Pain in left leg (principal); R60.0 Localized edema

== ENCOUNTER → 2016-12-04 | Outpatient (CLI) | payer BC ==
--- NOTE | 2016-12-04 11:17 | DIAGNOSTIC IMAGING REPORT ---
(CHEST) THORAX WITHOUT CT DOSE: 1173.63 mGycm HISTORY: BLADDER CANCER-NO CONTRAST TECHNIQUE: Multiaxial CT images of the chest were performed without contrast. A dose lowering technique was utilized adhering to the principles of ALARA. COMPARISON: Chest CT 08/15/2016. FINDINGS: The central airways are patent. No pleural effusions. No pneumothorax. Moderate emphysema. A few scattered calcified granulomas are seen throughout the lungs. Stable nodularity along the left major fissure measuring up to 6 mm. Stable 8 mm solid nodule within the right middle lobe on image 156. Mild interstitial thickening and groundglass densities at the lung bases remains unchanged. This is likely chronic. Stable 8 mm nodular density within the base of the right lower lobe on image 205. No new pulmonary nodules identified. No suspicious lytic or blastic osseous lesions. Cholelithiasis. Multiple calcified splenic granulomas. The adrenal glands are unremarkable. Multiple calcified mediastinal lymph nodes. Normal caliber thoracic aorta. The heart is normal in size. Calcified plaque within the thoracic aorta and coronary arteries are again noted. A few mildly enlarged mediastinal lymph nodes remain stable. Dominant right peritracheal lymph node measures 2.0 x 1.1 cm. IMPRESSION: 1. Overall, no significant change compared to prior study. 2. A few scattered pulmonary nodules remain stable with the largest in the right lower lobe measuring 8 mm. Please refer to the chart below for recommended follow-up. 3. Emphysema and mild interstitial thickening which is likely chronic. 4. Evidence for prior granulomatous disease. 5. Stable prominent mediastinal lymph nodes. 6. Cholelithiasis. Please refer to below summary of Fleischner criteria recommendations for follow-up of incidental CT nodules (Clay Jordan, Guidelines for management of small pulmonary nodules detected on CT scans: A statement from the Fleischner Society, Radiology 237: [phone].) SOLID NODULES Solitary nodule size: <6 mm * Low risk patients: no follow-up needed * high risk patients: optional CT at 12 months Solitary nodule size: 6-8 mm * Low risk patients: follow-up at 6-12 months, then consider further follow-up at 18-24 months * high risk patients: initial follow-up CT at 6-12 months and then at 18-24 months if no change Solitary nodule size: >8 mm * either low or high risk patients - consider follow-up CT at 3 months, and/or CT-PET, and/or biopsy Multiple nodules size: <6 mm * Low risk patients: no routine follow-up * high risk patients: optional CT at 12 months Multiple nodules size: 6-8 mm * Low risk patients: follow-up at 3-6 months, then consider further follow-up at 18-24 months * high risk patients: follow-up at 3-6 months, then at 18-24 months if no change Multiple nodules size: >8 mm * Low risk patients: follow-up at 3-6 months, then consider further follow-up at 18-24 months * high risk patients: follow-up at 3-6 months, then at 18-24 months if no change Note: newly detected indeterminate nodule in persons 35 years of age or older. * Low risk patients: minimal or absent history of smoking and/or other known risk factors * high risk patients: history of smoking or of other known risk factors (e.g. first degree relative with lung cancer, or exposure to asbestos, radon, uranium) * if a nodule up to 8 mm is partly solid or is ground glass further follow-up is required after 24 months to exclude possible slow growing adenocarcinoma ([facility]) SUBSOLID NODULES Solitary pure ground-glass nodule * nodule size <6 mm - no CT follow-up required * nodule size >=6 mm - follow-up CT at 6-12 months, then every 2 years until 5 years Solitary part-solid nodule * nodule size <6 mm - no CT follow-up required * nodule size >=6 mm - follow-up CT at 3-6 months. If unchanged, and solid component remains <6 mm, then annual follow-up for 5 years Multiple subsolid nodules * nodule size <6 mm - follow-up CT at 3-6 months, consider further follow-up at 2 and 4 years if stable * nodule size >=6 mm - follow-up CT at 3-6 months, subsequent management based on the most suspicious nodule(s) Electronically signed by: Rigo Wagoner M.D. 12/04/2016 11:16 AM Dictated Date/Time: 12/04/2016 11:08 AM
--- NOTE | 2016-12-04 11:20 | DIAGNOSTIC IMAGING REPORT ---
ABD/PELVIS NO IV OR ORAL CONT HISTORY: 81 years-old Male BLADDER CANCER-NO CONTRAST follow-up exam. No new complaints or symptomatology. History of prior cystoprostatectomy with ileal conduit. COMPARISON: CT angiogram 10/11/2016 TECHNIQUE: Multiple axial CT images of the abdomen and pelvis were obtained without contrast. A dose lowering technique was used consistent with the principals of ODIN. FINDINGS: Calcified granulomas of the lung bases are noted. There is mild dependent bibasilar atelectasis, unchanged. No pneumoperitoneum is identified. The imaged inferior cardiac chambers are enlarged. There is decreased attenuation of the cardiac blood pool suggesting anemia. Coronary arterial calcifications are noted. Scattered calcifications throughout the splenic parenchyma compatible with prior hematogenous granulomatous disease. Layering gallstone noted within the gallbladder lumen, 5 mm. The liver and adrenal glands are unremarkable. There is severe diffuse pancreatic atrophy. 4 mm calcification of the inferior pole left kidney is again noted suggesting a vascular calcification, unchanged. Left collecting system and ureter are not dilated. There is chronic dilation of the right renal collecting system and right ureter with suggest an urothelial thickening, not as well seen on this noncontrast study. The degree of dilation appears unchanged from comparison. Prior cystoprostatectomy with right ileal conduit. There is extensive atherosclerotic plaquing of the abdominal aorta with left iliac stent graft noted. There is no bulky retroperitoneal adenopathy identified. Nonspecific mildly prominent peripancreatic and roger hepatis lymph nodes are seen measuring up to 9 mm in short axis, unchanged There is no bowel obstruction. There is decreased transit in the small bowel in the pelvis with intact anastomotic site. Moderate colonic stool burden is noted within the pelvis. The appendix is not seen and likely surgically absent. Hernia mesh wire is noted. Soft tissues are unremarkable. No suspicious lytic or blastic bony lesions are identified. Left hip arthroplasty noted. IMPRESSION: 1. Evidence of prior cystoprostatectomy with ileal conduit. There is chronic dilation of the right renal collecting system and right ureter with urothelial thickening. These findings appear stable from comparison study dated 10/11/2016. 2. No evidence of sclerotic bony metastasis or pathologic adenopathy. 3. Prior granulomatous disease. 4. Cholelithiasis. 5. Unchanged nonspecific mildly prominent peripancreatic and roger hepatis lymph nodes, likely reactive. The above report was generated using voice recognition software. It may contain grammatical, syntax or spelling errors. Electronically signed by: Alexys Jhaveri M.D. 12/04/2016 11:19 AM Dictated Date/Time: 12/04/2016 11:08 AM
== END | disposition home or self-care (01) ==
LOC: C.CTS 10:21
PROVIDERS: ATTEND Internal Medicine Hematology & Oncology
DX: C67.9 Malignant neoplasm of bladder, unspecified (principal); Z90.79 Acquired absence of other genital organ(s); K80.20 Calculus of gallbladder without cholecystitis without obstruction; R91.8 Other nonspecific abnormal finding of lung field; J43.9 Emphysema, unspecified

== ENCOUNTER → 2017-02-26 | Outpatient (CLI) | payer BC ==
[~2017-02-26] MED LIST changes: +METO100T44 PO; -METO1TAB69 PO
--- NOTE | 2017-02-26 11:41 | DIAGNOSTIC IMAGING REPORT ---
CHEST 2 VIEWS ROUTINE CLINICAL HISTORY: R05 CHRONIC COUGH COMPARISON STUDY: 08/24/2016 FINDINGS: The cardiac images so contours remain stable. There is no lobar consolidation. There is no failure. There are no pleural effusions. There is underlying essential thickening with a subpleural and lower lobe predominance.[ IMPRESSION: 1. Emphysema and suspected underlying interstitial lung disease 2. No evidence of acute parenchymal consolidation Electronically signed by: Cornell Morales M.D. 02/26/2017 11:39 AM Dictated Date/Time: 02/26/2017 11:37 AM
== END | disposition home or self-care (01) ==
LOC: C.RAD 11:14
PROVIDERS: ATTEND Family Medicine
DX: R05 Cough (principal); J43.9 Emphysema, unspecified

== ENCOUNTER → 2017-03-05 | Outpatient (CLI) | payer BC ==
--- NOTE | 2017-03-05 13:18 | DIAGNOSTIC IMAGING REPORT ---
CHEST 2 VIEWS ROUTINE HISTORY: Fever, cough COMPARISON: Chest 02/26/2017. FINDINGS: Mild diffuse interstitial thickening which is likely chronic. This is similar to the prior study. No new focal lung consolidations to suggest pneumonia. No pleural effusions. No pneumothorax. The heart is normal in size. Mild emphysema. IMPRESSION: No change in the chronic interstitial thickening. No new lung consolidations to suggest pneumonia. Electronically signed by: Rigo Wagoner M.D. 03/05/2017 1:17 PM Dictated Date/Time: 03/05/2017 1:15 PM
== END | disposition home or self-care (01) ==
LOC: C.RAD1850 11:57
PROVIDERS: ATTEND Family Medicine Hospice and Palliative Medicine
DX: C67.9 Malignant neoplasm of bladder, unspecified (principal); R05 Cough; R50.9 Fever, unspecified

== ENCOUNTER → 2017-03-05 | Outpatient (CLI) | payer BC ==
[2017-03-05 14:39] LABS: BASO % 0.1 %; BASO ABS # 0.02 K/uL (0-0.2); COMPLETE YES; EOS % 0.2 %; IG% 0.5 %; LYMPH % 9.9 %; LYMPH ABS # 1.78 K/uL (1.2-3.4); MEAN CELL VOLUME 87.1 fL (80-100); MEAN CORPUSCULAR HEMOGLOBIN 28.1 pg (25-34); MEAN CORPUSCULAR HGB CONC 32.3 g/dl (32-36); MEAN PLATELET VOLUME 11.5 fL (7.4-10.4); MONO % 12.7 %; NEUT % 76.6 %; PLATELET COUNT 306 K/uL (130-400); RED BLOOD COUNT 4.59 M/uL (4.7-6.1); WHITE BLOOD COUNT 17.91 K/uL (4.8-10.8)
[2017-03-05 15:00] LABS: BLOOD UREA NITROGEN 52 mg/dl (7-18); BUN/CREATININE RATIO 18.6 (10-20); CALCIUM 9.1 mg/dl (8.5-10.1); CARBON DIOXIDE 18 mmol/L (21-32); CHLORIDE 106 mmol/L (98-107); CREATININE 2.79 mg/dl (0.60-1.40); GLUCOSE 193 mg/dl (70-99); POTASSIUM 4.2 mmol/L (3.5-5.1); SODIUM 136 mmol/L (136-145)
== END | disposition home or self-care (01) ==
LOC: C.LAB 13:14
PROVIDERS: ATTEND Family Medicine Hospice and Palliative Medicine
DX: C67.9 Malignant neoplasm of bladder, unspecified (principal); R05 Cough; R50.9 Fever, unspecified

== ENCOUNTER → 2017-03-06 | Outpatient (CLI) | payer BC ==
--- NOTE | 2017-03-06 11:35 | DIAGNOSTIC IMAGING REPORT ---
CT SCAN OF THE ABDOMEN AND PELVIS WITHOUT IV CONTRAST CLINICAL HISTORY: Bladder cancer. COMPARISON STUDY: Abdominal CT dated 12/04/2016 and 04/21/2013. TECHNIQUE: CT scan of the abdomen and pelvis is performed from the lung bases to the proximal femora. Images are reviewed in the axial, sagittal, and coronal planes. IV contrast was not administered for this examination as per the referring clinician. Note that the examination is suboptimal without oral and IV contrast. A dose lowering technique was utilized adhering to the principles of ALARA. CT DOSE: 953.22 mGycm FINDINGS: Lung bases: The heart is top normal in size and without pericardial effusion. The coronary arteries are densely calcified. Advanced emphysema is observed. There are foci of bibasilar scarring versus atelectasis. Numerous calcified granulomas are seen. No airspace consolidation or pleural effusion is identified. A 5 mm noncalcified nodule is present at the right lung base on image #16. This is unchanged from 2014 and of doubtful significance. A small hiatal hernia is noted. Liver: The unenhanced liver is normal in size, contour, and attenuation. There are scattered calcified hepatic granulomas. There is no intrahepatic biliary ductal dilatation. Gallbladder: A calcified gallstone is identified. There is no CT evidence of acute cholecystitis. Spleen: Normal in size and attenuation. There are numerous calcified splenic granulomas. Pancreas: The unenhanced pancreas is atrophic and grossly unremarkable. Adrenal glands: Unremarkable. Kidneys: The unenhanced kidneys are atrophic. A 5 mm nonobstructing calculus is seen in the left kidney. No right renal calculi are identified. There is moderate right hydroureteronephrosis. The right ureter is distended to the level of the urostomy with no clear obstructing lesion seen. There is associated urothelial thickening involving the right renal pelvis and the right ureter with associated perinephric and periureteric stranding and fluid. No left-sided hydronephrosis is seen. There is no evidence of contour deforming renal mass lesion. Abdominal vasculature: The abdominal aorta is normal in course and caliber noting advanced atherosclerotic calcification. Stents are seen in the left common iliac and left external iliac arteries. Bowel: There are postoperative changes from a right lower quadrant urostomy. No bowel obstruction is seen. Bowel anastomoses are present in the pelvis. The appendix is not identified and reported surgically absent. Peritoneum: There is no intraperitoneal free air or abdominal ascites. Lymphadenopathy: None. Pelvic viscera: Evaluation of the pelvis is degraded by streak artifact from a left hip arthroplasty. The bladder and prostate are surgically absent. No pelvic lesion is seen. Skeletal structures: The skeletal structures are osteopenic. Mild lumbosacral spondylosis is observed. No lytic or blastic lesions are seen. A left hip arthroplasty is in place. IMPRESSION: 1. There is no evidence of metastatic disease in the abdomen or pelvis on this unenhanced examination. 2. There are postoperative changes from cystectomy and prostatectomy with right lower quadrant urostomy. No bowel obstruction is seen. 3. There is moderate right hydroureteronephrosis, with the ureter dilated to the level of the urostomy. This has only modestly increased from 12/04/2016. No clear cause of obstruction is identified. 4. There is urothelial thickening in the right renal pelvis and involving the right ureter with associated perinephric and periureteric stranding and fluid. This represents a change from previous. Correlate clinically for evidence of urinary tract infection. 5. Advanced emphysema. 6. Nonobstructing left renal calculus and cholelithiasis. 7. Additional findings as above. Electronically signed by: Arvind Rea M.D. 03/06/2017 11:33 AM Dictated Date/Time: 03/06/2017 11:24 AM
--- NOTE | 2017-03-06 11:58 | DIAGNOSTIC IMAGING REPORT ---
(CHEST) THORAX WITHOUT CT DOSE: 410.49 mGycm HISTORY: Bladder carcinoma BLADDER CANCER TECHNIQUE: Multiaxial CT images of the chest were performed without contrast. A dose lowering technique was utilized adhering to the principles of ALARA. COMPARISON: 12/04/2016 FINDINGS: baseline parenchymal emphysematous change. Slight peribronchial thickening considered stable. Several calcified as well as noncalcified mediastinal and/or hilar nodes. These are unchanged from the prior exam. Several small parenchymal nodules unchanged in size or configuration from the prior study. This includes a right midlung as well as left lower lobe regions. Heart small scattered calcified granulomas also stable. There are no new interval or progressive findings. IMPRESSION: 1. Unchanged exam compared to the prior study. 2. Stable baseline emphysematous change. 3. Several parenchymal nodules unchanged. 4. Noncalcified as well as calcified mediastinal and hilar adenopathy also stable. The above report was generated using voice recognition software. It may contain grammatical, syntax or spelling errors. Electronically signed by: Jose Pereyra M.D. 03/06/2017 11:57 AM Dictated Date/Time: 03/06/2017 11:53 AM
== END | disposition home or self-care (01) ==
LOC: C.CTS 10:26
PROVIDERS: ATTEND Internal Medicine Hematology & Oncology
DX: C67.9 Malignant neoplasm of bladder, unspecified (principal)

== ENCOUNTER → 2017-03-19 | Day surgery (SDC) | payer BC | END | disposition home or self-care (01) | LOC: C.ACU 10:48 | PROVIDERS: ATTEND Urology | DX: Z43.6 Encounter for attention to other artificial openings of urinary tract (principal); Z98.890 Other specified postprocedural states ==

== ENCOUNTER 2017-04-07 12:37 | Observation (INO) | payer BC ==
[~2017-04-07] VITALS: Ht 185.4 cm; Wt 80.9 kg
[2017-04-07] MEDS ORDERED: IPRATROPIUM BROMIDE NEB SOLN 0.02% 2.5 ML VIAL INH STA (12:45)
[2017-04-07] MEDS ORDERED: LEVALBUTEROL 1.25MG/0.5ML NEB INH STA (12:45)
[2017-04-07] MEDS ORDERED: SODIUM CHLORIDE 0.9% 1000ML 500 ML IV ONE (12:45)
[2017-04-07] MEDS ORDERED: CEFEPIME IV 2,000 MG in DEXTROSE 5% 100ML 100 ML IV STA (12:45)
[2017-04-07] MEDS ORDERED: CEFEPIME IV 2,000 MG in SYRINGE 7.5 ML IV ONE (13:15)
--- NOTE | 2017-04-07 13:24 | EMERGENCY ROOM VISIT NOTE ---
History Report prepared by Yulissa: Rosie Hunt Under the Supervision of: Dr. Arvind Chavez M.D. First contact with patient: 12:43 Chief Complaint: COUGH Stated Complaint: COUGH Nursing Triage Summary: pt reports fever on friday and . used expectorant. cough has flem not able to bring much up. History of Present Illness The patient is an 82 year old male who presents to the Emergency Room with complaints of persistent coughing starting 1.5 weeks ago. He feels congestion in his chest, but he is usually not able to cough anything up. The patient did have some fever 1.5 weeks ago prior to going to [facility]. His fever resolved after 1-2 days. While he was in [facility], he had some medication which was similar to Mucinex. He was able to cough up some of his congestion with this medication. He has not had any antibiotics for this cough. He returned from [facility] yesterday. He did not have difficulty on the plane ride. He is SOB. He feels more SOB when walking. He feels like he is not getting enough oxygen because of his congestion. He is not on oxygen at home. He has a history of emphysema. He has an inhaler which has not been helping. He was a smoker in the past. The patient's daughter had bronchitis and pneumonia around the time the patient started getting sick. He did have a flu shot this season. He denies any vomiting, rash, or chest pain. He currently feels thirsty. He has been drinking fluids. He has a urostomy which has been draining urine which is normal in appearance. He did have an instance of some darker urine several days ago. He is currently being treated for bladder cancer. He does not have a bladder. His sugars have been up and down recently. Source of History: patient, family Onset: 1.5 weeks ago Position: other (global) Quality: other (cough) Timing: other (persistent) Associated Symptoms: + fevers (resolved), + SOB, No chest pain, No vomiting , No rash Review of Systems See HPI for pertinent positives & negatives. A total of 10 systems reviewed and were otherwise negative. Past Medical & Surgical Medical Problems: (1) Asthmatic bronchitis with acute exacerbation (2) Bladder cancer (3) Diabetes mellitus type 1 (4) Hypoxia (5) PAD (peripheral artery disease) (6) Tachycardia Family History Diabetes mellitus Heart disease Hypertension Social History Smoking Status: Former Smoker Alcohol Use: occasionally Drug Use: none Marital Status: Housing Status: lives with family Occupation Status: retired Current/Historical Medications Scheduled Aspirin (Aspirin Ec), 81 MG PO QAM Atorvastatin (Lipitor), 80 MG PO HS Cholecalciferol (Vitamin D), 1 TAB PO DAILY Felodipine (Felodipine ER), 10 MG PO QAM Insulin Human Lispro (Insulin Humalog Pump ), 1 EA N/A UD Metoprolol Succ (Toprol Xl) (Toprol-Xl ), 100 MG PO QAM Metoprolol Succinate (Toprol Xl), 50 MG PO HS Scheduled PRN Docusate Sodium (Colace), 1 CAP PO BID PRN for Constipation Ipratropium-Albuterol (Combivent Respimat), 1 PUFF INH Q6 PRN for SOB/Wheezing Allergies Coded Allergies: Iodine (Verified Adverse Reaction, Mild, GI SYMPTOMS, 04/07/17) Shellfish (Verified Adverse Reaction, Mild, VOMITING, 04/07/17) Physical Exam Vital Signs Date Time Temp Pulse Resp B/P (MAP) Pulse Ox O2 Delivery O2 Flow Rate FiO2 04/07/17 14:11 91 22 99/61 100 Room Air 04/07/17 14:04 92 Room Air 04/07/17 13:30 90 18 93 Room Air 04/07/17 12:40 36.4 110 22 142/64 91 Room Air Physical Exam GENERAL: Patient is in no acute distress. HEENT: No acute trauma, normocephalic atraumatic, mucous membranes moist, no nasal congestion, no scleral icterus. NECK: No stridor, no adenopathy, no meningismus, trachea is midline. LUNGS: Somewhat diminished breath sounds. Breath sounds equal. Scattered wheezing. No crackles. HEART: Mildly tachycardic with a regular rhythm. No murmurs. ABDOMEN: Soft, nontender, bowel sounds positive, no hernias, no peritonitis. Urostomy present draining yellow urine. EXTREMITIES: No cyanosis, mild bilateral pedal edema, full range of motion of all the joints without pain or difficulty, no signs for acute trauma. NEUROLOGIC: Oriented x 3, no acute motor or sensory deficits, no focal weakness. SKIN: No rash, no jaundice, no diaphoresis. Medical Decision & Procedures ER Provider Diagnostic Interpretation: X-ray results as stated below per interpretation by me and the radiologist: SINGLE VIEW CHEST CLINICAL HISTORY: Sepsis. FINDINGS: 2 AP, portable, upright chest radiographs are compared to study dated 03/05/2017 and correlated with chest CT dated 03/06/2017. The examination is degraded by portable technique and patient rotation. The heart is mildly enlarged and there is atherosclerotic calcification of the thoracic aorta. The pulmonary vasculature is noncongested. Enlargement of the central pulmonary arteries suggest pulmonary artery hypertension. There are calcified mediastinal lymph nodes. Emphysema and chronic interstitial thickening are similar to previous. No airspace consolidation or large pleural effusion is identified. No pneumothorax is seen. The skeletal structures are osteopenic. The bony thorax is grossly intact. IMPRESSION: Cardiomegaly and emphysema with no acute cardiopulmonary abnormality. Electronically signed by: Arvind Rea M.D. 04/07/2017 2:26 PM Dictated Date/Time: 04/07/2017 2:24 PM Laboratory Results 04/07/17 13:05 Red Blood Count 4.64, Mean Corpuscular Volume 85.3, Mean Corpuscular Hemoglobin 28.0, Mean Corpuscular Hemoglobin Concent 32.8, Mean Platelet Volume 10.6, Neutrophils (%) (Auto) 75.5, Lymphocytes (%) (Auto) 13.6, Monocytes (%) (Auto) 9.8, Eosinophils (%) (Auto) 0.1, Basophils (%) (Auto) 0.1, Neutrophils # (Auto) 10.13, Lymphocytes # (Auto) 1.83, Monocytes # (Auto) 1.32, Eosinophils # (Auto) 0.02, Basophils # (Auto) 0.01 04/07/17 13:05 Test 04/07/17 13:05 04/07/17 13:14 04/07/17 13:38 04/07/17 13:55 White Blood Count 13.43 K/uL (4.8-10.8) Red Blood Count 4.64 M/uL (4.7-6.1) Hemoglobin 13.0 g/dL (14.0-18.0) Hematocrit 39.6 % (42-52) Mean Corpuscular Volume 85.3 fL (80-100) Mean Corpuscular Hemoglobin 28.0 pg (25-34) Mean Corpuscular Hemoglobin Concent 32.8 g/dl (32-36) Platelet Count 335 K/uL (130-400) Mean Platelet Volume 10.6 fL (7.4-10.4) Neutrophils (%) (Auto) 75.5 % Lymphocytes (%) (Auto) 13.6 % Monocytes (%) (Auto) 9.8 % Eosinophils (%) (Auto) 0.1 % Basophils (%) (Auto) 0.1 % Neutrophils # (Auto) 10.13 K/uL (1.4-6.5) Lymphocytes # (Auto) 1.83 K/uL (1.2-3.4) Monocytes # (Auto) 1.32 K/uL (0.11-0.59) Eosinophils # (Auto) 0.02 K/uL (0-0.5) Basophils # (Auto) 0.01 K/uL (0-0.2) RDW Standard Deviation 52.4 fL (36.4-46.3) RDW Coefficient of Variation 16.8 % (11.5-14.5) Immature Granulocyte % (Auto) 0.9 % Immature Granulocyte # (Auto) 0.12 K/uL (0.00-0.02) Prothrombin Time 10.3 SECONDS (9.0-12.0) Prothromb Time International Ratio 1.0 (0.9-1.1) Activated Partial Thromboplast Time 27.9 SECONDS (21.0-31.0) Partial Thromboplastin Ratio 1.1 Anion Gap 11.0 mmol/L (3-11) Est Creatinine Clear Calc Drug Dose 24.5 ml/min Estimated GFR () 25.8 Estimated GFR (Non- 22.3 BUN/Creatinine Ratio 23.9 (10-20) Calcium Level 8.8 mg/dl (8.5-10.1) Magnesium Level 1.8 mg/dl (1.8-2.4) Total Bilirubin 0.5 mg/dl (0.2-1) Aspartate Amino Transf (AST/SGOT) 15 U/L (15-37) Alanine Aminotransferase (ALT/SGPT) 17 U/L (12-78) Alkaline Phosphatase 169 U/L (45-117) Troponin I < 0.015 ng/ml (0-0.045) Total Protein 8.4 gm/dl (6.4-8.2) Albumin 2.9 gm/dl (3.4-5.0) Globulin 5.5 gm/dl (2.5-4.0) Albumin/Globulin Ratio 0.5 (0.9-2) Influenza Type A (RT-PCR) Neg for Influ A (NEG) Influenza Type B (RT-PCR) Neg for Influ B (NEG) Bedside Lactic Acid Venous 0.89 mmol/L (0.90-1.70) Urine Color YELLOW Urine Appearance TURBID (CLEAR) Urine pH 6.0 (4.5-7.5) Urine Specific [place] 1.020 (1.000-1.030) Urine Protein 3+ (NEG) Urine Glucose (UA) NEG (NEG) Urine Ketones TRACE (NEG) Urine Occult Blood 2+ (NEG) Urine Nitrite NEG (NEG) Urine Bilirubin NEG (NEG) Urine Urobilinogen NEG (NEG) Urine Leukocyte Esterase MODERATE (NEG) Urine RBC >30 /hpf (0-4) Urine WBC >30 /hpf (0-5) Urine Epithelial Cells 0-5 /lpf (0-5) Urine Bacteria 2+ (NEG) Test 04/07/17 15:31 Bedside Glucose 199 mg/dl (70-99) Laboratory results reviewed by me. Medications Administered Medications (Trade) Dose Ordered Sig/Sosa Route Start Time Stop Time Status Last Admin Dose Admin Sodium Chloride 500 ml @ 999 mls/hr Q31M ONCE IV 04/07/17 12:45 04/07/17 13:15 DC 04/07/17 13:43 999 MLS/HR Levalbuterol (Xopenex 1.25MG/ 0.5ML Neb) 1.25 mg NOW STAT INH 04/07/17 12:45 04/07/17 12:55 DC 04/07/17 13:28 1.25 MG Ipratropium [place] (Atrovent 0.02% 0.5MG/2.5ML Neb) 0.5 mg NOW STAT INH 04/07/17 12:45 04/07/17 12:55 DC 04/07/17 13:28 0.5 MG Cefepime HCl 2000 mg/Syringe 20 ml @ 5 mls/min TODAY@1315 ONCE IV 04/07/17 13:15 04/07/17 13:18 DC 04/07/17 13:50 5 MLS/MIN Sodium Chloride 500 ml @ 999 mls/hr Q31M STAT IV 04/07/17 13:56 04/07/17 14:26 DC 04/07/17 14:19 999 MLS/HR ECG Indication: SOB/dyspnea Rate (beats per minute): 97 Rhythm: sinus with SA Findings: other (no obvious acute MS, biphasic T wave anterior) Comparison ECG Date: 25-Aug-2016 Change: Biphasic T waves are new. ED Course 1244: The patient was evaluated in room C4. A complete history and physical exam was performed. 1245: Ipratropium [place] 0.5 mg INH, Levalbuterol 1.25 mg INH, NSS 500 ml @ 999 mls/hr IV. 1315: Cefepime HCl 2000 mg/Syringe 20 ml @ 5 mls/min IV. 1356: NSS 500 ml @ 999 mls/hr IV. 1433: Upon reexamination the patient is resting comfortably. I discussed results and treatment plan with the patient and his daughter. They verbalize agreement and understanding. The patient will be evaluated for further management. 1438: I discussed the patient's case with Dr. Dowell, [facility] hospitalist. The patient will be evaluated for further management. Medical Decision Differential diagnoses considered include sepsis, pneumonia, bronchitis, exacerbation of COPD, urinary infection, dehydration, electrolyte imbalance, influenza or flu-like illness, cellulitis. There is a mild leukocytosis at 13,000, this could be consistent with infection. No worrisome anemia. Renal panel testing shows acute on chronic renal failure. No hepatitis. Lactic acid level was not elevated making severe sepsis less likely. EKG shows a sinus rhythm with some biphasic T waves in the anterior leads, this finding was new. No evidence for acute MS. Cardiac enzyme testing times one is not consistent with acute cardiac injury. Influenza testing was negative. Chest film shows some COPD, no pneumonia or CHF. Blood cultures are pending. Urinalysis is suggestive of infection, urine culture and blood cultures are pending. The patient received IV saline. He was given a Xopenex Atrovent neb. He did receive a dose of IV cefepime as antibiotic coverage. The patient presents short of breath. He has had a fever. He is coughing and has a history of COPD. He appears to have some acute dehydration and mild acute renal failure. He may have a urinary infection. I suspect there also is an acute bronchitis present. Given all his findings, I do think a hospital stay is warranted. I spoke to the patient and case management. The on-call hospitalist was consulted. Medication Reconcilliation Current Medication List: was personally reviewed by me Blood Pressure Screening Patient's blood pressure: Elevated blood pressure Blood pressure disposition: Elevated BP felt to be situational Consults Time Called: 1436 Consulting Physician: Dr. Dowell [facility] hospitalist Returned Call: [phone] I discussed the patient's case with him. The patient will be evaluated for further management. Impression Primary Impression: SOB (shortness of breath) Additional Impressions: Bronchitis COPD exacerbation UTI (urinary tract infection) Dehydration Scribe Attestation The scribe's documentation has been prepared under my direction and personally reviewed by me in its entirety. I confirm that the note above accurately reflects all work, treatment, procedures, and medical decision making performed by me. Departure Information Dispostion Being Evaluated By Hospitalist Referrals Vick Almanzar M.D. (PCP) Patient Instructions My [facility] Problem Qualifiers
[2017-04-07 13:30] VITALS: PULSE 90; O2SAT 93
[2017-04-07] MEDS ORDERED: CHOL100010 PO (13:44)
[2017-04-07 13:46] LABS: HEMATOCRIT 39.6 % (42-52); MEAN CELL VOLUME 85.3 fL (80-100); MEAN CORPUSCULAR HGB CONC 32.8 g/dl (32-36); MEAN PLATELET VOLUME 10.6 fL (7.4-10.4); PLATELET COUNT 335 K/uL (130-400); RED CELL DISTRIBUTION WIDTH CV 16.8 % (11.5-14.5); RED CELL DISTRIBUTION WIDTH SD 52.4 fL (36.4-46.3); WHITE BLOOD COUNT 13.43 K/uL (4.8-10.8)
[2017-04-07 13:53] LABS: ALBUMIN 2.9 gm/dl (3.4-5.0); CALCIUM 8.8 mg/dl (8.5-10.1); CREATININE 2.54 mg/dl (0.60-1.40); POTASSIUM 4.4 mmol/L (3.5-5.1)
[2017-04-07 13:56] LABS: PTT PATIENT 27.9 SECONDS (21.0-31.0); TOTAL PROTEIN 8.4 gm/dl (6.4-8.2)
[2017-04-07 13:56] LABS: INFLUENZA A PCR Neg for Influ A (NEG); INFLUENZA B PCR Neg for Influ B (NEG)
[2017-04-07] MEDS ORDERED: SODIUM CHLORIDE 0.9% 500ML 500 ML IV STA (13:56)
--- NOTE | 2017-04-07 14:27 | DIAGNOSTIC IMAGING REPORT ---
SINGLE VIEW CHEST CLINICAL HISTORY: Sepsis. FINDINGS: 2 AP, portable, upright chest radiographs are compared to study dated 03/05/2017 and correlated with chest CT dated 03/06/2017. The examination is degraded by portable technique and patient rotation. The heart is mildly enlarged and there is atherosclerotic calcification of the thoracic aorta. The pulmonary vasculature is noncongested. Enlargement of the central pulmonary arteries suggest pulmonary artery hypertension. There are calcified mediastinal lymph nodes. Emphysema and chronic interstitial thickening are similar to previous. No airspace consolidation or large pleural effusion is identified. No pneumothorax is seen. The skeletal structures are osteopenic. The bony thorax is grossly intact. IMPRESSION: Cardiomegaly and emphysema with no acute cardiopulmonary abnormality. Electronically signed by: Arvind Rea M.D. 04/07/2017 2:26 PM Dictated Date/Time: 04/07/2017 2:24 PM
[2017-04-07 14:43] LABS: BASO % 0.1 %; BASO ABS # 0.01 K/uL (0-0.2); EOS % 0.1 %; EOS ABS # 0.02 K/uL (0-0.5); IG# 0.12 K/uL (0.00-0.02); LYMPH % 13.6 %; LYMPH ABS # 1.83 K/uL (1.2-3.4); MONO % 9.8 %; MONO ABS # 1.32 K/uL (0.11-0.59); NEUT % 75.5 %; NEUT ABS # 10.13 K/uL (1.4-6.5)
[2017-04-07] MEDS ORDERED: ONDANSETRON INJ 2 MG/ML 2 ML VIAL IV PRN (15:15)
[2017-04-07] MEDS ORDERED: MAGNESIUM HYDROXIDE SUSP 30 ML UDC PO PRN (15:15)
[2017-04-07] MEDS ORDERED: IPRATROPIUM BROMIDE/ALBUTEROL respimat INH INH PRN (15:15)
[2017-04-07] MEDS ORDERED: ALUMINUM/MAGNESIUM/SIMETH (MAALOX MAX) 30 ML UDC PO PRN (15:15)
[2017-04-07] MEDS ORDERED: ACETAMINOPHEN 325 MG TAB PO PRN (15:15)
[2017-04-07] MEDS ORDERED: POLYETHYLENE (MIRALAX) 17 GM PACK PO PRN (15:30)
[2017-04-07] MEDS ORDERED: DOCUSATE SODIUM 100 MG CAP PO PRN (15:30)
--- NOTE | 2017-04-07 15:40 | History and Physical ---
History & Physical Date & Time of Service: Apr 07, 2017 at 15:17 Chief Complaint: COUGH Primary Care Physician: Vick Almanzar M.D. History of Present Illness Source: patient, family (salty ), clinic records, hospital records Patient is a pleasant 82 y/o male, with PMHx of bladder cancer, prostate cancer , PAD, HLD, HTN, CAD, diastolic CHF, T1DM, diabetic neuropathy, and h/o PE in 2008, who presented to the ED because of productive cough x2 weeks. Patient admits to yellow sputum production and shortness of breath. He also admits to chest congestion but feels he is not coughing everything up. He has a h/o chronic bronchiectasis and asthma- he has followed w/ Dr. Jiang in the past. Denies any recent pulmonary follow-ups. He just got back from [facility] yesterday. He notes his symptoms started prior to leaving for [facility]. The reason he came to the ED was because symptoms are not getting any better. He denies pleuritic chest pain, calf pain, palpitations. Per records, patient was treated w/ Coumadin for 6 months in 2008 for PE- patient states they thought he had a clot initially, but it was then thought that he did not have a PE. +chronic bilateral lower extremity edema- patient/daughter notes his legs "look great" today. Patient denies any fever, chills, sweats, lightheadedness, dizziness, vision changes, CP, palpitations, wheezing, abdominal pain, nausea, vomiting, diarrhea, urinary symptoms, melena, numbness/tingling, weakness, muscle/joint pain, anxiety/depression, active bleeding, or new skin discoloration/changes. Past Medical/Surgical History Medical/Surgical History: Chronic bronchiectasis Asthma CAD HTN prostate cancer s/p brachytherapy bladder cancer s/p cystectomy HLD osteoarthritis T1DM diabetic neuropathy PE in 2008- treated with 6 months of Coumadin CKD stage III diastolic CHF PAD s/p left common iliac stenting exploratory laparotomy and lysis of adhesions in regards to a small-bowel obstruction, inguinal hernia repair laparoscopic incisional hernia repair appendectomy cholecystectomy Family History Diabetes mellitus Heart disease Hypertension Social History Smoking Status: Former Smoker Drug Use: none Marital Status: Housing status: lives with family Occupational Status: retired Immunizations History of Influenza Vaccine: Yes Influenza Vaccine Date: Feb 22, 2008 History of Tetanus Vaccine?: Yes History of Pneumococcal: Yes Pneumococcal Date: May 24, 2004 History of Hepatitis B Vaccine: Unknown Multi-Drug Resistant Organisms History of MDRO: No Allergies Coded Allergies: Iodine (Verified Adverse Reaction, Mild, GI SYMPTOMS, 04/07/17) Shellfish (Verified Adverse Reaction, Mild, VOMITING, 04/07/17) Home Medications Scheduled Aspirin (Aspirin Ec), 81 MG PO QAM Atorvastatin (Lipitor), 80 MG PO HS Cholecalciferol (Vitamin D), 1 TAB PO DAILY Felodipine (Felodipine ER), 10 MG PO QAM Insulin Human Lispro (Insulin Humalog Pump ), 1 EA N/A UD Metoprolol Succ (Toprol Xl) (Toprol-Xl ), 100 MG PO QAM Metoprolol Succinate (Toprol Xl), 50 MG PO HS Scheduled PRN Docusate Sodium (Colace), 1 CAP PO BID PRN for Constipation Ipratropium-Albuterol (Combivent Respimat), 1 PUFF INH Q6 PRN for SOB/Wheezing Physical Exam Vital Signs Date Time Temp Pulse Resp B/P (MAP) Pulse Ox O2 Delivery O2 Flow Rate FiO2 04/07/17 14:11 91 22 99/61 100 Room Air 04/07/17 14:04 92 Room Air 04/07/17 13:30 90 18 93 Room Air 04/07/17 12:40 36.4 110 22 142/64 91 Room Air General Appearance: no apparent distress Head: normocephalic, atraumatic Eyes: normal inspection, PERRL ENT: hearing grossly normal Neck: supple Respiratory/Chest: no respiratory distress, no accessory muscle use, + decreased breath sounds (throughout all lung [place] ) Cardiovascular: regular rate, rhythm Abdomen/GI: normal bowel sounds, non tender, soft, + pertinent finding (+ urostomy- draining clear/yellow urine ) Back: normal inspection Extremities/Musculoskelatal: no calf tenderness, + swelling (+trace pitting edema to bilateral lower extremities ) Neurologic/Psych: alert, normal mood/affect, oriented x 3 Skin: normal color, warm/dry, no rash Diagnostics Laboratory Results Results Past 24 Hours Test 04/07/17 13:05 04/07/17 13:14 04/07/17 13:38 04/07/17 13:55 Range/Units White Blood Count 13.43 4.8-10.8 K/uL Red Blood Count 4.64 4.7-6.1 M/uL Hemoglobin 13.0 14.0-18.0 g/dL Hematocrit 39.6 42-52 % Mean Corpuscular Volume 85.3 80-100 fL Mean Corpuscular Hemoglobin 28.0 25-34 pg Mean Corpuscular Hemoglobin Concent 32.8 32-36 g/dl Platelet Count 335 130-400 K/uL Mean Platelet Volume 10.6 7.4-10.4 fL Neutrophils (%) (Auto) 75.5 % Lymphocytes (%) (Auto) 13.6 % Monocytes (%) (Auto) 9.8 % Eosinophils (%) (Auto) 0.1 % Basophils (%) (Auto) 0.1 % Neutrophils # (Auto) 10.13 1.4-6.5 K/uL Lymphocytes # (Auto) 1.83 1.2-3.4 K/uL Monocytes # (Auto) 1.32 0.11-0.59 K/uL Eosinophils # (Auto) 0.02 0-0.5 K/uL Basophils # (Auto) 0.01 0-0.2 K/uL RDW Standard Deviation 52.4 36.4-46.3 fL RDW Coefficient of Variation 16.8 11.5-14.5 % Immature Granulocyte % (Auto) 0.9 % Immature Granulocyte # (Auto) 0.12 0.00-0.02 K/uL Prothrombin Time 10.3 9.0-12.0 SECONDS Prothromb Time International Ratio 1.0 0.9-1.1 Activated Partial Thromboplast Time 27.9 21.0-31.0 SECONDS Partial Thromboplastin Ratio 1.1 Sodium Level 135 136-145 mmol/L Potassium Level 4.4 3.5-5.1 mmol/L Chloride Level 106 98-107 mmol/L Carbon Dioxide Level 19 21-32 mmol/L Anion Gap 11.0 3-11 mmol/L Blood Urea Nitrogen 61 7-18 mg/dl Creatinine 2.54 0.60-1.40 mg/dl Est Creatinine Clear Calc Drug Dose 24.5 ml/min Estimated GFR () 25.8 Estimated GFR (Non- 22.3 BUN/Creatinine Ratio 23.9 10-20 Random Glucose 276 70-99 mg/dl Calcium Level 8.8 8.5-10.1 mg/dl Magnesium Level 1.8 1.8-2.4 mg/dl Total Bilirubin 0.5 0.2-1 mg/dl Aspartate Amino Transf (AST/SGOT) 15 15-37 U/L Alanine Aminotransferase (ALT/SGPT) 17 12-78 U/L Alkaline Phosphatase 169 45-117 U/L Troponin I < 0.015 0-0.045 ng/ml Total Protein 8.4 6.4-8.2 gm/dl Albumin 2.9 3.4-5.0 gm/dl Globulin 5.5 2.5-4.0 gm/dl Albumin/Globulin Ratio 0.5 0.9-2 Influenza Type A (RT-PCR) Neg for Influ A NEG Influenza Type B (RT-PCR) Neg for Influ B NEG Bedside Lactic Acid Venous 0.89 0.90-1.70 mmol/L Urine Color YELLOW Urine Appearance TURBID CLEAR Urine pH 6.0 4.5-7.5 Urine Specific [place] 1.020 1.000-1.030 Urine Protein 3+ NEG Urine Glucose (UA) NEG NEG Urine Ketones TRACE NEG Urine Occult Blood 2+ NEG Urine Nitrite NEG NEG Urine Bilirubin NEG NEG Urine Urobilinogen NEG NEG Urine Leukocyte Esterase MODERATE NEG Urine RBC >30 0-4 /hpf Urine WBC >30 0-5 /hpf Urine Epithelial Cells 0-5 0-5 /lpf Urine Bacteria 2+ NEG Microbiology Results 04/07/17 Blood Culture, Received Pending 04/07/17 Blood Culture, Received Pending 04/07/17 Urine Culture, Received Pending Diagnostic Radiology SINGLE VIEW CHEST CLINICAL HISTORY: Sepsis. FINDINGS: 2 AP, portable, upright chest radiographs are compared to study dated 03/05/2017 and correlated with chest CT dated 03/06/2017. The examination is degraded by portable technique and patient rotation. The heart is mildly enlarged and there is atherosclerotic calcification of the thoracic aorta. The pulmonary vasculature is noncongested. Enlargement of the central pulmonary arteries suggest pulmonary artery hypertension. There are calcified mediastinal lymph nodes. Emphysema and chronic interstitial thickening are similar to previous. No airspace consolidation or large pleural effusion is identified. No pneumothorax is seen. The skeletal structures are osteopenic. The bony thorax is grossly intact. IMPRESSION: Cardiomegaly and emphysema with no acute cardiopulmonary abnormality. Electronically signed by: Arvind Rea M.D. 04/07/2017 2:26 PM Dictated Date/Time: 04/07/2017 2:24 PM The status of this report is Signed. Draft = Not yet reviewed or approved by Radiologist. Signed = Reviewed and approved by Radiologist. Impression Assessment and Plan Patient is a pleasant 82 y/o male, with PMHx of bladder cancer, prostate cancer , PAD, HLD, HTN, CAD, diastolic CHF, T1DM, diabetic neuropathy, and h/o PE in 2008, who presented to the ED because of productive cough x2 weeks. Acute bronchitis w/ yellow sputum production, h/o asthma and chronic bronchiectasis: - Admit to med/sug - O2 protocol- currently on RA- does NOT have O2 at home - DuoNebs QID and PRN for SOB or wheezing - Incentive spirometer and flutter valve - Mucinex BID - Given IV Cefepime 2 g in ED; will continue w/ Levaquin tomorrow for productive cough, WBC of 13, and s/s for 2 weeks w/ no improvement - Lungs clear on exam- no steroids at tis time - BCx and sputum culture pending - Influenza negative JOANA on CKD stage IV/III, likely secondary to dehydration- baseline Cr 2.0- follows w/ Dr. Reilly: - Gentle IV NSS @ 75 ml/hr - Hold nephrotoxic agents and renally dose medications as appropriate Abnormal UA: - UCx pending- IV Levaquin as above T1DM w/ hyperglycemia, diabetic neuropathy: - Continue insulin pump - BSG ACHS and ISS - Last hgbA1c 6.9% in 07/2016- will recheck tomorrow AM - Daughter/patient note sugars have been high since being on vacation- daughter states normally he has great sugar control HLD, HTN, CAD, diastolic CHF- follows w/ Dr. Valero: Continue ASA 81 mg daily, Lipitor 80 mg HS, Felodipine 10 mg daily, Toprol XL 100 mg QAM and 50 mg HS PAD s/p common iliac stenting: Continue ASA and Lipitor Bladder cancer s/p cystectomy, prostate cancer- follows w/ Dr. Chinchilla h/o PE in 2008: - If s/s do not improve, could consider CT to r/o PE given recent travel, h/o PE , malignancy and tachycardia- holding for now due to kidney function, no hypoxia , productive cough, no pleuritic chest pain, no calf pain, s/s started prior to travel GI prophylaxis: Protonix daily DVT prophylaxis: Heparin SQ BID Code Status: LEVEL I, FULL Dispo: From home- PT/OT and CM consulted i personally examined pt and verified all [place] points w T [place] PAC cough. sob. ongoing for weeks vitals noted nad breathing unlabored but diminished air entry, no accessory muscles sob - likely infectious. agree w plan as above, anticipate improvement. Level of Care Med/Surg Resuscitation Status FULL RESUSCITATION VTE Prophylaxis VTE Risk Assessment Done? Y/N: Yes Risk Level: Moderate Given or contraindicated: Unfractionated heparin SQ, T.E.D. Stockings, SCD's
[2017-04-07] MEDS ORDERED: INSULIN ASPART 100 UNITS/ML 3 ML PEN SC SCH (16:00)
[2017-04-07 17:24] VITALS: O2SAT 100; BMI 23.5
[2017-04-07] MEDS ORDERED: INSULIN HUMAN LISPRO (humaLOG) 100 UNITS/ML VIAL SC PRN (17:45)
[2017-04-07] MEDS ORDERED: DEXTROSE 50% 50 ML SYR IV PRN (18:00)
[2017-04-07] MEDS ORDERED: GLUCOSE 10 TABS/TUBE PO PRN (18:00)
[2017-04-07] MEDS ORDERED: GLUCAGON FOR INJ 1 MG VIAL SQ PRN (18:00)
[2017-04-07] MEDS ORDERED: GLUCOSE 40% GEL 15 GM TUBE PO PRN (18:00)
[2017-04-07] MEDS ORDERED: IV FLUIDS COMPLETED PRN (18:30)
[2017-04-07 19:24] VITALS: PULSE 90; O2SAT 93
[2017-04-07] MEDS: LEVALBUTEROL 1.25MG/0.5ML NEB INH SCH (19:24)
[2017-04-07] MEDS ORDERED: LEVOFLOXACIN CONSULT ACTIVE PRN (19:45)
[2017-04-07] MEDS: SODIUM CHLORIDE 0.9% 1000ML 1,000 ML IV SCH (19:55)
[2017-04-07] MEDS ORDERED: LEVOFLOXACIN / D5W 500 MG in PREMIXED IN D5W 100 ML IV SCH (20:00)
[2017-04-07] MEDS ORDERED: ATORVASTATIN 40 MG TAB PO SCH (21:00)
[2017-04-07] MEDS ORDERED: METOPROLOL SUCC 50MG EXT REL TAB PO SCH (21:00)
[2017-04-07 21:55] VITALS: BP 156/68; PULSE 83
[2017-04-07] MEDS: GUAIFENESIN 600 MG TABCR PO SCH (22:06)
[2017-04-07] MEDS: HEPARIN SOD 5000 UNIT/0.5 ML CARP SQ SCH (22:12)
[2017-04-07 23:26] VITALS: BP 130/69; PULSE 87; TEMP 36.8; O2SAT 91
[2017-04-08 01:41] VITALS: PULSE 77; O2SAT 90
[2017-04-08] MEDS: LEVALBUTEROL 1.25MG/0.5ML NEB INH SCH ×3 (01:41→14:28)
[2017-04-08 06:39] LABS: HEMATOCRIT 33.5 % (42-52); HEMOGLOBIN 10.7 g/dL (14.0-18.0); MEAN CELL VOLUME 84.8 fL (80-100); MEAN CORPUSCULAR HEMOGLOBIN 27.1 pg (25-34); MEAN CORPUSCULAR HGB CONC 31.9 g/dl (32-36); MEAN PLATELET VOLUME 10.1 fL (7.4-10.4); PLATELET COUNT 210 K/uL (130-400); RED CELL DISTRIBUTION WIDTH CV 16.9 % (11.5-14.5); RED CELL DISTRIBUTION WIDTH SD 52.5 fL (36.4-46.3); WHITE BLOOD COUNT 7.31 K/uL (4.8-10.8)
[2017-04-08 07:06] LABS: CALCIUM 8.4 mg/dl (8.5-10.1); CREATININE 2.24 mg/dl (0.60-1.40); POTASSIUM 4.6 mmol/L (3.5-5.1)
[2017-04-08 07:10] VITALS: BP 150/78; PULSE 86; TEMP 36.7; O2SAT 92
[2017-04-08 07:17] VITALS: PULSE 75; O2SAT 94
[2017-04-08 07:40] LABS: HEMOGLOBIN A1C 8.3 % (4.5-5.6)
[2017-04-08] MEDS ORDERED: ASPIRIN 81 MG ECTAB PO SCH (08:00)
[2017-04-08] MEDS ORDERED: FELODIPINE 5 MG TABCR PO SCH (08:00)
[2017-04-08] MEDS ORDERED: PANTOprazole SOD 40 MG TAB PO SCH (08:00)
[2017-04-08] MEDS ORDERED: METOPROLOL SUCC 50MG EXT REL TAB PO SCH (08:00)
[2017-04-08] MEDS ORDERED: CHOLECALCIFEROL 1000 INTER.UNIT TAB PO SCH (08:00)
[2017-04-08] MEDS: GUAIFENESIN 600 MG TABCR PO SCH (08:02)
[2017-04-08] MEDS: SODIUM CHLORIDE 0.9% 1000ML 1,000 ML IV SCH (08:06)
[2017-04-08] MEDS: HEPARIN SOD 5000 UNIT/0.5 ML CARP SQ SCH (08:08)
[2017-04-08] MEDS ORDERED: SODIUM CHLORIDE 0.9% 500ML 500 ML IV ONE (08:30)
--- NOTE | 2017-04-08 10:10 | Progress Note ---
Subjective Date of Service: Apr 08, 2017. Problem List Medical Problems: (1) Anterior epistaxis Status: Acute (2) Bronchitis Status: Acute (3) COPD exacerbation Status: Acute (4) Cough Status: Acute (5) Dehydration Status: Acute (6) DKA (diabetic ketoacidoses) Status: Acute (7) Small bowel obstruction Status: Acute (8) SOB (shortness of breath) Status: Acute (9) UTI (urinary tract infection) Status: Acute Objective Vital Signs Date Time Temp Pulse Resp B/P (MAP) Pulse Ox O2 Delivery O2 Flow Rate FiO2 04/08/17 08:15 Room Air 04/08/17 07:17 75 16 94 Room Air 04/08/17 07:10 36.7 86 20 150/78 (102) 92 Room Air 04/08/17 01:41 77 18 90 Room Air 04/08/17 00:00 Room Air 04/07/17 23:26 36.8 87 21 130/69 (89) 91 Room Air 04/07/17 21:55 83 156/68 (97) 04/07/17 19:24 90 18 93 Room Air 04/07/17 17:24 100 Room Air 04/07/17 17:00 91 20 120/69 100 04/07/17 16:00 88 22 153/78 100 Room Air 04/07/17 14:11 91 22 99/61 100 Room Air 04/07/17 14:04 92 Room Air 04/07/17 13:30 90 18 93 Room Air 04/07/17 12:40 36.4 110 22 142/64 91 Room Air Laboratory Results Last 24 Hours Test 04/07/17 13:05 04/07/17 13:14 04/07/17 13:38 04/07/17 13:55 White Blood Count 13.43 K/uL Red Blood Count 4.64 M/uL Hemoglobin 13.0 g/dL Hematocrit 39.6 % Mean Corpuscular Volume 85.3 fL Mean Corpuscular Hemoglobin 28.0 pg Mean Corpuscular Hemoglobin Concent 32.8 g/dl Platelet Count 335 K/uL Mean Platelet Volume 10.6 fL Neutrophils (%) (Auto) 75.5 % Lymphocytes (%) (Auto) 13.6 % Monocytes (%) (Auto) 9.8 % Eosinophils (%) (Auto) 0.1 % Basophils (%) (Auto) 0.1 % Neutrophils # (Auto) 10.13 K/uL Lymphocytes # (Auto) 1.83 K/uL Monocytes # (Auto) 1.32 K/uL Eosinophils # (Auto) 0.02 K/uL Basophils # (Auto) 0.01 K/uL RDW Standard Deviation 52.4 fL RDW Coefficient of Variation 16.8 % Immature Granulocyte % (Auto) 0.9 % Immature Granulocyte # (Auto) 0.12 K/uL Prothrombin Time 10.3 SECONDS Prothromb Time International Ratio 1.0 Activated Partial Thromboplast Time 27.9 SECONDS Partial Thromboplastin Ratio 1.1 Sodium Level 135 mmol/L Potassium Level 4.4 mmol/L Chloride Level 106 mmol/L Carbon Dioxide Level 19 mmol/L Anion Gap 11.0 mmol/L Blood Urea Nitrogen 61 mg/dl Creatinine 2.54 mg/dl Est Creatinine Clear Calc Drug Dose 24.5 ml/min Estimated GFR () 25.8 Estimated GFR (Non- 22.3 BUN/Creatinine Ratio 23.9 Random Glucose 276 mg/dl Calcium Level 8.8 mg/dl Magnesium Level 1.8 mg/dl Total Bilirubin 0.5 mg/dl Aspartate Amino Transf (AST/SGOT) 15 U/L Alanine Aminotransferase (ALT/SGPT) 17 U/L Alkaline Phosphatase 169 U/L Troponin I < 0.015 ng/ml Total Protein 8.4 gm/dl Albumin 2.9 gm/dl Globulin 5.5 gm/dl Albumin/Globulin Ratio 0.5 Influenza Type A (RT-PCR) Neg for Influ A Influenza Type B (RT-PCR) Neg for Influ B Bedside Lactic Acid Venous 0.89 mmol/L Urine Color YELLOW Urine Appearance TURBID Urine pH 6.0 Urine Specific [place] 1.020 Urine Protein 3+ Urine Glucose (UA) NEG Urine Ketones TRACE Urine Occult Blood 2+ Urine Nitrite NEG Urine Bilirubin NEG Urine Urobilinogen NEG Urine Leukocyte Esterase MODERATE Urine RBC >30 /hpf Urine WBC >30 /hpf Urine Epithelial Cells 0-5 /lpf Urine Bacteria 2+ Test 04/07/17 15:31 04/07/17 18:14 04/07/17 20:25 04/08/17 00:07 Bedside Glucose 199 mg/dl 105 mg/dl 154 mg/dl Procalcitonin 0.23 ng/ml Test 04/08/17 06:27 04/08/17 07:41 White Blood Count 7.31 K/uL Red Blood Count 3.95 M/uL Hemoglobin 10.7 g/dL Hematocrit 33.5 % Mean Corpuscular Volume 84.8 fL Mean Corpuscular Hemoglobin 27.1 pg Mean Corpuscular Hemoglobin Concent 31.9 g/dl RDW Standard Deviation 52.5 fL RDW Coefficient of Variation 16.9 % Platelet Count 210 K/uL Mean Platelet Volume 10.1 fL Sodium Level 141 mmol/L Potassium Level 4.6 mmol/L Chloride Level 114 mmol/L Carbon Dioxide Level 20 mmol/L Anion Gap 7.0 mmol/L Blood Urea Nitrogen 56 mg/dl Creatinine 2.24 mg/dl Est Creatinine Clear Calc Drug Dose 27.7 ml/min Estimated GFR () 30.1 Estimated GFR (Non- 26.0 BUN/Creatinine Ratio 24.9 Random Glucose 165 mg/dl Estimated Average Glucose 192 mg/dl Hemoglobin A1c 8.3 % Calcium Level 8.4 mg/dl Bedside Glucose 151 mg/dl Assessment and Plan Patient is a pleasant 82 y/o male, with PMHx of bladder cancer, prostate cancer , PAD, HLD, HTN, CAD, diastolic CHF, T1DM, diabetic neuropathy, and h/o PE in 2008, who presented to the ED because of productive cough x2 weeks. Acute bronchitis w/ yellow sputum production, h/o asthma and chronic bronchiectasis: may consider bactrim double strength PO BID as an outpatient for 7 days Patient may be a candidate for PCP prohylaxis as an outpatient. will defer to Primary care. 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 Reilly: - Gentle IV NSS @ 75 ml/hr - Hold nephrotoxic agents and renally dose medications as appropriate Abnormal UA: - UCx pending- IV Levaquin as above T1DM w/ hyperglycemia, diabetic neuropathy: - Continue insulin pump - BSG ACHS and ISS - Last hgbA1c 6.9% in 07/2016- will recheck tomorrow AM - Daughter/patient note sugars have been high since being on vacation- daughter states normally he has great sugar control HLD, HTN, CAD, diastolic CHF- follows w/ Dr. Valero: Continue ASA 81 mg daily, Lipitor 80 mg HS, Felodipine 10 mg daily, Toprol XL 100 mg QAM and 50 mg HS PAD s/p common iliac stenting: Continue ASA and Lipitor Bladder cancer s/p cystectomy, prostate cancer- follows w/ Dr. Chinchilla h/o PE in 2008: - If s/s do not improve, could consider CT to r/o PE given recent travel, h/o PE , malignancy and tachycardia- holding for now due to kidney function, no hypoxia , productive cough, no pleuritic chest pain, no calf pain, s/s started prior to travel GI prophylaxis: Protonix daily DVT prophylaxis: Heparin SQ BID Code Status: LEVEL I, FULL Dispo: From home- PT/OT and CM consulted i personally examined pt and verified all saldana points w T Murarik PAC cough. sob. ongoing for weeks vitals noted nad breathing unlabored but diminished air entry, no accessory muscles sob - likely infectious. agree w plan as above, anticipate improvement.
[2017-04-08 11:36] VITALS: Ht 185.4 cm; Wt 80.9 kg
[2017-04-08 14:31] VITALS: PULSE 84; O2SAT 93
[2017-04-08] MEDS ORDERED: SULF800T23 PO (14:40)
--- NOTE | 2017-04-08 14:42 | Discharge Instructions ---
Discharge Instructions Date of Service Apr 08, 2017. Admission Reason for Admission: Asthmatic Bronchitis With Acute Excerbation Discharge Discharge Diagnosis / Problem: Asthma Bronchitis Discharge Goals Goal(s): Decrease discomfort, Improve function Activity Recommendations Activity Limitations: resume your previous activity . Instructions / Follow-Up Instructions / Follow-Up F/U with PCP in 1-2 weeks Current Hospital Diet Patient's current hospital diet: AHA Diet (Heart Healthy), Diabetes Type 1 Diet Discharge Diet Recommended Diet: AHA Diet (Heart Healthy), Diabetes Type 1 Diet Pending Studies Studies pending at discharge: no Laboratory Results Hemoglobin A1c Test 04/08/17 06:27 Range/Units Estimated Average Glucose 192 mg/dl Hemoglobin A1c 8.3 H 4.5-5.6 % Medical Emergencies . Who to Call and When: Medical Emergencies: If at any time you feel your situation is an emergency, please call 911 immediately. . Non-Emergent Contact Non-Emergency issues call your: Primary Care Provider Call Non-Emergent contact if: you have any medication questions . . "Provider Documentation" section prepared by Dandre Marquez. . VTE Core Measure Inpt VTE Proph given/why not?: Unfractionated heparin [place], TVíctor Joseph, SCD 's
[2017-04-08 15:04] VITALS: BP 150/78; PULSE 84; TEMP 36.7; O2SAT 93
[2017-04-08] MEDS ORDERED: LEVOFLOXACIN 250MG / D5W IV SCH (20:00)
--- NOTE | 2017-04-09 07:47 | Discharge Summary ---
Discharge Summary Date of Service Apr 09, 2017. Discharge Summary Admission Date: Apr 07, 2017 at 15:17 Discharge Date: Apr 08, 2017 Discharge Disposition: Home Principal Diagnosis: Acute Bronchitis Immunizations: Have You Had Influenza Vaccine: Yes Influenza Vaccine Date: Feb 22, 2008 History of Tetanus Vaccine?: Yes History of Pneumococcal: Yes Pneumococcal Date: May 24, 2004 History of Hepatitis B Vaccine: Unknown Medication Reconciliation New Medications: Sulfa/Trimethoprim (Bactrim Ds 800MG/160MG) Tab 1 TAB PO DAILY for 7 Days, #7 TAB Continued Medications: Aspirin (Aspirin Ec) 81 Mg Tab 81 MG PO QAM Atorvastatin (Lipitor) 80 Mg Tab 80 MG PO HS, TAB Cholecalciferol (Vitamin D) 1,000 Unit Tab 1 TAB PO DAILY Docusate Sodium (Colace) 100 Mg Cap 1 CAP PO BID PRN for Constipation for 15 Days, #30 CAP Felodipine (Felodipine ER) 10 Mg Tabcr 10 MG PO QAM Insulin Human Lispro (Insulin Humalog Pump ) Pump 1 EA N/A UD, EA Ipratropium-Albuterol (Combivent Respimat) 1 Aer Aer 1 PUFF INH Q6 PRN for SOB/Wheezing, INH 1 PUFF INH 1-2 X DAILY Metoprolol Succ (Toprol Xl) (Toprol-Xl ) 100 Mg Tabcr 100 MG PO QAM, TAB Metoprolol Succinate (Toprol Xl) 50 Mg Tabcr 50 MG PO HS, #30 TAB Discharge Exam Review of Systems: Constitutional: No fever, No chills Respiratory: + cough, No sputum, No wheezing Cardiovascular: No chest pain, No orthopnea Abdomen: No pain, No nausea Neurologic: No memory loss, No paralysis Psychiatric: No depression symptoms Endocrine: No fatigue Hematologic / Lymphatic: No abnormal bleeding/bruising Integumentary: No rash, No itch Physical Exam: General Appearance: WD/WN, no apparent distress Eyes: normal inspection ENT: normal ENT inspection Neck: supple, no adenopathy Respiratory/Chest: chest non-tender, lungs clear, normal breath sounds Cardiovascular: regular rate, rhythm Abdomen / GI: normal bowel sounds, non tender, soft Extremities: normal inspection, + pedal edema Neurologic/Psychiatric: alert, oriented x 3 Skin: normal color, warm/dry Lymphatic: no adenopathy Hospital Course Patient is a pleasant 82 y/o male, with PMHx of bladder cancer, prostate cancer , PAD, HLD, HTN, CAD, diastolic CHF, T1DM, diabetic neuropathy, and h/o PE in 2008, who presented to the ED because of productive cough x2 weeks. Acute bronchitis w/ yellow sputum production, h/o asthma and chronic bronchiectasis: will give bactrim double strength PO daily as an outpatient for 7 days Patient may be a candidate for PCP prohylaxis as an outpatient. will defer to Primary care. 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 Reilly: - Gentle IV NSS @ 75 ml/hr was given - Hold nephrotoxic agents and renally dose medications as appropriate T1DM w/ hyperglycemia, diabetic neuropathy: - Continue insulin pump - BSG ACHS and ISS - Last hgbA1c 6.9% in 07/2016- will recheck tomorrow AM - Daughter/patient note sugars have been high since being on vacation- daughter states normally he has great sugar control HLD, HTN, CAD, diastolic CHF- follows w/ Dr. Valero: Continue ASA 81 mg daily, Lipitor 80 mg HS, Felodipine 10 mg daily, Toprol XL 100 mg QAM and 50 mg HS PAD s/p common iliac stenting: Continue ASA and Lipitor Bladder cancer s/p cystectomy, prostate cancer- follows w/ Dr. Chinchilla h/o PE in 2008: - If s/s do not improve, could consider CT to r/o PE given recent travel, h/o PE , malignancy and tachycardia- holding for now due to kidney function, no hypoxia , productive cough, no pleuritic chest pain, no calf pain, s/s started prior to travel GI prophylaxis: Protonix daily DVT prophylaxis: Heparin SQ BID Code Status: LEVEL I, FULL Total Time Spent: Greater than 30 minutes This includes examination of the patient, discharge planning, medication reconciliation, and communication with other providers. Discharge Instructions Please refer to the electronic Patient Visit Report (Discharge Instructions) for additional information.
[2017-05-13] MEDS ORDERED: VNTHFA/IN INH (10:02)
[2017-05-13] MEDS ORDERED: FLVHFA110 INH (10:32)
[2017-05-19] MEDS ORDERED: CEPH500C2 PO (08:31)
[2017-05-19] MEDS ORDERED: HYDR-5688 PO (08:31)
== END 2017-04-08 15:25 | disposition home or self-care (01) ==
LOC: C.EDB 12:38 → C.4E 15:17 → ENRESERV 16:47
PROVIDERS: ADMIT Family Medicine; ATTEND Internal Medicine Sports Medicine
DX: J40 Bronchitis, not specified as acute or chronic (principal); N18.4 Chronic kidney disease, stage 4 (severe); E10.65 Type 1 diabetes mellitus with hyperglycemia; E10.40 Type 1 diabetes mellitus with diabetic neuropathy, unspecified; R06.02 Shortness of breath; J44.1 Chronic obstructive pulmonary disease with (acute) exacerbation; N39.0 Urinary tract infection, site not specified; E86.0 Dehydration; E10.9 Type 1 diabetes mellitus without complications; I73.9 Peripheral vascular disease, unspecified; I10 Essential (primary) hypertension; E78.00 Pure hypercholesterolemia, unspecified; I25.10 Atherosclerotic heart disease of native coronary artery without angina pectoris; I50.30 Unspecified diastolic (congestive) heart failure; Z85.46 Personal history of malignant neoplasm of prostate; Z85.51 Personal history of malignant neoplasm of bladder; Z90.6 Acquired absence of other parts of urinary tract; Z83.3 Family history of diabetes mellitus; Z87.891 Personal history of nicotine dependence; Z82.49 Family history of ischemic heart disease and other diseases of the circulatory system; Z79.82 Long term (current) use of aspirin; Z96.41 Presence of insulin pump (external) (internal)

== ENCOUNTER → 2017-05-08 | Outpatient (CLI) | payer BC ==
[~2017-05-08] MED LIST changes: +CHOL100010 PO; +FLVHFA110 INH; -PLV75 PO; -POLY335019 PO; +VNTHFA/IN INH
--- NOTE | 2017-05-08 15:06 | DIAGNOSTIC IMAGING REPORT ---
(CHEST) THORAX WITHOUT CLINICAL HISTORY: 82 years-old Male presenting with BLADDER CA. TECHNIQUE: Multidetector CT imaging of the chest was performed without the use of intravenous contrast. IV contrast: None. A dose lowering technique was used consistent with the principles of ALARA (as low as reasonably achievable). COMPARISON: 03/06/2017 and numerous additional priors dating back to 08/31/2011. CT DOSE (mGy.cm): The estimated cumulative dose is 1160.91 mGy.cm. FINDINGS: Glass Pulverizer Equipment Operator topogram: Total left hip arthroplasty. Postsurgical changes in the pelvis. On soft tissue windows, normal thyroid and thoracic inlet. Few prominent prevascular and precarinal lymph nodes, possibly reactive. Calcified mediastinal lymph nodes also noted in the subcarinal region suggesting prior granulomatous infection Evaluation of the jessika limited without intravenous contrast. Atherosclerosis of the aorta. Normal heart size. Coronary artery and aortic valve calcification. No pericardial or pleural effusion. Parenchymal calcifications in the spleen suggest chronic granulomatous infection. Cholelithiasis. Small hiatal hernia. On lung windows, emphysema. Peripheral reticulation in the lungs noted. Solid 8 mm nodule in the right middle lobe (series 4 image 198), unchanged. Solid subpleural/peripheral 6 mm nodule in the right lower lobe (series 4 image 234), slightly previously 5 mm. Several smaller solid fissural nodules noted in the superior segment of the right lower lobe (series 4 images 162 and 166). Several calcified granulomas noted bilaterally. Central airways patent. On bone windows, degenerative changes of the spine. IMPRESSION: 1. Multiple solid pulmonary nodules in the right lung, the majority of which has been stable since 2011 consistent with a benign etiology. The 6 mm right lower lobe nodule was not visualized in 2011 as this region was affected by extensive consolidation. However, the nodule is unchanged at least since 06/28/2016. No new nodule. 2. Emphysema. 3. Peripheral reticulation could imply atelectasis, fibrotic change, or postinfectious/postinflammatory change. 4. Evidence of prior granulomatous infection. 5. Stable calcified and noncalcified mediastinal lymphadenopathy. Electronically signed by: Hardik Suárez M.D. 05/08/2017 3:04 PM Dictated Date/Time: 05/08/2017 2:53 PM
--- NOTE | 2017-05-08 15:38 | DIAGNOSTIC IMAGING REPORT ---
ABDOMEN AND PELVIS CT WITH ORAL CONTRAST CT DOSE: HISTORY: Bladder cancer. TECHNIQUE: Multiaxial CT images of the abdomen and pelvis were performed following the use of oral contrast. A dose lowering technique was utilized adhering to the principles of ALARA. COMPARISON STUDY: Abdomen and pelvis CT 03/06/2017. FINDINGS: Please refer to the dedicated chest CT for further evaluation of the lung bases. There is left total hip arthroplasty. No suspicious lytic or blastic osseous lesions. Small gallstone is present. This remains unchanged. The unenhanced liver, adrenal glands, and pancreas are unremarkable. Multiple calcified splenic granulomas are again noted. Mild lateral perinephric edema persists. There is persistent right hydronephrosis with thickening of the urothelial lining within the right renal collecting system. There is a stent within the left common iliac artery. No significant retroperitoneal lymphadenopathy. Postoperative changes consistent with cystectomy with ileal loop divergent. Right lower quadrant ostomy site is again noted. The left ureter normal course and caliber. There is mild urothelial thickening within the left renal pelvis, unchanged. No evidence for bowel obstruction. Right inguinal hernia containing a segment of small bowel. However, there is no bowel wall thickening or obstruction. The prostate is also surgically absent. Stable punctate stone within the left kidney. IMPRESSION: 1. Interval development of a right inguinal hernia containing a short segment of small bowel. No evidence for bowel obstruction at this time. 2. Postoperative changes consistent with cystoprostatectomy with ileal loop diversion. 3. No significant change in the mild right hydronephrosis and urothelial thickening within the renal collecting systems, right greater than left. This may represent a urinary tract infection. This is overall similar to the prior study. 4. Stable punctate stone within the left kidney. 5. Cholelithiasis. Electronically signed by: Rigo Wagoner M.D. 05/08/2017 3:36 PM Dictated Date/Time: 05/08/2017 3:27 PM
== END | disposition home or self-care (01) ==
LOC: C.CTS 14:36
PROVIDERS: ATTEND Internal Medicine Hematology & Oncology
DX: C67.9 Malignant neoplasm of bladder, unspecified (principal); K40.90 Unilateral inguinal hernia, without obstruction or gangrene, not specified as recurrent; N20.0 Calculus of kidney; K80.20 Calculus of gallbladder without cholecystitis without obstruction; R91.8 Other nonspecific abnormal finding of lung field; J86.9 Pyothorax without fistula; R59.0 Localized enlarged lymph nodes

== ENCOUNTER 2017-05-19 05:18 | Observation (INO) | payer BC ==
[2017-05-13 10:04] VITALS: BMI 26.0
[2017-05-19] VITALS (12 sets, daily range): BP systolic 124–179; BP diastolic 61–73; PULSE 64–83; TEMP 36.4–36.9; O2SAT 92–99; Ht 185.4 cm; Wt 90.9 kg
[~2017-05-19] VITALS: Ht 185.4 cm; Wt 90.9 kg
[2017-05-19] MEDS ORDERED: CEFAZOLIN 2000MG IV PUSH 15 ML IV SCH (06:00)
[2017-05-19] MEDS: LACTATED RINGER'S 1000ML 1,000 ML IV SCH ×2 (06:14→17:58)
[2017-05-19] MEDS ORDERED: DEXAMETHASONE SOD INJ 4 MG/ML VIAL ONE (06:21)
[2017-05-19] MEDS ORDERED: ONDANSETRON INJ 2 MG/ML 2 ML VIAL ONE (06:21)
[2017-05-19] MEDS ORDERED: PROPOFOL IV EMULSION 10 MG/ML 20 ML VIAL IV ONE (06:21)
[2017-05-19] MEDS ORDERED: FENTANYL CITRATE INJ 50 MCG/1 ML 2 ML VIAL ONE ×2 (06:21→07:26)
[2017-05-19] MEDS ORDERED: LIDOCAINE HCL 2% 2 ML VIAL (20MG/ML) ONE (06:21)
[2017-05-19] MEDS ORDERED: BUPIVACAINE 0.5 % 5 MG/1 ML MPF 30ML VIAL ONE (06:39)
[2017-05-19] MEDS ORDERED: LIDOCAINE HCL 1% 20 ML VIAL ONE (06:39)
[2017-05-19] MEDS ORDERED: CEFAZOLIN SOD 1 GM VIAL ONE (06:39)
[2017-05-19] MEDS ORDERED: PHENYLEPHRINE 100MCG/ML 5ML SYR ONE (07:16)
[2017-05-19] MEDS ORDERED: FENTANYL CITRATE INJ 50 MCG/1 ML 2 ML VIAL IV PRN (07:30)
[2017-05-19] MEDS ORDERED: ONDANSETRON INJ 2 MG/ML 2 ML VIAL IV PRN ×2 (07:30→08:00)
[2017-05-19] MEDS ORDERED: LABETALOL HCL IV 5 MG/ML 20ML IV PRN (07:30)
[2017-05-19] MEDS ORDERED: ATROPINE SULFATE 0.1 MG/ML 5ML SYR IV PRN (07:30)
[2017-05-19] MEDS ORDERED: EpHEDrine SULFATE 50MG/5ML SYR ONE (07:42)
[2017-05-19] MEDS ORDERED: LACTATED RINGER'S 1000ML 1,000 ML IV SCH (07:59)
--- NOTE | 2017-05-19 07:59 | [facility] Operative Report ---
Operative Report Operative Date May 19, 2017. Pre-Operative Diagnosis Right Inguinal Hernia Post-Operative Diagnosis Same as preop, indirect defect Procedure(s) Performed Open Right Inguinal Hernia Repair with Mesh Surgeon Dr. Cabrera Heel Seam Rubber Surgeon(s) Will Soto PA-C Estimated Blood Loss 10 ml Findings indirect Rt ing hernia Specimens None per Surgeon Anesthesia Type General Complication(s) none Disposition Recovery Room / PACU I attest to the content of the Intraoperative Record and any orders documented therein. Any exceptions are noted below.
[2017-05-19] MEDS ORDERED: IPRATROPIUM BROMIDE/ALBUTEROL respimat INH INH PRN (08:00)
--- NOTE | 2017-05-19 08:26 | OPERATIVE REPORT ---
DATE OF OPERATION: 05/19/2017 NAME OF OPERATION: Open right inguinal hernia repair with mesh. PREOPERATIVE DIAGNOSIS: Right inguinal hernia. POSTOPERATIVE DIAGNOSIS: Same with indirect defect. STAFF SURGEON: Dr. Cabrera. GRAVITY PROSPECTING OPERATOR HELPER: Will Soto PA-C. ANESTHESIA: General. PROCEDURE: The patient was brought in the operating room and placed on the operating table in supine position. His right lower quadrant was prepped and draped in usual fashion. Using 0.5% plain Marcaine, skin and subcutaneous tissue were anesthetized. Incision made, carrying dissection down parallel to the inguinal ligament, dissecting out the external oblique fibers, incising them along their length to the external ring, mobilizing the cord structures. The patient had a relatively large indirect hernia sac which was dissected away from the cord structures and reduced. Internal ring was then reinforced using a mesh plug which was secured to surrounding tissue using 2-0 Ethibond suture. Then, a large mesh patch placed into the floor of the canal, around the cord structures, over the mesh plug, secured to surrounding tissue using 2-0 Ethibond suture. External oblique fibers were then closed over the mesh around the cord structures using 2-0 Ethibond suture. The site was anesthetized using 0.5% plain Marcaine and also irrigated with antibiotic solution. Subcutaneous tissue was reapproximated using 2-0 plain catgut suture, then the skin reapproximated using 4-0 nylon suture and Steri-Strips. My assistant news director helped with prepping, draping, exposure of the hernia, repair of the hernia and closure of the wound. I attest to the content of the Intraoperative Record and any orders documented therein. Any exception s are noted below.
[2017-05-19] MEDS ORDERED: IV FLUIDS COMPLETED PRN (08:30)
[2017-05-19] MEDS ORDERED: HYDR-5688 PO (08:31)
[2017-05-19] MEDS ORDERED: CEPH500C2 PO (08:31)
--- NOTE | 2017-05-19 08:33 | Discharge Instructions ---
Discharge Instructions Date of Service May 19, 2017. Admission Reason for Admission: Right Inguinal Hernia, Iddm Discharge Discharge Diagnosis / Problem: Rt inguinal hernia Discharge Goals Goal(s): Decrease discomfort, Improve function, Improve disease control Activity Recommendations Activity Limitations: as noted below Lifting Limitations: no more than 25 pounds Exercise/Sports Limitations: until after follow-up appointment May Resume Sexual Activity: when tolerated Shower/Bathe: tomorrow Driving or Machine Use: one week . Instructions / Follow-Up Instructions / Follow-Up SPECIAL CARE INSTRUCTIONS: * Cover incisions and change daily for comfort/drainage. * Leave steri strips in place * May use ibuprofen for pain as tolerated. * Expect some swelling and bruising. Call your doctor if: * Temperature above 101 degrees * Pain not relieved by pain medicine ordered * There is increased drainage or redness from any incision * You have any unanswered questions or concerns [phone]. FOLLOW UP VISIT: If not already scheduled, please call the office for a follow-up visit. for next week- some suture removal OFFICE PHONE NUMBER: Dr. Cabrera Office Current Hospital Diet Patient's current hospital diet: Diabetes Type 2 Diet Discharge Diet Recommended Diet: Diabetes Type 2 Diet Procedures Procedures Performed: Open Right Inguinal Hernia Repair with Mesh Pending Studies Studies pending at discharge: no Laboratory Results Hemoglobin A1c Test 04/08/17 06:27 Range/Units Estimated Average Glucose 192 mg/dl Hemoglobin A1c 8.3 H 4.5-5.6 % Medical Emergencies . Who to Call and When: Medical Emergencies: If at any time you feel your situation is an emergency, please call 911 immediately. . Non-Emergent Contact Non-Emergency issues call your: Primary Care Provider, Surgeon . "Provider Documentation" section prepared by Jeevan Cabrera. . VTE Core Measure Inpt VTE Proph given/why not?: SCD's
--- NOTE | 2017-05-19 08:41 | Anesthesiology Progress Note ---
Anesthesia Post Op Note Date & Time May 19, 2017 at 08:40 Vital Signs Pain Intensity: 0 Vital Signs Past 12 Hours Date Time Temp Pulse Resp B/P (MAP) Pulse Ox O2 Delivery O2 Flow Rate FiO2 05/19/17 08:35 71 16 126/60 94 Nasal Cannula 3 05/19/17 08:25 77 16 120/55 95 Oxymask 10 05/19/17 08:15 81 16 128/56 96 Oxymask 10 05/19/17 08:09 36.9 82 16 114/55 95 Oxymask 10 05/19/17 05:47 36.4 81 20 156/70 (98) 93 Room Air Notes Mental Status: alert / awake / arousable, participated in evaluation Pt Amnestic to Procedure: Yes Nausea / Vomiting: adequately controlled Pain: adequately controlled Airway Patency, RR, SpO2: stable & adequate BP & HR: stable & adequate Hydration State: stable & adequate Anesthetic Complications: no major complications apparent
[2017-05-19] MEDS ORDERED: GLUCOSE 10 TABS/TUBE PO PRN (09:45)
[2017-05-19] MEDS ORDERED: GLUCOSE 40% GEL 15 GM TUBE PO PRN (09:45)
[2017-05-19] MEDS ORDERED: GLUCAGON FOR INJ 1 MG VIAL SQ PRN (09:45)
[2017-05-19] MEDS ORDERED: DEXTROSE 50% 50 ML SYR IV PRN (09:45)
[2017-05-19] MEDS ORDERED: INSULIN HUMAN LISPRO (humaLOG) 100 UNITS/ML VIAL SC PRN (09:45)
[2017-05-19] MEDS: DOCUSATE SODIUM/SENNA 50/8.6MG TAB PO SCH ×2 (10:00→21:36)
[2017-05-19] MEDS: ALBUTEROL HFA 8 GM INHALER INH SCH ×4 (10:31→21:35)
[2017-05-19] MEDS: FLUTICASONE HFA 110MCG INHALER INH SCH ×2 (10:31→21:35)
--- NOTE | 2017-05-19 12:17 | History and Physical ---
History & Physical Date of Service May 19, 2017. History & Physical consult done [id number]
[2017-05-19] MEDS: CEFAZOLIN IV 1,000 MG in SYRINGE 0 ML IV SCH ×3 (13:01→23:40)
--- NOTE | 2017-05-19 13:07 | HISTORY & PHYSICAL EXAMINATION ---
DATE OF ADMISSION: 05/19/2017 Level 2 inpatient admission, 25 minutes. PHYSICIAN REQUESTING CONSULTATION: Dr. Cabrera. REASON FOR CONSULTATION: Medical management postop. HISTORY OF PRESENT ILLNESS: An 82-year-old white male admitted to Dr. Cabrera's service because of right inguinal hernia. The patient had right inguinal hernia open repairing with meshes procedure, which was done this morning. The patient tolerated the procedure well, no complaints. Denied fever or chill; denied cough, sputum. Denied nausea, vomiting, abdominal pain, diarrhea or constipation; denied dysuria, urgency or frequencies. Denied facial droop, slurry speeches or local weakness. Denies skin rashes. PAST MEDICAL HISTORY: Include chronic bronchiectasis, asthma, CAD, hypertension, prostate cancer status post brachytherapy, bladder cancer status post cystectomy, dyslipidemia, osteoarthritis; type 1 diabetic, on insulin pump; diabetic neuropathy. History of PE in 2008, treated with Coumadin for 6 months; CKD, type 3; diastolic CHF, peripheral artery disease status post left common iliac stenting, exploratory laparoscope and lysis of adhesion in regarding to bowel obstruction, inguinal hernia repairing, laparoscopic incisional hernia repairing, appendectomy, and cholecystectomy. ALLERGIES: IODINE AND SHELLFISH. FAMILY HISTORY: Include diabetic, heart disease, and hypertension. SOCIAL HISTORY: Former smoker, quit smoking many years ago. Denied illicit drug abuse. The patient is and lives with family. HOME MEDICATIONS: Include aspirin 81 mg p.o. q.a.m., Lipitor 80 mg p.o. at bedtime, vitamin D 1 tab p.o. daily, felodipine ER 10 mg p.o. q.a.m.; insulin pump, use as directed; metoprolol 100 mg p.o. q.a.m. and 50 mg p.o. at bedtime. Medicines as needed include Colace 1 cap p.o. b.i.d. as needed for constipation, Combivent 1 puff inhaled q. 6 hours p.r.n. for shortness of breath and wheezing. REVIEW OF SYSTEMS: Please see HPI, otherwise 14 points organ system review were negative. PHYSICAL EXAMINATION: VITAL SIGNS: Temperature is 36.7, pulse 70, respiration rate 16, blood pressure 132/72, pulse ox was 95% on 2 liters. GENERAL: The patient is a white male, awake, alert and orientated, pleasant, conversational, follows all commands. HEAD: Normocephalic. EYES: Pupils equal, round responds to light. EARS: Ear was normal. NOSE: Normal. NECK: Supple. Thyroid no enlargement. Trachea in the midline. HEART: Regular rhythm. S1, S2. LUNGS: Decreased breathing sounds. There was no wheezing, rhonchi or crackles. ABDOMEN: Soft, nontender. Bowel sound was positive. Ostomy bag in place, has urine collections. Urine was yellow and clean, Right inguinal area is in dress, no obvious tenderness. GENITOURINARY AND RECTAL: Deferred. NEUROLOGIC: Cranial nerves II-XII was intact. There was no deficits. BACK AND SPINE: C-spine, T spine and L-spine, no limited range of motion. BILATERAL EXTREMITIES: Moves upper and lower extremities. Upper extremities pulse was symmetric and positive. LABORATORY STUDIES: Recent labs include WBC 8, hemoglobin 12, platelets 218. PT/INR was 10/1. Recent preop labs include sodium 139, potassium 4.1, chloride 110, bicarbonate 20. BUN 50, creatinine 1.98. Blood glucose 219. Recent influenza A and B on 04/07/2017 was negative. IMAGING DATA: Chest CT on 05/08/2017 which shows emphysema. Evidence of prior granulomatous infection, stable calcified and noncalcified mediastinal lymphadenopathy, multiple solid pulmonary nodules in right lung. ASSESSMENT AND PLAN: 1. An 82-year-old white male admitted to Dr. Cabrera's service for the right inguinal hernia repairing. This conditions and pain management, PT/OT, deep venous thrombosis prophylaxis, and discharge plan will be per primary team. 2. The patient has history of bladder cancer, prostate cancer, history of cystectomy. Currently, has urostomy bag in place, making urine, will followup. 3. The patient has history of type 1 diabetic, using insulin pump. I agreed to restart insulin pump, management by the patient's self. The patient had meals after procedure. check am labs if pt still in hospital. 4. History of coronary artery disease, hypertension, dyslipidemia. We will continue current home medication which has been ordered by the primary team. 5. The patient has history of chronic kidney disease. The recent labs has been showing stable, I advised patient to follow up with PCP about this. follow up renal functions in am labs. 6. Discussed with patient and family about the patient's condition and care plan. I advised patient to follow up with PCP for all of his medical conditions after discharge from Dr. Cabrera's service, and keep appointment and instructions per Dr. Cabrera's recommendation. Thank you for the chance to involve in the care of the patient. We will sign out to the care of the patient and call us if needed. SUMMER
[2017-05-19] MEDS: HYDROCODONE/ACETAMIN 5/325MG TAB PO PRN ×2 (16:27→21:35)
[2017-05-19] MEDS ORDERED: NURSING VERBAL MED ORDER ONE (16:45)
[2017-05-19] MEDS ORDERED: ATORVASTATIN 40 MG TAB PO SCH (21:00)
[2017-05-19] MEDS ORDERED: METOPROLOL SUCC 50MG EXT REL TAB PO SCH (21:00)
[2017-05-20 03:25] VITALS: BP 135/73; PULSE 86; TEMP 37.6; O2SAT 69
[2017-05-20 03:35] VITALS: O2SAT 85
[2017-05-20 03:40] VITALS: O2SAT 93
[2017-05-20] MEDS: HYDROCODONE/ACETAMIN 5/325MG TAB PO PRN ×3 (03:43→13:06)
[2017-05-20] MEDS: CEFAZOLIN IV 1,000 MG in SYRINGE 0 ML IV SCH ×3 (05:54→12:03)
--- NOTE | 2017-05-20 07:15 | Surgery Progress Note ---
Surgery Progress Note Date of Service May 20, 2017. Subjective Post OP Day: 1 + feeling well, + flatus, + pain controlled (po), + diet (tolerating), No nausea Objective Vital Signs: Date Time Temp Pulse Resp B/P (MAP) Pulse Ox O2 Delivery O2 Flow Rate FiO2 05/20/17 03:40 93 Nasal Cannula 3.0 05/20/17 03:35 85 Nasal Cannula 2.0 05/20/17 03:25 37.6 86 16 135/73 (93) 69 Room Air 05/19/17 23:50 Room Air 05/19/17 23:14 79 153/71 (98) 05/19/17 22:11 36.4 83 18 176/67 (103) 92 Room Air 05/19/17 21:31 72 179/73 (108) 05/19/17 19:09 36.4 72 18 158/64 (95) 95 Room Air 05/19/17 16:22 99 Room Air 05/19/17 15:53 36.4 64 18 164/63 (96) 98 Room Air 05/19/17 12:57 36.7 66 16 144/65 (91) 96 2.0 05/19/17 11:08 36.7 70 16 137/72 (93) 95 Nasal Cannula 2.0 05/19/17 10:00 36.5 73 17 138/63 (88) 92 Nasal Cannula 2.0 05/19/17 09:27 36.4 70 18 124/68 (86) 98 Nasal Cannula 2.0 05/19/17 09:00 36.9 75 16 126/61 (82) 97 Nasal Cannula 3.0 05/19/17 09:00 Room Air 3.0 05/19/17 09:00 Nasal Cannula 3.0 05/19/17 08:45 37.1 75 16 122/58 96 Nasal Cannula 3 05/19/17 08:35 71 16 126/60 94 Nasal Cannula 3 05/19/17 08:25 77 16 120/55 95 Oxymask 10 05/19/17 08:15 81 16 128/56 96 Oxymask 10 05/19/17 08:09 36.9 82 16 114/55 95 Oxymask 10 Incision(s): clean, dry Laboratory Results: Results Past 24 Hours Test 05/19/17 08:16 05/19/17 12:03 05/20/17 04:44 Range/Units Bedside Glucose 219 362 70-99 mg/dl Assessment & Plan s/p right inguinal hernia repair doing well ambulate AM lab pending 05/20/17- pt doing well- has O2 on and labs pending- would plan d/c unless sats low or labs significantly abnormal.- Dr Cabrera
[2017-05-20 08:28] LABS: CALCIUM 8.3 mg/dl (8.5-10.1); CREATININE 2.34 mg/dl (0.60-1.40); POTASSIUM 4.4 mmol/L (3.5-5.1)
--- NOTE | 2017-05-20 08:33 | Anesthesiology Progress Note ---
Anesthesia Post Op Note Date & Time May 20, 2017 at 08:32 Vital Signs Pain Intensity: 1 Vital Signs Past 12 Hours Date Time Temp Pulse Resp B/P (MAP) Pulse Ox O2 Delivery O2 Flow Rate FiO2 05/20/17 03:40 93 Nasal Cannula 3.0 05/20/17 03:35 85 Nasal Cannula 2.0 05/20/17 03:25 37.6 86 16 135/73 (93) 69 Room Air 05/19/17 23:50 Room Air 05/19/17 23:14 79 153/71 (98) 05/19/17 22:11 36.4 83 18 176/67 (103) 92 Room Air 05/19/17 21:31 72 179/73 (108) Notes Mental Status: alert / awake / arousable Pt Amnestic to Procedure: Yes Nausea / Vomiting: adequately controlled Airway Patency, RR, SpO2: stable & adequate BP & HR: stable & adequate Hydration State: stable & adequate Anesthetic Complications: osteotomy for urine
[2017-05-20] MEDS: ALBUTEROL HFA 8 GM INHALER INH SCH (08:43)
[2017-05-20] MEDS: FLUTICASONE HFA 110MCG INHALER INH SCH (08:43)
[2017-05-20] MEDS ORDERED: FELODIPINE 5 MG TABCR PO SCH (09:00)
[2017-05-20] MEDS ORDERED: METOPROLOL SUCC 50MG EXT REL TAB PO SCH (09:00)
[2017-05-20] MEDS: DOCUSATE SODIUM/SENNA 50/8.6MG TAB PO SCH (09:05)
[2017-05-20 10:30] VITALS: O2SAT 94
[2017-05-20] MEDS ORDERED: MAGNESIUM OXIDE 400 MG TAB PO STA (10:33)
[2017-05-20 10:35] VITALS: O2SAT 86
[2017-05-20 12:26] VITALS: BP 135/73; PULSE 86; TEMP 37.6; O2SAT 86
--- NOTE | 2017-05-20 18:07 | Progress Note ---
Subjective Date of Service: May 20, 2017. Subjective Pt evaluation today including: conversation w/ patient, conversation w/ family (2 daughters at bedside), physical exam, chart review, lab review, review of inpatient medication list Pain: mild inguinal pain only PO Intake: ate good breakfast Voiding: no voiding problems pt feels good denies ANY dyspnea, cough, or congestion has insulin pump on - FSBS this am was <160 had O2 requirement overnight but O2 now d/c with O2 sats of 93% in room air two-step ordered - does not need O2 - lowest sat w/ walking 91% Problem List Medical Problems: (1) Anterior epistaxis Status: Acute (2) Bronchitis Status: Acute (3) COPD exacerbation Status: Acute (4) Cough Status: Acute (5) DKA (diabetic ketoacidoses) Status: Acute (6) Small bowel obstruction Status: Acute (7) SOB (shortness of breath) Status: Acute (8) UTI (urinary tract infection) Status: Acute Review of Systems Respiratory: No shortness of breath, No dyspnea on exertion Cardiac: No chest pain, No orthopnea, No edema Abdomen: No pain, No nausea, No vomiting Objective Vital Signs Date Time Temp Pulse Resp B/P (MAP) Pulse Ox O2 Delivery O2 Flow Rate FiO2 05/20/17 12:26 37.6 86 16 86 Room Air 05/20/17 10:35 86 Room Air 05/20/17 10:30 94 Room Air 05/20/17 09:15 Room Air 93 05/20/17 03:40 93 Nasal Cannula 3.0 05/20/17 03:35 85 Nasal Cannula 2.0 05/20/17 03:25 37.6 86 16 135/73 (93) 69 Room Air 05/19/17 23:50 Room Air 05/19/17 23:14 79 153/71 (98) 05/19/17 22:11 36.4 83 18 176/67 (103) 92 Room Air 05/19/17 21:31 72 179/73 (108) 05/19/17 19:09 36.4 72 18 158/64 (95) 95 Room Air Physical Exam General Appearance: no apparent distress ENT: pharynx normal Neck: no JVD Respiratory/Chest: no respiratory distress, no accessory muscle use, + rales ( scant dry rales bases only) Cardiovascular: regular rate, rhythm, no gallop Abdomen: normal bowel sounds, non tender, soft, no organomegaly, + pertinent finding (urostomy in place with clear yellow urine in the bag) Extremities: no pedal edema Neurologic/Psychiatric: alert, oriented x 3 Skin: + pertinent finding (fingernail clubbing - mild ) Laboratory Results Last 24 Hours Test 05/20/17 07:24 Sodium Level 140 mmol/L Potassium Level 4.4 mmol/L Chloride Level 108 mmol/L Carbon Dioxide Level 25 mmol/L Anion Gap 6.0 mmol/L Blood Urea Nitrogen 48 mg/dl Creatinine 2.34 mg/dl Est Creatinine Clear Calc Drug Dose 26.6 ml/min Estimated GFR () 28.5 Estimated GFR (Non- 24.6 BUN/Creatinine Ratio 20.6 Random Glucose 135 mg/dl Calcium Level 8.3 mg/dl Magnesium Level 1.7 mg/dl Assessment and Plan 82yo male - 1. CKD stage 4 - creatinine today is 2.3; baseline is about 2.1 to 2.2. This is satisfactory. Volume status appears appropriate. 2. very minimal hypomagnesemia - mag oxide 800mg po x 1. 3. fingernail clubbing, COPD, possible PF (based on CT 05/2017) - initially I was concerned he needed home O2. nursing staff walked patient - O2 sats dropped into the mid-upper 80s. formal 2-step ordered - O2 sats at lowest were 91% -- NO home O2 needed. He denied ANY dyspnea, cough, etc. 4. low-grade temperature overnight (37.6) - no signs/symptoms of infection this AM. 5. T1DM on insulin pump - glucose this am satisfactory; I counseled him that if his sugars at home ran high due to perioperative stress he should call the endo office for guidance. 6. asthma - not in exacerbation 7. CAD - no ischemic sx's at this time 8. bladder ca s/p urostomy formation 9. h/o chronic diastolic CHF - compensated 10. PAD - noted from medical standpoint he appears optimized and I feel he can d/c home with close f/u with his PCP and other providers Discharge planning: home with home health
--- NOTE | 2017-05-21 08:35 | DISCHARGE SUMMARY ---
ATTENDING PHYSICIAN: Jeevan Cabrera MD. PRIMARY DISCHARGE DIAGNOSIS: Right inguinal hernia. SECONDARY DISCHARGE DIAGNOSES: 1. Chronic obstructive pulmonary disease. 2. Chronic kidney disease. 3. Type 1 diabetes. 4. Coronary artery disease. 5. Peripheral arterial disease. 6. History of congestive heart failure. 7. Hypertension. 8. History of bladder cancer with a urostomy. PROCEDURE PERFORMED: Open right inguinal hernia repair with mesh. CONSULTATIONS: [facility] hospitalist to assist in medical management. HOSPITAL COURSE: The patient is an 82-year-old male brought in through same day for right inguinal hernia repair. The procedure was well tolerated. He was transferred to the surgical floor for overnight observation. The hospitalist was consulted routinely. He has an insulin pump and was able to maintain his home insulin schedule. His blood pressure remained stable. His O2 sats were less than 90% at times in the morning postoperative day 1. He was increasing ambulation throughout the day. He was tolerating diet and oral analgesics. He had 2-step and maintained saturation at 91%. He was stable for discharge home later in the day. DISCHARGE INSTRUCTIONS: Discharged home. Follow up with Dr. Cabrera in 1 week. DISCHARGE MEDICATIONS: [place] 1-2 tablets every 6 hours as needed for pain, Keflex 500 mg p.o. t.i.d. Resume home meds: Ventolin HFA 2 puffs q.i.d., aspirin 81 mg daily, Lipitor 80 mg at bedtime, vitamin D 1000 units daily, Colace 1 tablet b.i.d. as needed, felodipine 10 mg daily, Flovent 2 puffs b.i.d., lispro insulin pump, Combivent 1 puff q. 6 hours as needed, Toprol-XL 100 mg daily in the morning and 50 mg at night. MTDD
== END 2017-05-20 13:21 | disposition home health service (06) ==
LOC: C.ACU 05:18 → INTOOBSV 08:05 → C.MSN 08:05 → ENRESERV 08:37
PROVIDERS: ADMIT Surgery; ATTEND Surgery
DX: K40.90 Unilateral inguinal hernia, without obstruction or gangrene, not specified as recurrent (principal); J47.9 Bronchiectasis, uncomplicated; J44.9 Chronic obstructive pulmonary disease, unspecified; I12.9 Hypertensive chronic kidney disease with stage 1 through stage 4 chronic kidney disease, or unspecified chronic kidney disease; N18.4 Chronic kidney disease, stage 4 (severe); E10.21 Type 1 diabetes mellitus with diabetic nephropathy; I73.9 Peripheral vascular disease, unspecified; I25.10 Atherosclerotic heart disease of native coronary artery without angina pectoris; G47.33 Obstructive sleep apnea (adult) (pediatric); M16.9 Osteoarthritis of hip, unspecified; R33.9 Retention of urine, unspecified; Z99.81 Dependence on supplemental oxygen; Z85.51 Personal history of malignant neoplasm of bladder; Z96.41 Presence of insulin pump (external) (internal); Z87.440 Personal history of urinary (tract) infections; Z93.6 Other artificial openings of urinary tract status; Z79.82 Long term (current) use of aspirin; Z87.891 Personal history of nicotine dependence; Z85.46 Personal history of malignant neoplasm of prostate; Z91.013 Allergy to seafood; Z85.828 Personal history of other malignant neoplasm of skin; Z87.01 Personal history of pneumonia (recurrent); Z82.49 Family history of ischemic heart disease and other diseases of the circulatory system

== ENCOUNTER → 2017-05-28 | Outpatient (CLI) | payer BC ==
[~2017-05-28] MED LIST changes: +CEPH500C2 PO; +HYDR-5688 PO
[2017-05-28 13:47] LABS: HEMOGLOBIN A1C 7.9 % (4.5-5.6)
== END | disposition home or self-care (01) ==
LOC: C.LAB 18:06
PROVIDERS: ATTEND Family Medicine
DX: L57.0 Actinic keratosis (principal); E10.649 Type 1 diabetes mellitus with hypoglycemia without coma; N18.3 Chronic kidney disease, stage 3 (moderate); C67.9 Malignant neoplasm of bladder, unspecified

== ENCOUNTER → 2017-08-19 | Outpatient (CLI) | payer BC ==
--- NOTE | 2017-08-19 16:17 | DIAGNOSTIC IMAGING REPORT ---
ABD/PELVIS ORAL CONT ONLY CLINICAL HISTORY: 82 years-old Male presenting with bladder cancer. TECHNIQUE: Multidetector CT of the abdomen and pelvis was performed after the administration of oral contrast only. IV contrast: None. A dose lowering technique was used consistent with the principles of ALARA (as low as reasonably achievable). COMPARISON: 05/08/2017. CT DOSE (mGy.cm): The estimated cumulative dose is 1010.36 mGy.cm. FINDINGS: Tubular Stock Glass Bulb Machine Former topogram: Total left hip arthroplasty. Surgical clips project over the bilateral iliac regions. Lung bases: Dependent reticulation and groundglass opacity. Mild bronchial wall thickening. Scattered punctate calcifications, possibly granulomata. Solid subpleural 3 mm nodule in the posterior basal right lower lobe, unchanged (series 6 image 23). Emphysematous changes. Coronary artery and mitral annular calcification. Normal heart size. No pericardial or pleural effusion. Liver: Normal morphology. Normal density. Biliary: No gross biliary ductal dilatation allowing for noncontrast technique. Gallbladder contains gallstones. Pancreas: Moderate parenchymal atrophy. Spleen: Scattered punctate calcifications likely indicate prior granulomatous infection. Adrenal glands: Normal noncontrast appearance. Kidneys and ureters: Urothelial thickening with pelviectasis on the right similar to prior exam. Reticular thickening on the left without distention of the collecting system. Postsurgical changes of ileal conduit diversion in the right lower quadrant. Bladder: Postsurgical changes of cystectomy. Pelvic organs: Postsurgical changes of prostatectomy. Bowel: Postsurgical changes of an enteroenteric anastomosis in the superior pelvis, which is patent. Mild stool burden throughout normal caliber colon. No bowel obstruction. Trace hiatal hernia. Peritoneal cavity: No free fluid or intraperitoneal gas. Lymph nodes: No gross lymphadenopathy allowing for noncontrast technique. Surgical clips along the bilateral iliac regions likely indicating prior lymph node dissection. Vasculature: Atherosclerosis of the normal caliber abdominal aorta. Postsurgical changes of the left common iliac artery may be present. A stent graft is in place within the left common and external iliac artery. Patency cannot be assessed without intravenous contrast. Abdominal wall: Postsurgical changes of the ventral abdomen with a surgical mesh in place. No associated fluid. No abnormality associated with the right lower quadrant ostomy. Musculoskeletal: Degenerative changes of the spine. Postsurgical changes of total left hip arthroplasty. IMPRESSION: 1. No evidence of metastatic disease in abdomen or pelvis. 2. Postsurgical changes of cystoprostatectomy with ureteral diversion and ileal conduit conduit formation with the right lower quadrant ostomy. 3. Urothelial thickening and mild collecting system distention likely indicates chronic reflux and chronic inflammatory change. Superimposed acute infection is felt to be less likely, however, correlate with urinalysis. 4. Evidence of iliac lymph node dissection. No lymphadenopathy. 5. Patent enteroenteric anastomosis. No bowel obstruction. 6. Cholelithiasis. 7. Evidence of prior granulomatous infection. 8. Emphysema with bibasilar chronic lung disease. Electronically signed by: Hardik Suárez M.D. 08/19/2017 4:15 PM Dictated Date/Time: 08/19/2017 4:05 PM
--- NOTE | 2017-08-19 16:18 | DIAGNOSTIC IMAGING REPORT ---
(CHEST) THORAX WITHOUT CLINICAL HISTORY: 82 years-old Male with CT. Follow-up study in a patient with history of bladder cancer. TECHNIQUE: Multiaxial CT images of the chest were performed without contrast. A dose lowering technique was utilized adhering to the principles of ALARA. COMPARISON: CT abdomen and pelvis of same day, CT chest 05/08/2017, CTA chest 08/31/2011. FINDINGS: No dominant thyroid nodule. Multiple calcified subcarinal and left hilar lymph nodes. There is enlarged pretracheal lymph node measuring 1.5 x 1.9 cm on image 129 of series 4, unchanged. 9 mm right paratracheal lymph node on image 1:15 series 4 is also unchanged. No new adenopathy identified. The heart is within the upper limits of normal in size with coronary arterial and aortic annular calcifications noted. No aortic aneurysm. Multiple calcified mckeon limit compatible with prior granulomatous disease. There is no pneumothorax or pleural effusion. Moderate to severe upper lobe predominant emphysema. Multiple solid pulmonary nodules are redemonstrated, largest of which measures 8 mm within the lateral segment right middle lobe, unchanged. Multiple perifissural lymph nodes are again seen adjacent to the minor fissure which are also stable. Stable 6 mm pleural-based nodule of the posterior basal segment right lower lobe. There are no new or enlarging pulmonary nodules identified. Subpleural reticular opacities are again seen suggesting areas of scarring/fibrosis. Fissural lymph nodes are also seen at the level of the left lung base adjacent to the major fissure. Central airways are clear. Calcified granulomata about the liver and spleen. Cholelithiasis is partially imaged. No acute process of the imaged upper abdomen. Soft tissues are within normal limits. Bones appear intact. No suspicious lytic or blastic bony lesions about the chest. IMPRESSION: 1. No acute intrathoracic abnormality identified. 2. Multiple scattered solid pulmonary nodules about the bilateral lungs as above appear unchanged. The largest nodule measures 8 mm within the lateral segment right middle lobe and is stable in size and appearance dating back to 08/31/2011 compatible with benign etiology. 3. Stable nonspecific mild mediastinal adenopathy. 4. Prior granulomatous disease. 5. Emphysema. 6. Cholelithiasis. Electronically signed by: Alexys Jhaveri M.D. 08/19/2017 4:16 PM Dictated Date/Time: 08/19/2017 4:06 PM
== END | disposition home or self-care (01) ==
LOC: C.CTS 15:28
PROVIDERS: ATTEND Internal Medicine Hematology & Oncology
DX: C67.9 Malignant neoplasm of bladder, unspecified (principal)

== ENCOUNTER → 2017-08-25 | Outpatient (CLI) | payer BC ==
[2017-08-25 11:08] LABS: EOS % 0.3 %; EOS ABS # 0.03 K/uL (0-0.5); HEMATOCRIT 39.5 % (42-52); HEMOGLOBIN 12.8 g/dL (14.0-18.0); IG# 0.05 K/uL (0.00-0.02); LYMPH % 18.2 %; LYMPH ABS # 1.84 K/uL (1.2-3.4); MEAN CELL VOLUME 83.5 fL (80-100); MEAN CORPUSCULAR HEMOGLOBIN 27.1 pg (25-34); MEAN CORPUSCULAR HGB CONC 32.4 g/dl (32-36); MEAN PLATELET VOLUME 10.1 fL (7.4-10.4); MONO % 8.7 %; MONO ABS # 0.88 K/uL (0.11-0.59); NEUT % 72.3 %; NEUT ABS # 7.29 K/uL (1.4-6.5); PLATELET COUNT 267 K/uL (130-400); RED CELL DISTRIBUTION WIDTH CV 17.9 % (11.5-14.5); RED CELL DISTRIBUTION WIDTH SD 54.8 fL (36.4-46.3); WHITE BLOOD COUNT 10.09 K/uL (4.8-10.8)
[2017-08-25 11:42] LABS: ALBUMIN 2.8 gm/dl (3.4-5.0); BLOOD UREA NITROGEN 57 mg/dl (7-18); CALCIUM 8.5 mg/dl (8.5-10.1); CARBON DIOXIDE 20 mmol/L (21-32); CREATININE 2.75 mg/dl (0.60-1.40); GLUCOSE 211 mg/dl (70-99); PHOSPHORUS 3.4 mg/dl (2.5-4.9); POTASSIUM 3.9 mmol/L (3.5-5.1); SODIUM 142 mmol/L (136-145)
== END | disposition home or self-care (01) ==
LOC: C.LAB1850 10:32
PROVIDERS: ATTEND Internal Medicine Nephrology
DX: C61 Malignant neoplasm of prostate (principal); C67.9 Malignant neoplasm of bladder, unspecified; N18.3 Chronic kidney disease, stage 3 (moderate)